=== PATIENT | male | born 1950 | race Caucasian/White ===

== ENCOUNTER 2020-09-24 22:26 | Observation (INO) | payer MEDICARE, OTHER, SELFPAY ==
[2020-09-24 22:28] VITALS: BP 181/100; PULSE 102; RESP 16; TEMP 36.6; O2SAT 97; BMI 32.0
--- NOTE | 2020-09-24 23:01 | HMH.EDGIBL ---
ED Disposition Clinical Impression: Lower gastrointestinal hemorrhage, Acute proctitis Disposition: Admitted as Observation Condition on Discharge: Good Referrals: Constantino Magallanes MD [Primary Care Provider] - - Critical Care Critical Care Time: No Attestation: On 09/24/20, the high probability of a clinically significant, sudden or life threatening deterioration of the following system(s) required my full and direct attention, intervention and personal management. The time I documented below is in addition to time spent performing reported procedures but includes the following listed in this critical care notation. Medical Decision Making - Medical Records Medical records reviewed: Yes: I reviewed the patient's medical records. - Luis Inquiry Pt receiving controlled substance: No Vital Signs: 09/24/20 22:28 09/25/20 00:03 Temperature 97.9 F Temperature Source Oral Pulse Rate 100 H Pulse Rate [Right] 102 H Respiratory Rate 16 Blood Pressure 154/92 H Blood Pressure [Right Arm] 181/100 H Blood Pressure Mean [Right Arm] 127 02 Sat by Pulse Oximetry 97 100 Oxygen Delivery Method Room Air - Lab Data Lab results reviewed: Yes: I reviewed the patient's lab results. Lab Results 09/24/20 22:45: WBC 6.8, RBC 4.11 L, Hgb 13.5 L, Hct 41.1 L, MCV 100.0 H, MCH 32.8 H, MCHC 32.8, RDW 13.0, Plt Count 275, MPV 7.6, Neut % (Auto) 55.8, Lymph % (Auto) 31.9, [place] % (Auto) 7.8, Eos % (Auto) 4.1, Baso % (Auto) 0.3, Neut # (Auto) 3.8, Lymph # (Auto) 2.2, [place] # (Auto) 0.5, Eos # (Auto) 0.3, Baso # (Auto) 0.0, ESR 15 09/24/20 22:45: Sodium 133 L, Potassium 4.1, Chloride 101, Carbon Dioxide 21 L, Anion Gap 15.1 H, BUN 12, Creatinine 0.80, Estimated Creat Clear 97, Estimated GFR 96, Est GFR ( Amer) 116, Glucose 92, Calcium 9.1, Total Bilirubin 0.4, AST 32, ALT 26, Alkaline Phosphatase 90, C-Reactive Protein 0.7, Total Protein 7.5, Albumin 4.6, Globulin 2.9, Albumin/Globulin Ratio 1.6, Amylase 68, Lipase 52, Procalcitonin 0.034 09/24/20 23:20: Urine Color Yellow, Urine Appearance Clear, Urine pH 6.0, Ur Specific [place] 1.010, Urine Protein Negative, Urine Glucose (UA) Negative, Urine Ketones Negative, Urine Blood Trace-l, Urine Nitrate Negative, Urine Bilirubin Negative, Urine Urobilinogen 0.2, Ur Leukocyte Esterase Negative, Urine WBC Occasional, Ur Squamous Epith Cells Occasional, Urine Bacteria Trace 09/24/20 23:20: Stool Occult Blood Positive A 09/24/20 23:27: PT 10.9, INR 0.92 Result diagrams: 09/24/20 22:45 09/24/20 22:45 Orders (Tests/Meds): ED MEDICATIONS Generic Name Dose Route Start Last Admin Trade Name Freq PRN Reason Stop Dose Admin Sodium Chloride 1,000 mls @ 999 mls/hr 09/24/20 23:15 09/24/20 23:32 Sod Chlor 0.9% 1000ml Bag IV 09/25/20 00:15 999 mls/hr .Q1H1M AMANDA Administration Pantoprazole Sodium 80 mg/ 100 mls @ 10 mls/hr 09/25/20 00:05 Sodium Chloride IV 09/27/20 00:04 .Q10H AMANDA Sodium Chloride 8 ml 09/24/20 23:04 Sodium Chloride 0.9% 10ml Vial IV 10/24/20 23:03 NEEDED PRN dilute pepcid Discontinued Medications Generic Name Dose Route Start Last Admin Trade Name Freq PRN Reason Stop Dose Admin Famotidine 20 mg 09/24/20 23:04 09/24/20 23:31 Famotidine 20mg/2ml Vial IV 09/24/20 23:05 20 mg ONCE ONE Administration Pantoprazole Sodium 80 mg/ 100 mls @ 100 mls/hr 09/24/20 23:04 09/24/20 23:31 Sodium Chloride IV 09/25/20 00:03 100 mls/hr ONCE ONE Administration Iopamidol 75 ml 09/24/20 23:58 09/24/20 23:58 Iopamidol-370 (76%);100ml Bottle IV 09/24/20 23:59 75 ml ONCE ONE Administration Metoclopramide HCl 10 mg 09/24/20 23:04 09/24/20 23:31 Metoclopramide Hcl 10mg/2ml Vial IVP 09/24/20 23:05 10 mg ONCE ONE Administration Ondansetron HCl 4 mg 09/24/20 23:04 09/24/20 23:31 Ondansetron 4mg/2ml Vial IV 09/24/20 23:05 4 mg ONCE ONE Administration Sodium Chloride 10 ml 09/24/20 23:
--- NOTE | 2020-09-24 23:02 | CT_ITS ---
PROCEDURE INFORMATION: Exam: CT Abdomen And Pelvis With Contrast Exam date and time: 09/24/2020 11:02 PM Age: 70 years old Clinical indication: Patient HX: Rectal bleeding gassy feeling in bad TECHNIQUE: Imaging protocol: Computed tomography of the abdomen and pelvis with contrast. Radiation optimization: All CT scans at this facility use at least one of these dose optimization techniques: automated exposure control; mA and/or kV adjustment per patient size (includes targeted exams where dose is matched to clinical indication); or iterative reconstruction. Contrast material: ISOVUE; Contrast volume: 75 ml; Contrast route: IV; COMPARISON: No relevant prior studies available. FINDINGS: Liver: There is a small irregular area of enhancement involving the left lobe of the liver measuring 1.2 cm. This could reflect hemangioma. Gallbladder and bile ducts: Normal. No calcified stones. No ductal dilation. Pancreas: Normal. No ductal dilation. Spleen: Normal. No splenomegaly. Adrenal glands: Normal. No mass. Kidneys and ureters: Normal. No hydronephrosis. Stomach and bowel: There is wall thickening involving the rectum concerning for proctitis. There is diverticulosis in the descending and rectosigmoid colons. There is no additional areas of colitis. Appendix: Appendix normal. No small bowel obstruction. Intraperitoneal space: Unremarkable. No free air. No significant fluid collection. Vasculature: Unremarkable. No abdominal aortic aneurysm. Lymph nodes: Unremarkable. No enlarged lymph nodes. Urinary bladder: Mild urinary bladder wall thickening could be due to cystitis. Reproductive: Unremarkable as visualized. Bones/joints: Unremarkable. No acute fracture. Soft tissues: Small bilateral inguinal hernias with fat. IMPRESSION: 1. Proctitis. 2. Diverticulosis without diverticulitis.
[2020-09-24 23:26] LABS: Microscopic, Urine URINE MICROSCOPIC (MICROSCOPIC)
[2020-09-24 23:27] LABS: Basophils % 0.3 % (0.1-2.0); Eosinophils # 0.3 K/mm3 (0.0-0.4); Eosinophils % 4.1 % (0.1-12.0); Hematocrit 41.1 % (42.0-52.0); Hemoglobin 13.5 g/dL (14.1-18.0); Lymphocytes # 2.2 K/mm3 (0.7-4.5); Lymphocytes % 31.9 % (10-50); Mean Corpuscular HGB Conc 32.8 g/dL (31.8-35.4); Mean Corpuscular Hemoglobin 32.8 pg (27.0-31.2); Mean Platelet Volume 7.6 fl (7.4-10.4); Monocytes # 0.5 K/mm3 (0.1-1.0); Monocytes % 7.8 % (1.7-9.3); Neutrophils # 3.8 K/mm3 (1.8-7.8); Neutrophils % 55.8 % (37.0-80.0); Platelet Count 275 K/mm3 (142-424); Red Blood Count 4.11 M/mm3 (4.60-6.20); White Blood Count 6.8 K/mm3 (4.8-10.8)
[2020-09-24 23:30] LABS: Appearance,Urine CLEAR (Clear); Bilirubin,Urine Negative (Negative); Blood, Urine TRACE-L (Negative); Color,Urine YELLOW (Yellow); Glucose,Urine (UA) Negative (Negative); Ketones,Urine Negative (Negative); Leukocyte Esterase,Urine Negative (Negative); Nitrate,Urine Negative (Negative); Protein,Urine Negative (Negative); Urobilinogen,Urine 0.2 EU/dl (0.2)
[2020-09-24 23:31] LABS: Alanine Aminotransferase 26 U/L (12-78); Albumin Level 4.6 g/dl (3.5-5.0); Albumin/Globulin Ratio 1.6 (1.1-1.8); Alkaline Phosphatase 90 U/L (38-126); Amylase 68 U/L (30-110); Anion Gap 15.1 mEq/L (5-15); Aspartate Amino Transferase 32 U/L (17-59); Bilirubin,Total 0.4 mg/dl (0.2-1.3); Blood Urea Nitrogen 12 mg/dl (9-20); Calcium 9.1 mg/dl (8.4-10.2); Carbon Dioxide 21 mmol/L (22.0-30.0); Chloride 101 mmol/L (98-107); Creatinine Clearance Estimated 97 mL/min (50-200); Estimated Glomerular Filt Rate 96 ml/min (>60); GFR (African American) 116 ML/MIN (>60); Globulin 2.9 g/dL (1.3-3.2); Glucose 92 mg/dl (74-100); Lipase 52 U/L (23-300); Potassium 4.1 mmoL/L (3.5-5.1); Sodium 133 mmol/L (136-145); Total Protein,Serum 7.5 g/dl (6.3-8.2)
[2020-09-24 23:36] LABS: C-Reactive Protein 0.7 mg/L (0-4)
[2020-09-24 23:37] LABS: Occult Blood,Stool Positive (Negative)
[2020-09-24 23:47] LABS: Bacteria,Urine Trace /lpf; Squamous Epithelial Cell,Urine Occasional #/hpf (0-5); WBC,Urine Occasional #/hpf (0-3)
[2020-09-24 23:49] LABS: Adenovirus,PCR Not Detected (NotDetected); Bordetella Pertussis Not Detected (NotDetected); Chlamydophila Pneumoniae, PCR Not Detected (NotDetected); Coronavirus 19, PCR Not Detected (NotDetected); Coronavirus 229E Not Detected (NotDetected); Coronavirus NL63 Not Detected (NotDetected); Coronavirus OC43 Not Detected (NotDetected); Coronovirus HKU1,PCR Not Detected (NotDetected); Human Metapneumovirus Not Detected (NotDetected); Influenza A, PCR Not Detected (NotDetected); Influenza AH1, 2009 Not Detected (NotDetected); Influenza AH1, PCR Not Detected (NotDetected); Influenza AH3,PCR Not Detected (NotDetected); Influenza B, PCR Not Detected (NotDetected); Mycoplasma Pneumoniae, PCR Not Detected (NotDetected); Parainfluenza 1, PCR Not Detected (NotDetected); Parainfluenza 2, PCR Not Detected (NotDetected); Parainfluenza 3, PCR Not Detected (NotDetected); Parainfluenza 4, PCR Not Detected (NotDetected); Respiratory Syncytial Virus Not Detected (NotDetected); Rhinovirus/Enterovirus Not Detected (NotDetected)
[2020-09-24 23:51] LABS: Procalcitonin 0.034 ng/mL (0.0-2.0)
[2020-09-25] VITALS (19 sets, daily range): BP systolic 111–158; BP diastolic 61–92; PULSE 72–107; RESP 16–20; TEMP 36.5–36.8; O2SAT 93–100; BMI 31.7
[2020-09-25 00:13] LABS: Erythrocyte Sedimentation Rate 15 mm/hr (0-20)
[2020-09-25 00:25] LABS: INR 0.92 (0.9-1.1); Prothrombin Time 10.9 seconds (10.1-12.5)
--- NOTE | 2020-09-25 02:03 | PC.NURSE ---
PT ARRIVED TO FLOOR VIA W/C FROM ED WITH STAFF 0204
--- NOTE | 2020-09-25 04:32 | PC.NURSE ---
Pt has not c/o any discomfort to abdomen since arrival to shift. Has ambulated to BR x1. Pt states that he had 1 bloody stool that was not seen by staff. Pt was advised to not flush toliet next time he has a stool. No other concerns. Will continue to monitor.
[2020-09-25 06:51] LABS: Chloride 100 mmol/L (98-107)
[2020-09-25 06:52] LABS: Potassium 4.8 mmoL/L (3.5-5.1); Sodium 134 mmol/L (136-145)
[2020-09-25 06:55] LABS: Anion Gap 13.8 mEq/L (5-15); Blood Urea Nitrogen 11 mg/dl (9-20); Calcium 8.9 mg/dl (8.4-10.2); Carbon Dioxide 25 mmol/L (22.0-30.0); Creatinine Clearance Estimated 96 mL/min (50-200); Estimated Glomerular Filt Rate 96 ml/min (>60); GFR (African American) 116 ML/MIN (>60); Glucose 106 mg/dl (74-100)
[2020-09-25 07:02] LABS: Basophils % 0.3 % (0.1-2.0); Eosinophils # 0.2 K/mm3 (0.0-0.4); Hematocrit 38.3 % (42.0-52.0); Hemoglobin 12.6 g/dL (14.1-18.0); Lymphocytes # 1.7 K/mm3 (0.7-4.5); Mean Corpuscular HGB Conc 32.9 g/dL (31.8-35.4); Mean Corpuscular Hemoglobin 33.1 pg (27.0-31.2); Mean Corpuscular Volume 100.4 fl (80-94); Mean Platelet Volume 7.7 fl (7.4-10.4); Monocytes # 0.5 K/mm3 (0.1-1.0); Monocytes % 6.1 % (1.7-9.3); Neutrophils # 5.7 K/mm3 (1.8-7.8); Neutrophils % 70.6 % (37.0-80.0); Platelet Count 289 K/mm3 (142-424); Red Blood Count 3.81 M/mm3 (4.60-6.20); Red Cell Distribution Width 13.1 % (11.5-17.5); White Blood Count 8.1 K/mm3 (4.8-10.8)
--- NOTE | 2020-09-25 07:07 | HMH.PHAVTE ---
[facility] Pharmacy VTE Monitoring - Patient Demographics Admission date: 09/24/20 Report Date: 09/25/20 Time: 07:08 Allergies/Adverse Reactions: Patient Allergies No Known Allergies Allergy (Unverified 04/08/17 14:44) Height: 1.75 m Weight: 97.182 kg Patient Problems: Current Active Problems Lower gastrointestinal hemorrhage (Acute) Acute proctitis (Acute) - VTE Risk Labs: VTE Related Lab Results Hgb 12.6 g/dL (14.1-18.0) L 09/25/20 05:42 Hct 38.3 % (42.0-52.0) L 09/25/20 05:42 Plt Count 289 K/mm3 (142-424) 09/25/20 05:42 PT 10.9 seconds (10.1-12.5) 09/24/20 23:27 INR 0.92 (0.9-1.1) 09/24/20 23:27 BUN 12 mg/dl (9-20) 09/24/20 22:45 Creatinine 0.80 mg/dl (0.66-1.25) 09/24/20 22:45 Estimated Creat Clear 97 mL/min (50-200) 09/24/20 22:45 VTE Score: 3 VTE Risk Level: Low Risk - Prophylaxis VTE Prophylaxis Ordered?: Yes Types of VTE Prophylaxis: TEDS Knee High Location of Applied Device: Bilateral Lower Extremeties
--- NOTE | 2020-09-25 07:35 | HMH.PHAINT ---
MEDICATION RECONCILIATION COMPLETED ON PATIENT USING EXTERNAL FILL HISTORY FROM PHARMACY. -MARGE WATTERS, MARQUEZD
--- NOTE | 2020-09-25 08:40 | HMH.ACPN2 ---
Internal Medicine - PN: Subj *Date: 09/25/20 *Time: 08:40 Interval history: Mr. Jones is a 70-year-old male with a history of hyperlipidemia, gout, hypertension, and alcohol abuse who presented to [facility] after having several bloody stools at home. He states this all started about 5:30 PM last evening with his first stool. After having 3-4 stools at home he did come to the ER for evaluation. He states he has had a total of 8 bloody stools since yesterday. He denies nausea, vomiting, and does have some mid abdominal gas pain. He also has heartburn. He states he has always had a lot of gas since about 14 years of age. He has repeatedly declined colonoscopies. He denies having hemorrhoids or previous problems. He denies dizziness and difficulty with walking. He has been voiding QS and has not noted any blood from any other source. He states he normally drinks about 8 beers a day. He also chews tobacco. This morning he states he has had several bloody stools. He denies pain. He slept a couple of hours. He is n p.o. for a GI consult. Exam Vital signs and Labs for Last 24 Hours: Temp Pulse Resp BP Pulse Ox 97.7 F 90 20 148/75 H 98 09/25/20 07:43 09/25/20 07:43 09/25/20 07:43 09/25/20 07:43 09/25/20 07:43 Laboratory Results - last 24 hr 09/24/20 22:45: WBC 6.8, RBC 4.11 L, Hgb 13.5 L, Hct 41.1 L, MCV 100.0 H, MCH 32.8 H, MCHC 32.8, RDW 13.0, Plt Count 275, MPV 7.6, Neut % (Auto) 55.8, Lymph % (Auto) 31.9, [place] % (Auto) 7.8, Eos % (Auto) 4.1, Baso % (Auto) 0.3, Neut # (Auto) 3.8, Lymph # (Auto) 2.2, [place] # (Auto) 0.5, Eos # (Auto) 0.3, Baso # (Auto) 0.0, ESR 15 09/24/20 22:45: Sodium 133 L, Potassium 4.1, Chloride 101, Carbon Dioxide 21 L, Anion Gap 15.1 H, BUN 12, Creatinine 0.80, Estimated Creat Clear 97, Estimated GFR 96, Est GFR ( Amer) 116, Glucose 92, Calcium 9.1, Total Bilirubin 0.4, AST 32, ALT 26, Alkaline Phosphatase 90, C-Reactive Protein 0.7, Total Protein 7.5, Albumin 4.6, Globulin 2.9, Albumin/Globulin Ratio 1.6, Amylase 68, Lipase 52, Procalcitonin 0.034 09/24/20 23:20: Urine Color Yellow, Urine Appearance Clear, Urine pH 6.0, Ur Specific [place] 1.010, Urine Protein Negative, Urine Glucose (UA) Negative, Urine Ketones Negative, Urine Blood Trace-l, Urine Nitrate Negative, Urine Bilirubin Negative, Urine Urobilinogen 0.2, Ur Leukocyte Esterase Negative, Urine WBC Occasional, Ur Squamous Epith Cells Occasional, Urine Bacteria Trace 09/24/20 23:20: Stool Occult Blood Positive A 09/24/20 23:27: PT 10.9, INR 0.92 09/24/20 23:30: Chlamy pneumoniae PCR Not detected, Adenovirus (PCR) Not detected, B. pertussis DNA (PCR) Not detected, Coronavirus OC43 (PCR) Not detected, Coronavirus HKU1 (PCR) Not detected, Coronavirus 229E (PCR) Not detected, SARS-CoV-2 (PCR) Not detected, Coronavirus NL63 (PCR) Not detected, Human Metapneumovir PCR Not detected, Influenza A (H1) PCR Not detected, Influ A (H1N1/09) PCR Not detected, Influenza A (H3) PCR Not detected, Influenza Type A (PCR) Not detected, Influenza Type B (PCR) Not detected, M. pneumoniae (PCR) Not detected, Parainfluenza 1 (PCR) Not detected, Parainfluenza 2 (PCR) Not detected, Parainfluenza 3 (PCR) Not detected, Parainfluenza 4 (PCR) Not detected, RSV (PCR) Not detected, Entero/Rhino (PCR) Not detected 09/25/20 05:42: WBC 8.1, RBC 3.81 L, Hgb 12.6 L, Hct 38.3 L, MCV 100.4 H, MCH 33.1 H, MCHC 32.9, RDW 13.1, Plt Count 289, MPV 7.7, Neut % (Auto) 70.6, Lymph % (Auto) 21.0, [place] % (Auto) 6.1, Eos % (Auto) 2.0, Baso % (Auto) 0.3, Neut # (Auto) 5.7, Lymph # (Auto) 1.7, [place] # (Auto) 0.5, Eos # (Auto) 0.2, Baso # (Auto) 0.0 09/25/20 05:42: Sodium 134 L, Potassium 4.8, Chloride 100, Carbon Dioxide 25, Anion Gap 13.8, BUN 11, Creatinine 0.80, Estimated Creat Clear 96, Estimated GFR 96, Est GFR ( Amer) 116, Glucose 106 H, Calcium 8.9 I & O for Last 24 hours: Intake & Output 09/22/20 09/23/20 09/24/20 09/25/20 11:59 11:59 11:59 11:59 Intake Total
--- NOTE | 2020-09-25 09:03 | HMH.HP ---
*Admission Date: 09/24/20 <ChanningBeckieRajni - 09/25/20 09:13> *Chief complaint: Rectal bleeding <Rajni Snell 09/25/20 09:13> *History of present illness: Mr. Jones is a 70-year-old male with a history of hyperlipidemia, gout, hypertension, and alcohol abuse who presented to [facility] after having several bloody stools at home. He states this all started about 5:30 PM last evening with his first stool. After having 3-4 stools at home he did come to the ER for evaluation. He states he has had a total of 8 bloody stools since yesterday. He denies nausea, vomiting, and does have some mid abdominal gas pain. He also has heartburn. He states he has always had a lot of gas since about 14 years of age. He has repeatedly declined colonoscopies. He denies having hemorrhoids or previous problems. He denies dizziness and difficulty with walking. He has been voiding QS and has not noted any blood from any other source. He states he normally drinks about 8 beers a day. He also chews tobacco. He does take a baby aspirin a day and drinks large quantities of coffee. He does not take NSAIDs. CT of the abdomen revealed a proctitis and diverticulosis without diverticulitis. Laboratory data on admission with a hemoglobin of 13.5 and hematocrit of 41.4 and this a.m. is 12.6 and 38.3. Blood chemistries show sodium of 133, potassium of 4.1; renal function is satisfactory. Stool for occult blood was positive. This morning he states he has had several bloody stools since admission. He denies pain. He slept a couple of hours. He is n p.o. for a GI consult. <Rajni Snell 09/25/20 09:13> [facility] History 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: Reports:: Gastroesophageal Reflux Disease(GERD), Hyperlipidemia, Hypertension Denies:: Cancer, Diabetes Mellitus Type 1, Diabetes Mellitus Type 2, MRSA <Rajni Snell 09/25/20 09:13> *Have you ever received a pneumonia vaccine?: Yes <Rajni Snell 09/25/20 09:13> *Have you received a flu vaccine this season?: Yes <Rajni Snell 09/25/20 09:13> Other Surgeries: Yes: No Previous Surgery <Beckie Snellhy 09/25/20 09:13> Amputation: No <ChanningRajni 09/25/20 09:13> - *Social History Smoking Status: Former smoker <ChanningRajni 09/25/20 09:13> Tobacco Type: cigarettes, smokeless tobacco <Beckie Snellhy 09/25/20 09:13> # Packs/Day (cigarettes): 2 <Beckie Snellhy 09/25/20 09:13> Alcohol Intake: current <Beckie Snellhy 09/25/20 09:13> Alcohol Intake Frequency:: 3 or more drinks per day <Beckie Snellhy 09/25/20 09:13> *Occupational Status:: retired <Beckie Snellhy 09/25/20 09:13> Housing: house <Beckie Snellhy 09/25/20 09:13> Household Members: family <Beckie Snellhy 09/25/20 09:13> *Travel in the last 8 weeks: None <ChanningRajni 09/25/20 09:13> Family Hx:: Asthma, Cancer, Hyperlipidemia, Hypertension, Alcoholism <Beckie Snellhy 09/25/20 09:13> Review of Systems - Constitutional Denies fatigue, Denies fever(s) <ChanningRajni 09/25/20 09:13> - Eyes Denies change in vision <ChanningRajni 09/25/20 09:13> - ENT Denies ear pain, Denies nasal congestion, Denies sore throat <Beckie Snellhy 09/25/20 09:13> - *Cardiovascular Denies chest pain, Denies shortness of breath <ChanningRajni 09/25/20 09:13> - *Respiratory Denies chest congestion, Denies cough, Denies shortness of breath <ChanningRajni 09/25/20 09:13> - *Gastrointestinal Reports belching, Reports change in stools, Reports cramping, Reports heartburn, Reports heartburn, Reports bright, red blood in stools, Denies abdominal pain, Denies constipation, Denies vomiting blood, Denies nausea, Denies vomiting <Beckie Snellhy 09/25/20 09:13> - *Genitourinary Denies difficulty urinating <Rajni Snell 09/25/20 09:13> - *Musculoskeletal Denies abnormal walking <Rajni Snell 09/25/20 09:13> - *Neurologic Denies abnormal walking, Denies unsteadiness, Denies dizziness, Denies localized weakness,
--- NOTE | 2020-09-25 14:15 | HMH.ANESCL ---
[facility] Anesthesia Checklist - Patient Identification Patient Identification: Arm Band - Structural Data Admitted From: Home Planned Operative Procedure/s: Colonoscopy Consent for Planned Operative Procedure(s) Verified: Yes - NPO Status Verified Time NPO: 12:00 (Prep) - Airway Assessment C-Spine Mobility Assessed: Yes TMJ Mobility Assessed: Yes Dentition: Partials - Neurological Assessment Level of Consciousness: Awake Hx Seizures: No Numbness or tingling in extremities: No - Anesthesia Plan Anesthesia Risk discussed: Yes Anesthesia Plan: Verified ASA Class: III Anesthesia Type: MAC [facility] History I have reviewed the patient's past medical history: Yes 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: Reports:: Gastroesophageal Reflux Disease(GERD), Hyperlipidemia, Hypertension Denies:: Cancer, Diabetes Mellitus Type 1, Diabetes Mellitus Type 2, MRSA *Have you ever received a pneumonia vaccine?: Yes *Have you received a flu vaccine this season?: Yes Other 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: Reports: Anemia Anesthesia experience/problems:: None Other Surgeries: Yes: No Previous Surgery Amputation: No - *Social History Smoking Status: Former smoker Tobacco Type: cigarettes, smokeless tobacco # Packs/Day (cigarettes): 2 Alcohol Intake: current Alcohol Intake Frequency:: 3 or more drinks per day Substance Use Type: denies use *Occupational Status:: retired Housing: house Household Members: family *Travel in the last 8 weeks: None Family Hx:: Asthma, Cancer, Hyperlipidemia, Hypertension, Alcoholism
--- NOTE | 2020-09-25 14:52 | P.PCN_ITS ---
[facility] Procedure Note Procedure Note:: Colonoscopy Procedure Report: Colonoscopy with snare biopsies Endoscopist: Brennan Yañez II, MD Referring physician: Pradip Magallanes MD Date of Procedure: September 25, 2020 Equipment: Olympus 190 variable stiffness pediatric colonoscope Sedation: MAC sedation Indication: Mr. Hong is a 70-year-old gentleman who presented with hematochezia/bright red rectal bleeding that occurred 8 times yesterday and 2 times again this morning. His initial hemoglobin and hematocrit were 13.5 and 41.4 respectively and these dropped down to 12.6 and 38.3 respectively this morning. The patient did have a CT scan of the abdomen and pelvis which showed wall thickening involving the rectum concerning for proctitis. There was also diverticulosis of the left colon on CAT scan but no diverticulitis. The patient did have some initial epigastric abdominal pain. He reports no change in bowel habits or weight loss. He reports no family history of colon cancer. This is his first colonoscopy. Procedure: Prior to the procedure, a history and physical exam was performed, and patient's medications and allergies were reviewed. The risks, benefits and alternatives of the sedation and procedure were discussed with the patient. All questions were answered and informed consent was obtained. The patient was brought to the procedure room. Patient identification and proposed procedure were verified by the physician and the nurse. The patient was placed in a left lateral decubitus position and the scope was passed under direct vision. Throughout the procedure, the patient's blood pressure, pulse, and oxygen saturations were monitored continuously. The colonoscopy was accomplished without difficulty. The patient tolerated the procedure well. Findings: On digital rectal examination there was normal rectal tone. There were no external hemorrhoids. There was an anterior rectal cavitary mass lesion on digital exam in the anterior rectum making prostate evaluation difficult. The colonoscope was introduced through the anal canal to the rectum and advanced to the cecum. The ileocecal valve and appendiceal orifice were identified. The scope was advanced a short distance into the ileum which appeared grossly normal. The scope was then withdrawn into the colon. There was diverticulosis identified throughout the colon but more predominantly and extensively in the descending and sigmoid colon. Within the rectum extending to 4-1/2 cm from the anal verge is an anterior cavitated and marginated rectal mass lesion that encompassed one third the circumference of the anterior rectum and extended all the way to the pectinate line. This was felt to be 3.5-4.5 cm in diameter. Multiple snare biopsies were obtained for tissue and the tissue was sent for pathology and MSI (microsatellite instability?Taylor syndrome) testing. Upon retroflexion within the rectum there were grade 1-2 internal hemorrhoids. Impression: 1. Rectal cancer (cavitary, anterior wall and extending to pectinate line/anal verge) 2. Extensive pandiverticulosis 3. Grade 1-2 internal hemorrhoids Plan: The patient will require preoperative radiation therapy followed by surgery and this is certainly below the pelvic reflection. This should go to tertiary center for preoperative oncologic evaluation and expert colorectal surgery (based upon distal location) and I will discuss with Leonard Gomez at the [facility]. I would like for the patient to take CAT scan films with him and he will likely have additional imaging for staging. I will obtain CEA level and iron studies. I will follow-up the pathology and MSI testing. I will discuss the fin
[2020-09-25 15:34] LABS: Iron 121 ug/dL (49-181)
[2020-09-25 15:44] LABS: Total Iron Binding Capacity 356 ug/dL (261-462)
[2020-09-25 16:10] LABS: Ferritin 79.3 ng/ml (17.9-464)
--- NOTE | 2020-09-25 19:35 | PC.NURSE ---
PT IS SITTING UP IN THE CHAIR WITH FAMILY AT BEDSIDE. ALERT AND ORIENTED X4. PT HAD A LOOSE BRIGHT BRIGHT RED STOOL EARLY THIS MORNING. TOLERATED BOWEL PREP WELL. SINCE PT HAS ARRIVED BACK TO THE FLOOR FROM COLONOSCOPY HE HAS TOLERATED LOW RESIDUE DIET WELL. LUNG SOUNDS CLEAR. ABDOMEN SOFT/NON TENDER WITH ACTIVE BOWEL SOUNDS. AMBULATES TO THE BATHROOM AND AROUND THE ROOM. VSS. WILL CONTINUE MONITOR.
[2020-09-26] VITALS: BP 131/80; PULSE 79; RESP 18; TEMP 36.8; O2SAT 99
--- NOTE | 2020-09-26 02:30 | PC.NURSE ---
shift summary pt is alert and oriented X4. lung are clear with sats maintained 95% or above on room air. pt has rested comfortable for most of the night with no complaints. pt is able to ambulate to restroom unassisted. spoke with pts son to update him on the plan of care for the pt. pt denies any pain, nausea, or vomiting. no acute changes, will continue to monitor.
[2020-09-26 04:00] VITALS: BP 139/85; PULSE 80; RESP 16; TEMP 36.6; O2SAT 97
[2020-09-26 05:31] VITALS: BMI 30.5
[2020-09-26 08:00] VITALS: BP 153/73; PULSE 93; RESP 18; TEMP 36.7; O2SAT 97
--- NOTE | 2020-09-26 08:34 | HMH.ACPN2 ---
<Rajni Snell - Last Filed: 09/26/20 08:34> Internal Medicine - PN: Subj *Date: 09/26/20 *Time: 08:34 Interval history: Patient had colonoscopy yesterday which indicates rectal cancer. Patient is aware of results and has discussed with Dr. Yañez and Dr. Magallanes. Plan is for him to go to for radiation and then surgery. Patient seems to be on board with this plan thus far. He states he did have a bloody stool large amount this a.m. He has been eating some but is not very hungry. He has gas pains but does not describe it as pain. He denies nausea and vomiting. He is voiding QS. He denies chest pain and shortness of breath. He ambulates without difficulty. Exam Vital signs and Labs for Last 24 Hours: Temp Pulse Resp BP Pulse Ox 97.9 F 80 16 139/85 97 09/26/20 04:00 09/26/20 04:00 09/26/20 04:00 09/26/20 04:00 09/26/20 04:00 Laboratory Results - last 24 hr 09/25/20 05:42: Iron 121, TIBC 356, Iron Saturation 33.61118, Ferritin 79.3 I & O for Last 24 hours: Intake & Output 09/23/20 09/24/20 09/25/20 09/26/20 11:59 11:59 11:59 11:59 Intake Total 1250 / 1250 400 / 400 Output Total 0 / 0 0 / 0 Balance 1250 / 1250 400 / 400 Weight 214 lb 4 oz 206 lb 4 oz - Constitutional no acute distress (Standing up in room at window) - *Routine Respiratory Exam Present: CTA bilaterally (Anteriorly and posteriorly) - *Routine Cardiovascular Exam Present: RRR - *Routine Abdominal Exam Present: soft, normoactive bowel sounds. Absent: tenderness - *Routine Extremities Exam Absent: edema, calf tenderness - *Routine Neurological Exam Present: alert, oriented X3 Assessment and Plan (1) Hypertension Status: Chronic Category: Medical Code(s): I10 - Essential (primary) hypertension (2) Hyperlipidemia Status: Chronic Category: Medical Code(s): E78.5 - Hyperlipidemia, unspecified (3) Alcohol abuse Status: Chronic Category: Social Hx Code(s): F10.10 - Alcohol abuse, uncomplicated (4) Lower gastrointestinal hemorrhage Status: Acute Category: Medical Code(s): K92.2 - Gastrointestinal hemorrhage, unspecified (5) GERD (gastroesophageal reflux disease) Status: Chronic Category: Medical Code(s): K21.9 - Gastro-esophageal reflux disease without esophagitis (6) Rectal cancer Status: Acute Category: Medical Code(s): C20 - Malignant neoplasm of rectum (7) Diverticulosis Status: Chronic Category: Medical Code(s): K57.90 - Diverticulosis of intestine, part unspecified, without perforation or abscess without bleeding (8) Hemorrhoids Status: Chronic Category: Medical Code(s): K64.9 - Unspecified hemorrhoids - Assessment and plan all Dx Assessment and Plan for all problems:: Awake specific treatment plan from Dr. Yañez. Will repeat CBC this a.m. <Constantino Magallanes - Last Filed: 09/26/20 13:44> Internal Medicine - PN: Subj *Date: 09/26/20 *Time: 13:38 Exam Vital signs and Labs for Last 24 Hours: Temp Pulse Resp BP Pulse Ox 98.5 F 85 18 148/87 H 100 09/26/20 12:19 09/26/20 12:19 09/26/20 12:19 09/26/20 12:19 09/26/20 12:19 Laboratory Results - last 24 hr 09/25/20 05:42: Iron 121, TIBC 356, Iron Saturation 33.80944, Ferritin 79.3 09/26/20 09:00: WBC 7.2, RBC 3.52 L, Hgb 11.8 L, Hct 34.0 L, MCV 96.5 H, MCH 33.3 H, MCHC 34.6, RDW 13.1, Plt Count 288, MPV 8.0, Neut % (Auto) 80.0, Lymph % (Auto) 12.4, Bay % (Auto) 6.4, Eos % (Auto) 0.9, Baso % (Auto) 0.2, Neut # (Auto) 5.8, Lymph # (Auto) 0.9, Bay # (Auto) 0.5, Eos # (Auto) 0.1, Baso # (Auto) 0.0 I & O for Last 24 hours: Intake & Output 09/24/20 09/25/20 09/26/2009/21 11:59 11:59 11:59 11:59 Intake Total 1250 / 1250 1000 / 1000 Output Total 0 / 0 500 / 500 Balance 1250 / 1250 500 / 500 Weight 214 lb 4 oz 206 lb 4 oz Assessment and Plan (1) Hypertension Status: Chronic Category: Medical Code(s): I10 - Essential (primary)
[2020-09-26 09:27] LABS: Basophils % 0.2 % (0.1-2.0); Eosinophils # 0.1 K/mm3 (0.0-0.4); Eosinophils % 0.9 % (0.1-12.0); Hemoglobin 11.8 g/dL (14.1-18.0); Lymphocytes # 0.9 K/mm3 (0.7-4.5); Lymphocytes % 12.4 % (10-50); Mean Corpuscular HGB Conc 34.6 g/dL (31.8-35.4); Mean Corpuscular Hemoglobin 33.3 pg (27.0-31.2); Mean Corpuscular Volume 96.5 fl (80-94); Monocytes # 0.5 K/mm3 (0.1-1.0); Monocytes % 6.4 % (1.7-9.3); Neutrophils # 5.8 K/mm3 (1.8-7.8); Platelet Count 288 K/mm3 (142-424); Red Blood Count 3.52 M/mm3 (4.60-6.20); Red Cell Distribution Width 13.1 % (11.5-17.5); White Blood Count 7.2 K/mm3 (4.8-10.8)
[2020-09-26 12:19] VITALS: BP 148/87; PULSE 85; RESP 18; TEMP 36.9; O2SAT 100
[2020-09-27 08:21] LABS: CEA 2.8 ng/mL (0.0-4.7)
--- NOTE | 2020-09-28 08:11 | HMH.DCSUM ---
General - General Admission date:: 09/25/20 <Constantino Magallanes - 10/07/20 14:34> 09/25/20 <Rajni Snell - 09/28/20 08:40> Discharge date: 09/26/20 <ChanningRajni - 09/28/20 08:40> HPI HPI: Mr. Jones is a 70-year-old male with a history of hyperlipidemia, gout, hypertension, and alcohol abuse who presented to [facility] ER after having several bloody stools at home. He stated this all started about 5:30 PM the previous evening with the first stool. After having 3-4 stools at home he presented to the ER for evaluation. He stated he had a total of 8 bloody stools since the previous day. He denied nausea, vomiting, and described some mid abdominal gas pain. He also had heartburn. He stated he had always experienced increased gas since about 14 years of age. He repeatedly declined colonoscopies. He denied having hemorrhoids or previous bowel problems. He denied dizziness and difficulty with walking. He was voiding QS and had not noted any blood from any other source. He stated he normally was drinking about 8 beers a day. He also noted that he chewed tobacco. He was taking a baby aspirin a day and drinking large quantities of coffee. He was not taking NSAIDs. CT of the abdomen revealed a proctitis and diverticulosis without diverticulitis. Laboratory data on admission revealed a hemoglobin of 13.5 and hematocrit of 41.4 with repeat of 12.6 and 38.3. Blood chemistries showed a sodium of 133, potassium of 4.1; renal function was satisfactory. Stool for occult blood was positive. The following morning he stated that he had had several bloody stools since admission. He denied pain. He slept a couple of hours. He was n.p.o. for a GI consult. <Rajni Snell - 09/28/20 08:40> Hospital Course Hospital Course: After admission patient had several additional bloody stools. He did experience some abdominal cramping but no pain. He ate without difficulty but had little appetite. He is voiding QS and ambulated without problems. Hemoglobin on admission was 13.5 and on 09/26/2020 was 11.8. Patient was seen by Dr. Yañez and had a colonoscopy on 09/25/2020 with the impression of rectal cancer, extensive pandiverticulosis, and grade 1-[address] Yañez felt that the patient would require preoperative radiation therapy followed by surgery. Direction was for the patient to go to a tertiary center for preoperative oncologic evaluation and expert colorectal surgery. This was discussed with the patient and with Dr. Leonard Gomez at the [facility]. Diagnosis was discussed with patient by Dr. Magallanes as well. On 09/26/2020 he was discharged home. Dr. Gomez's office was to be in touch with patient to arrange for an appointment as soon as possible. Patient was discharged home in stable condition. <Rajni Snell - 09/28/20 08:40> Objective Vital signs: Temp Pulse Resp BP Pulse Ox 98.5 F 85 18 148/87 H 100 09/26/20 12:19 09/26/20 12:19 09/26/20 12:19 09/26/20 12:19 09/26/20 12:19 <Constantino Magallanes - 10/07/20 14:34> Temp Pulse Resp BP Pulse Ox 98.5 F 85 18 148/87 H 100 09/26/20 12:19 09/26/20 12:19 09/26/20 12:19 09/26/20 12:19 09/26/20 12:19 <Rajni Snell - 09/28/20 08:40> Narrative: Exam Vital signs and Labs for Last 24 Hours: Temp Pulse Resp BP Pulse Ox 97.9 F 80 16 139/85 97 09/26/20 04:00 09/26/20 04:00 09/26/20 04:00 09/26/20 04:00 09/26/20 04:00 Laboratory Results - last 24 hr 09/25/20 05:42: Iron 121, TIBC 356, Iron Saturation 33.94853, Ferritin 79.3 I & O for Last 24 hours: Intake & Output 09/23/20 09/24/20 09/25/20 09/26/20 11:59 11:59 11:59 11:59 Intake Total 1250 / 1250 400 / 400 Output Total 0 / 0 0 / 0 Balance 1250 / 1250 400 / 400 Weight 214 lb 4 oz 206 lb 4 oz - Constitutional no acute distress (Standing up in room at window) - *Routine
== END 2020-09-26 14:40 | disposition home or self-care (01) ==
LOC: ER 09-25 00:56 → 2ND 09-25 01:41
PROVIDERS: Internal Medicine Gastroenterology; Nurse Practitioner Family; Admitting Provider Family Medicine; Emergency Provider Emergency Medicine; PCP Family Medicine; Visit Provider Family Medicine
PROC: 0DJD8ZZ Inspection of Lower Intestinal Tract, Via Natural or Artificial Opening Endoscopic (ICD-10-PCS; CPT 45378; principal; 2020-09-25 13:00)
DX: C20 Malignant neoplasm of rectum (principal); K21.9 Gastro-esophageal reflux disease without esophagitis; I10 Essential (primary) hypertension; E78.5 Hyperlipidemia, unspecified; K92.2 Gastrointestinal hemorrhage, unspecified; K64.1 Second degree hemorrhoids; K57.91 Diverticulosis of intestine, part unspecified, without perforation or abscess with bleeding
CPT/HCPCS: 45380; 36415; 74177; 80048; 80053; 81001; 82150; 82272; 82378; 82728; 83540; 83550; 83690; 84145; 85025; 85610; 85651; 86140; 87581; 87633; 87798; 88305; 88342; 96365; 96366; 96367; 96375; 99284; G0328; G0378; J1956; J2405; J2704; Q9967

== ENCOUNTER 2021-08-27 08:50 | Outpatient (CLI) | payer MEDICARE, OTHER, SELFPAY ==
[2021-08-27 09:01] VITALS: BMI 30.7
[2021-08-27 09:43] LABS: Alanine Aminotransferase 48 U/L (12-78); Albumin Level 4.3 g/dl (3.5-5.0); Albumin/Globulin Ratio 1.5 (1.1-1.8); Alkaline Phosphatase 163 U/L (38-126); Anion Gap 10.7 mEq/L (5-15); Aspartate Amino Transferase 48 U/L (17-59); Bilirubin,Total 0.8 mg/dl (0.2-1.3); Blood Urea Nitrogen 15 mg/dl (9-20); Calcium 9.2 mg/dl (8.4-10.2); Carbon Dioxide 26 mmol/L (22.0-30.0); Chloride 106 mmol/L (98-107); Chol/HDL Ratio 4.2 (1-3.5); Cholesterol 197 mg/dl (140-200); Creatinine Clearance Estimated 84 mL/min (50-200); Estimated Glomerular Filt Rate 111 ml/min (>60); GFR (African American) 135 ML/MIN (>60); Globulin 2.8 g/dL (1.3-3.2); Glucose 104 mg/dl (74-100); HDL Cholesterol 47 mg/dl (40-60); Potassium 3.7 mmoL/L (3.5-5.1); Sodium 139 mmol/L (136-145); Total Protein,Serum 7.1 g/dl (6.3-8.2); Triglycerides 69 mg/dl (30-150); Uric Acid 5.3 mg/dl (3.5-8.5); VLDL Cholesterol 14 mg/dL (0-40)
[2021-08-27 09:54] LABS: Direct LDL Cholesterol 99.37 mg/dL (100-129)
[2021-08-27 10:09] LABS: Basophils # 0.1 K/mm3 (0-0.2); Basophils % 1.4 % (0.1-2.0); Eosinophils # 0.1 K/mm3 (0.0-0.4); Eosinophils % 1.9 % (0.1-12.0); Hemoglobin 14.1 g/dL (14.1-18.0); Lymphocytes # 0.9 K/mm3 (0.7-4.5); Lymphocytes % 22.9 % (10-50); Mean Corpuscular HGB Conc 32.8 g/dL (31.8-35.4); Mean Corpuscular Hemoglobin 33.5 pg (27.0-31.2); Mean Corpuscular Volume 102.3 fl (80-94); Mean Platelet Volume 8.4 fl (7.4-10.4); Monocytes # 0.3 K/mm3 (0.1-1.0); Monocytes % 7.4 % (1.7-9.3); Neutrophils # 2.7 K/mm3 (1.8-7.8); Neutrophils % 66.5 % (37.0-80.0); Platelet Count 168 K/mm3 (142-424); Red Cell Distribution Width 13.8 % (11.5-17.5); White Blood Count 4.1 K/mm3 (4.8-10.8)
[2021-08-27 10:16] LABS: Prostate Specific Ag Screen 0.9 ng/ml (0.0-4.0)
== END 2021-08-27 09:35 | disposition home or self-care (01) ==
LOC: LAB 08:53 → INF 08:56
PROVIDERS: Visit Provider Family Medicine
DX: I10 Essential (primary) hypertension (principal); E78.2 Mixed hyperlipidemia; M10.9 Gout, unspecified; F52.21 Male erectile disorder; R79.89 Other specified abnormal findings of blood chemistry; Z12.5 Encounter for screening for malignant neoplasm of prostate
CPT/HCPCS: 36591; 80053; 80061; 84550; 85025; G0103; J1642

== ENCOUNTER 2021-11-21 11:22 | Outpatient (CLI) | payer MEDICARE, OTHER, MEDICAID, SELFPAY | END 2021-11-21 11:35 | disposition home or self-care (01) | LOC: INF 11:23 | PROVIDERS: PCP Family Medicine; Visit Provider Internal Medicine Hematology & Oncology | DX: Z45.2 Encounter for adjustment and management of vascular access device (principal) | CPT/HCPCS: 96523; J1642 ==

== ENCOUNTER 2022-01-28 10:14 | Outpatient (CLI) | payer MEDICARE, OTHER, MEDICAID, SELFPAY | END 2022-01-28 10:35 | disposition home or self-care (01) | LOC: INF 10:15 | PROVIDERS: PCP Family Medicine; Visit Provider Internal Medicine Hematology & Oncology | DX: Z45.2 Encounter for adjustment and management of vascular access device (principal) | CPT/HCPCS: 96523; J1642 ==

== ENCOUNTER 2022-03-31 13:31 | Emergency (ER) | payer MEDICARE, OTHER, SELFPAY ==
[2022-03-31 14:45] VITALS: BP 133/62; PULSE 93; RESP 20; TEMP 36.7; O2SAT 98; BMI 28.3
[2022-03-31 15:08] LABS: Influenza A, PCR Not Detected (NotDetected); Influenza B, PCR Not Detected (NotDetected)
[2022-03-31 15:14] VITALS: BP 133/62; PULSE 93; RESP 20; TEMP 36.7; O2SAT 98
--- NOTE | 2022-03-31 15:16 | EXP.UTC ---
Discharge Plan Disposition Patient Disposition: Home, Self-Care Condition: Good Prescriptions Prescriptions: No Action pravastatin 40 MG tablet 40 mg PO HS allopurinol 100 MG tablet 100 mg PO BID lisinopril 10 MG tablet 10 mg PO DAILY Referrals Follow up/Referrals: Constantino Magallanes MD [Primary Care Provider] - See instructions Activity Restrictions/Add. Instructions Additional Instructions/Restrictions: covid/flu swab was sent to lab, call tomorrow for results. self isolate until test results are known to be negative No sign of a bacterial infection. Likely viral. Viruses can take 7-14 days to run their course. Nasal saline and bulb syringe or nose Dayami to remove nasal drainage to help with nasal congestion. Hard to eat, drink, sleep with nasal congestion so important to keep this cleaned out. Monitor temp. Tylenol or Motrin as needed for pain or fever Encourage fluids, water, Gatorade, Powerade, Pedialyte if /toddler/child Warm salt water gargles Warm fluids Sore throat lozenges Sleep elevated Humidifier/vaporizer Follow-up immediately for new or worsening symptoms or no noticeable improvement over the next 48-72 hours. Clinical Impressions Clinical Impression: Upper respiratory infection, viral, Close exposure to COVID-19 virus Instructions Patient Instructions: DI for Viral Upper Respiratory Infection -- Adult, How to Care for Someone with COVID-19 Discharge ED Provider: Ramiro ([facility])S[facility] HPI General Stated complaint: congestion, cough Mode of Arrival: Ambulatory Source of Information: Patient Limitations: No Limitations Time Seen by Provider: 03/31/22 15:16 HEENT Symptoms (Recalled from RN notes): No Resp Symptoms (Recalled from RN notes): Yes Skin Symptoms (Recalled from RN notes): No MS Symptoms (Recalled from RN notes): No Functional Status (Recalled from RN notes): WNL History of Present Illness Provider Complaint: 71 YR OLD MALE PRESENTS FOR C/O BODY ACHES, AND DRY COUGH. BROTHER HAS COVID AND HE HELPED HIM PUT HIS CLOTHES ON Related Data Home Medications Medication Instructions Recorded Confirmed allopurinol 100 mg tablet 100 mg PO BID gout 09/24/20 03/31/22 lisinopril 10 mg tablet 10 mg PO DAILY Hypertension 09/24/20 03/31/22 pravastatin 40 mg tablet 40 mg PO HS Cholesterol 09/24/20 03/31/22 Allergies Allergy/AdvReac Type Severity Reaction Status Date / Time No Known Allergies Allergy Unverified 04/08/17 14:44 Worker's Comp Is this a Worker's Comp case?: No [facility] Disclaimer: The information contained in this section may have been updated after the patient was seen, as this information can be updated by other users. 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) Smoking Status: Former smoker alcohol intake: current substance use type: denies use current occupational status: retired Travel in the last 8 weeks: None household members: family housing: house caffeine: Yes ROS Obtained: Yes All systems reviewed & no additional complaints except as documented Constitutional Constitutional: Reports system reviewed and no additional complaints, except as documented, Reports as per HPI and Reports body ache Eyes Eyes: Reports system reviewed and no additional complaints, except as documented ENT Ears, Nose, Mouth, and Throat: Reports system reviewed and no additional complaints, except as documented, Reports as per HPI and Reports nasal congestion Cardiovascular Cardiovascular: Reports system reviewed and no additional complaints, except as documented Respiratory Respiratory: Reports system reviewed and no additional complaints, except as documented, Reports cough and Reports non-productive cough Genitourinary Male Genitourinary: Reports system reviewed and no additional complaints, except as d
[2022-03-31 17:37] LABS: Coronavirus 19, PCR Detected (NotDetected)
== END 2022-03-31 15:30 | disposition home or self-care (01) ==
PROVIDERS: Emergency Provider Nurse Practitioner Family; PCP Family Medicine
DX: U07.1 COVID-19 (principal)
CPT/HCPCS: 99212; C9803; G0463; U0003; U0005

== ENCOUNTER 2022-07-24 13:45 | Outpatient (CLI) | payer MEDICARE, OTHER, MEDICAID, SELFPAY | END 2022-07-24 14:10 | disposition home or self-care (01) | LOC: INF 13:46 | PROVIDERS: PCP Family Medicine; Visit Provider Internal Medicine Hematology & Oncology | DX: Z45.2 Encounter for adjustment and management of vascular access device (principal) | CPT/HCPCS: 96523; J1642 ==

== ENCOUNTER 2022-10-09 08:23 | Outpatient (CLI) | payer MEDICARE, OTHER, MEDICAID, SELFPAY ==
[2022-10-09 08:37] VITALS: BMI 28.7
[2022-10-09 09:11] LABS: Basophils % 0.5 % (0.1-2.0); Eosinophils # 0.2 K/mm3 (0.0-0.4); Eosinophils % 4.5 % (0.1-12.0); Hematocrit 39.4 % (42.0-52.0); Hemoglobin 13.1 g/dL (14.1-18.0); Lymphocytes # 1.1 K/mm3 (0.7-4.5); Lymphocytes % 23.5 % (10-50); Mean Corpuscular HGB Conc 33.2 g/dL (31.8-35.4); Mean Corpuscular Hemoglobin 32.6 pg (27.0-31.2); Mean Corpuscular Volume 98.3 fl (80-94); Mean Platelet Volume 8.3 fl (7.4-10.4); Monocytes # 0.4 K/mm3 (0.1-1.0); Monocytes % 7.5 % (1.7-9.3); Platelet Count 180 K/mm3 (142-424); Red Blood Count 4.01 M/mm3 (4.60-6.20); Red Cell Distribution Width 13.9 % (11.5-17.5); White Blood Count 4.7 K/mm3 (4.8-10.8)
[2022-10-09 09:17] LABS: Alanine Aminotransferase 32 U/L (12-78); Albumin Level 4.1 g/dl (3.5-5.0); Albumin/Globulin Ratio 1.6 (1.1-1.8); Alkaline Phosphatase 129 U/L (38-126); Anion Gap 14.1 mEq/L (5-15); Aspartate Amino Transferase 43 U/L (17-59); Bilirubin,Total 0.5 mg/dl (0.2-1.3); Blood Urea Nitrogen 14 mg/dl (9-20); Calcium 8.7 mg/dl (8.4-10.2); Carbon Dioxide 27 mmol/L (22.0-30.0); Chloride 105 mmol/L (98-107); Chol/HDL Ratio 3.9 (1-3.5); Cholesterol 177 mg/dl (140-200); Creatinine Clearance Estimated 82 mL/min (50-200); Estimated Glomerular Filt Rate 111 ml/min (>60); GFR (African American) 135 ML/MIN (>60); Globulin 2.6 g/dL (1.3-3.2); Glucose 94 mg/dl (74-100); HDL Cholesterol 45 mg/dl (40-60); Potassium 4.1 mmoL/L (3.5-5.1); Sodium 142 mmol/L (136-145); Total Protein,Serum 6.7 g/dl (6.3-8.2); Triglycerides 63 mg/dl (30-150); VLDL Cholesterol 13 mg/dL (0-40)
[2022-10-09 09:18] LABS: Uric Acid 5.2 mg/dl (3.5-8.5)
[2022-10-09 09:27] LABS: Direct LDL Cholesterol 99.15 mg/dL (100-129)
[2022-10-09 09:47] LABS: Prostate Specific Ag Screen 0.8 ng/ml (0.0-4.0)
== END 2022-10-09 08:55 | disposition home or self-care (01) ==
LOC: INF 08:23
PROVIDERS: Physician Assistant; PCP Family Medicine; Visit Provider Internal Medicine Hematology & Oncology
DX: Z45.2 Encounter for adjustment and management of vascular access device (principal); E79.0 Hyperuricemia without signs of inflammatory arthritis and tophaceous disease; E78.2 Mixed hyperlipidemia; Z12.5 Encounter for screening for malignant neoplasm of prostate
CPT/HCPCS: 36591; 80053; 80061; 84550; 85025; G0103; J1642

== ENCOUNTER 2023-01-17 12:52 | Outpatient (CLI) | payer MEDICARE, OTHER, MEDICAID, SELFPAY | END 2023-01-17 13:00 | disposition home or self-care (01) | LOC: INF 12:53 | PROVIDERS: PCP Family Medicine; Visit Provider Internal Medicine Hematology & Oncology | DX: Z45.2 Encounter for adjustment and management of vascular access device (principal) | CPT/HCPCS: 96523; J1642 ==

== ENCOUNTER 2023-04-18 08:11 | Outpatient (CLI) | payer MEDICARE, OTHER, MEDICAID, SELFPAY ==
[2023-04-18 08:28] VITALS: BMI 29.0
[2023-04-18] MEDS: SODIUM CHLORIDE 0.9% 10ML FLUSH SYRINGE 10 ML IV (08:30)
[2023-04-18 08:49] LABS: Chloride 106 mmol/L (98-107); Potassium 3.8 mmoL/L (3.5-5.1); Sodium 141 mmol/L (136-145)
[2023-04-18 08:52] LABS: Alanine Aminotransferase 35 U/L (12-78); Albumin Level 4.1 g/dl (3.5-5.0); Albumin/Globulin Ratio 1.6 (1.1-1.8); Alkaline Phosphatase 116 U/L (38-126); Anion Gap 12.8 mEq/L (5-15); Aspartate Amino Transferase 35 U/L (17-59); Bilirubin,Total 0.6 mg/dl (0.2-1.3); Blood Urea Nitrogen 16 mg/dl (9-20); Calcium 8.6 mg/dl (8.4-10.2); Carbon Dioxide 26 mmol/L (22.0-30.0); Cholesterol 186 mg/dl (140-200); Creatinine Clearance Estimated 82 mL/min (50-200); Estimated Glomerular Filt Rate 95 ml/min (>60); GFR (African American) 115 ML/MIN (>60); Globulin 2.6 g/dL (1.3-3.2); Glucose 103 mg/dl (74-100); Total Protein,Serum 6.7 g/dl (6.3-8.2); Triglycerides 53 mg/dl (30-150); VLDL Cholesterol 11 mg/dL (0-40)
[2023-04-18 09:03] LABS: Direct LDL Cholesterol 116.95 mg/dL (100-129)
[2023-04-18 09:59] LABS: Uric Acid 5.8 mg/dl (3.5-8.5)
[2023-04-18 12:18] LABS: Chol/HDL Ratio 4.5 (1-3.5); HDL Cholesterol 41 mg/dl (40-60)
== END 2023-04-18 08:30 | disposition home or self-care (01) ==
LOC: INF 08:13
PROVIDERS: PCP Family Medicine; Visit Provider Internal Medicine Hematology & Oncology
DX: E78.2 Mixed hyperlipidemia (principal); I10 Essential (primary) hypertension; E79.0 Hyperuricemia without signs of inflammatory arthritis and tophaceous disease
CPT/HCPCS: 36591; 80053; 80061; 84550; J1642

== ENCOUNTER 2023-08-13 10:16 | Outpatient (CLI) | payer MEDICARE, OTHER, MEDICAID, SELFPAY ==
[2023-08-13] MEDS: SODIUM CHLORIDE 0.9% 10ML FLUSH SYRINGE 10 ML IV (10:20)
== END 2023-08-13 10:25 | disposition home or self-care (01) ==
LOC: INF 10:17
PROVIDERS: PCP Family Medicine; Visit Provider Internal Medicine Hematology & Oncology
DX: C20 Malignant neoplasm of rectum (principal); Z45.2 Encounter for adjustment and management of vascular access device
CPT/HCPCS: 96523; J1642

== ENCOUNTER 2023-09-26 08:24 | Outpatient (CLI) | payer MEDICARE, OTHER, MEDICAID, SELFPAY ==
[2023-09-26 08:25] VITALS: BMI 29.2
[2023-09-26] MEDS: SODIUM CHLORIDE 0.9% 10ML FLUSH SYRINGE 10 ML IV (08:35)
[2023-09-26 09:21] LABS: Chloride 107 mmol/L (98-107)
[2023-09-26 09:22] LABS: Potassium 3.9 mmoL/L (3.5-5.1); Sodium 139 mmol/L (136-145)
[2023-09-26 09:24] LABS: Alanine Aminotransferase 35 U/L (12-78); Alkaline Phosphatase 107 U/L (38-126); Aspartate Amino Transferase 35 U/L (17-59); Bilirubin,Total 0.5 mg/dl (0.2-1.3); Blood Urea Nitrogen 16 mg/dl (9-20); Creatinine Clearance Estimated 82 mL/min (50-200); Estimated Glomerular Filt Rate 95 ml/min (>60); GFR (African American) 115 ML/MIN (>60)
[2023-09-26 09:25] LABS: Albumin Level 4.1 g/dl (3.5-5.0); Albumin/Globulin Ratio 1.5 (1.1-1.8); Anion Gap 10.9 mEq/L (5-15); Carbon Dioxide 25 mmol/L (22.0-30.0); Chol/HDL Ratio 4.7 (1-3.5); Cholesterol 187 mg/dl (140-200); Globulin 2.8 g/dL (1.3-3.2); Glucose 100 mg/dl (74-100); HDL Cholesterol 40 mg/dl (40-60); Total Protein,Serum 6.9 g/dl (6.3-8.2); Triglycerides 69 mg/dl (30-150); VLDL Cholesterol 14 mg/dL (0-40)
[2023-09-26 09:36] LABS: Direct LDL Cholesterol 114.61 mg/dL (100-129)
[2023-09-26 09:39] LABS: Uric Acid 5.3 mg/dl (3.5-8.5)
== END 2023-09-26 08:45 | disposition home or self-care (01) ==
LOC: INF 08:25
PROVIDERS: PCP Family Medicine; Visit Provider Family Medicine
DX: E78.2 Mixed hyperlipidemia (principal); E79.0 Hyperuricemia without signs of inflammatory arthritis and tophaceous disease; I10 Essential (primary) hypertension
CPT/HCPCS: 36591; 80053; 80061; 84550; J1642

== ENCOUNTER 2023-10-31 13:49 | Outpatient (CLI) | payer MEDICARE, OTHER, MEDICAID, SELFPAY ==
[2023-10-31] MEDS: SODIUM CHLORIDE 0.9% 10ML FLUSH SYRINGE 10 ML IV (14:50)
== END 2023-10-31 14:15 | disposition home or self-care (01) ==
LOC: INF 13:50
PROVIDERS: PCP Family Medicine; Visit Provider Internal Medicine Hematology & Oncology
DX: C20 Malignant neoplasm of rectum (principal)
CPT/HCPCS: 96523; J1642

== ENCOUNTER 2024-01-15 15:41 | Outpatient (CLI) | payer MEDICARE, OTHER, MEDICAID, SELFPAY ==
[2024-01-15] MEDS: SODIUM CHLORIDE 0.9% 10ML FLUSH SYRINGE 10 ML IV (16:00)
== END 2024-01-15 16:00 | disposition home or self-care (01) ==
LOC: INF 15:44
PROVIDERS: PCP Family Medicine; Visit Provider Internal Medicine Hematology & Oncology
DX: Z45.2 Encounter for adjustment and management of vascular access device (principal)
CPT/HCPCS: 96523; J1642

== ENCOUNTER 2024-03-05 10:19 | Outpatient (CLI) | payer MEDICARE, OTHER, MEDICAID, SELFPAY ==
[2024-03-05] MEDS: SODIUM CHLORIDE 0.9% 10ML FLUSH SYRINGE 10 ML IV (10:32)
== END 2024-03-05 10:35 | disposition home or self-care (01) ==
LOC: INF 10:20
PROVIDERS: PCP Family Medicine; Visit Provider Internal Medicine Hematology & Oncology
DX: Z45.2 Encounter for adjustment and management of vascular access device (principal)
CPT/HCPCS: 96523; J1642

== ENCOUNTER 2024-04-22 13:40 | Outpatient (CLI) | payer MEDICARE, OTHER, MEDICAID, SELFPAY ==
[2024-04-22] MEDS: SODIUM CHLORIDE 0.9% 10ML FLUSH SYRINGE 10 ML IV (13:50)
== END 2024-04-22 13:50 | disposition home or self-care (01) ==
LOC: INF 13:42
PROVIDERS: PCP Family Medicine; Visit Provider Internal Medicine Hematology & Oncology
DX: Z45.2 Encounter for adjustment and management of vascular access device (principal)
CPT/HCPCS: 96523; J1642

== ENCOUNTER 2024-06-08 13:02 | Outpatient (CLI) | payer MEDICARE, OTHER, MEDICAID, SELFPAY ==
[2024-06-08] MEDS: SODIUM CHLORIDE 0.9% 10ML FLUSH SYRINGE 10 ML IV (13:33)
== END 2024-06-08 13:15 | disposition home or self-care (01) ==
LOC: INF 13:04
PROVIDERS: PCP Family Medicine; Visit Provider Internal Medicine Hematology & Oncology
DX: Z45.2 Encounter for adjustment and management of vascular access device (principal)
CPT/HCPCS: 96523; J1642

== ENCOUNTER 2024-08-06 08:28 | Outpatient (CLI) | payer MEDICARE, OTHER, MEDICAID, SELFPAY ==
[2024-08-06 08:41] VITALS: BMI 29.2
[2024-08-06] MEDS: SODIUM CHLORIDE 0.9% 10ML FLUSH SYRINGE 10 ML IV (08:50)
[2024-08-06 08:55] VITALS: BP 135/76; PULSE 80; RESP 18; TEMP 36.7; O2SAT 100
[2024-08-06 09:01] LABS: Albumin Level 4.2 g/dl (3.5-5.0); Chloride 107 mmol/L (98-107)
[2024-08-06 09:02] LABS: Potassium 4.1 mmoL/L (3.5-5.1); Sodium 140 mmol/L (136-145)
[2024-08-06 09:04] LABS: Alanine Aminotransferase 30 U/L (12-78); Anion Gap 10.1 mEq/L (5-15); Aspartate Amino Transferase 37 U/L (17-59); Blood Urea Nitrogen 14 mg/dl (9-20); Carbon Dioxide 27 mmol/L (22.0-30.0); Creatinine Clearance Estimated 81 mL/min (50-200); Estimated Glomerular Filt Rate 111 ml/min (>60); GFR (African American) 134 ML/MIN (>60)
[2024-08-06 09:05] LABS: Albumin/Globulin Ratio 1.5 (1.1-1.8); Alkaline Phosphatase 87 U/L (38-126); Bilirubin,Total 0.9 mg/dl (0.2-1.3); Calcium 8.7 mg/dl (8.4-10.2); Chol/HDL Ratio 3.6 (1-3.5); Cholesterol 174 mg/dl (140-200); Globulin 2.8 g/dL (1.3-3.2); Glucose 100 mg/dl (74-100); HDL Cholesterol 49 mg/dl (40-60); Triglycerides 45 mg/dl (30-150); VLDL Cholesterol 9 mg/dL (0-40)
[2024-08-06 09:16] LABS: Direct LDL Cholesterol 99.31 mg/dL (100-129)
[2024-08-06 09:33] LABS: Uric Acid 6.2 mg/dl (3.5-8.5)
[2024-08-06 10:04] LABS: Prostate Specific Ag Screen 0.7 ng/ml (0.0-4.0)
== END 2024-08-06 08:55 | disposition home or self-care (01) ==
LOC: INF 08:31
PROVIDERS: PCP Family Medicine; Visit Provider Family Medicine
DX: E78.2 Mixed hyperlipidemia (principal); Z12.5 Encounter for screening for malignant neoplasm of prostate
CPT/HCPCS: 36591; 80053; 80061; 84550; G0103; J1642

== ENCOUNTER 2024-10-13 08:50 | Outpatient (CLI) | payer MEDICARE, OTHER, MEDICAID, SELFPAY ==
--- OUTSIDE RECORDS SUMMARY | 2024-08-30 06:46 | XMS_ITS | Encounter Summary ---
Author Organization [facility] Address [address] [place] [address] Care Team Providers Care Chief Recordist Name Role Phone Constantino Barnes Primary Care Provider Padmini Nava MD Unavailable [phone] Vinny Sargent MD Unavailable [phone] Mirlande Dean APRN Unavailable [phone] Reason for Referral * Imaging (Routine) - Closed Specialty Diagnoses / Procedures Referred By Contac t Referred To Contact Gastroenterology Diagnoses Rectal cancer (CMS/HCC) Procedures Colonoscopy Shamar Gomez MD [address] [address] Phone: tel: fax: Referral ID Status Reason Start Date Expiration Date V isits Requested Visits Authorized [id number] Closed Specialty Services Required 06/29/2024 12/29/2025 1 1 Reason for Visit * Imaging (Routine) - Closed Specialty Diagnoses / Procedures Referred By Contac t Referred To Contact Gastroenterology Diagnoses Rectal cancer ([facility]/HCC) Procedures Colonoscopy Shamar Gomez MD [address] [address] Phone: tel: fax: Referral ID Status Reason Start Date Expiration Date V isits Requested Visits Authorized [id number] Closed Specialty Services Required 06/29/2024 12/29/2025 1 1 Encounter Details Date Type Department Care Team (Latest Contact Info) Description 08/30/2024 6:46 AM EDT - 08/30/2024 11:59 PM EDT Hospital Encounter [facility] [address] [place] [address] Shamar Gomez MD [address] [place] [address] Laurel Santo RN Rectal cancer ([facility]) Discharge Disposition: Home or Self Care Social History Tobacco Use Types Packs/Day Years Used Date Smoking Tobacco: Former Cigarettes 2 20 1 967 - 1986 Passive Smoke Exposure: Past Smokeless Tobacco: Current Chew Alcohol Use Standard Drinks/Week Comments Not Currently 0 (1 standard drink = 0.6 oz pur e alcohol) quit 09/2020 PHQ-2 Answer Date Recorded Patient Health Questionnaire-2 Score 0 12/02/2023 PHQ-2A Answer Date Recorded Depression Risk 0 12/03/2022 Sex and Gender Information Value Date Recorded Sex Assigned at Male 10/11/2020 1:12 PM EDT Legal Sex Male 10:05 AM EDT Gender Identity Male 10/11/2020 1:12 PM EDT Sexual Orientation Straight 10/11/2020 1: 14 PM EDT documented as of this encounter Last Filed Vital Signs Vital Sign Reading Time Taken Comments Blood Pressure 113/85 08/30/2024 8:45 AM EDT Pulse 74 08/30/2024 8:45 AM EDT Temperature 36.3 C (97.4 F) 08/30/2024 8:27 AM EDT Respiratory Rate 16 08/30/2024 8:45 AM EDT Oxygen Saturation 96% 08/30/2024 8:45 AM EDT Inhaled Oxygen Concentration - - Weight 91.9 kg (202 lb 9.6 oz) 08/30/2024 7:17 A M EDT Height 167.6 cm (5' 6 ) 08/30/2024 7:16 AM EDT Body Mass Index 32.7 08/30/2024 7:16 AM EDT documented in this encounter Medications at Time of Discharge allopurinol (Zyloprim) 100 MG tablet Take 1 tablet by mouth 2 times a day. lisinopril 10 MG tablet Take 1 tablet by mouth once daily 90 tablet 3 01/28/2022 documented as of this encounter Miscellaneous Notes * Suman De Leon - Ning-Emili Ashley - 08/30/2024 7:46 AM EDT Images from the original note were not included. [id number] Anesthesia: General Anesthesia You?re due to have surgery. During surgery, you?ll be given medicine called anesthesia or anesthetic. This will keep you comfortable and pain-free. Your anesthesia provider will use general anesthesia . You are watched continuously during your procedure by your anesthesia provider. What is general anesthesia? General anesthesia puts you into a state like deep sleep. It goes into the bloodstream (IV anesthetics), into the lungs (gas anesthetics),or both. You feel nothing during the procedure. You won't remember it either. During the procedure, the anesthesia provider monitors you continuously. They trackyour heart rate and rhythm, blood pressure, breathing, and blood oxygen. ?? IV anesthetics. IV anesthetics are given through an IV (intravenous) line in your arm. They?re often given first. This is so you're asleep before a gas anesthetic is started. Some kinds of IV anesthetics ease pain. Others relax you. Your healthcare provider will decide which kind is best in yourcase. ?? Gas anesthetics. Gas anesthetics are breathed into the lungs. They're often used to keep you asleep. They can be given through a face mask. Or they can be given through a tube placed in your voicebox (larynx) or breathing tube (trachea). o Face mask. Your anesthesia provider will most likely place the face mask over your nose and mouthwhile you?re still awake. You?ll breathe oxygen through the mask as your IV anesthetic is started. Gas anesthetic may be added through the mask. o Tube in the larynx or trachea. The tube will be inserted into your throat after you?re asleep. Anesthesia tools and medicines You will likely have: ?? IV anesthetics. These are put into an IV line into your bloodstream. ?? Gas anesthetics. You breathe these anesthetics into your lungs. Then they pass into your bloodstream. ?? Pulse oximeter. This is a small clip that's attached to the end of your finger. It measures yourblood oxygen level. ?? Electrocardiography leads (electrodes). These are small sticky pads that are placed on your chest. They record your heart rate and rhythm. ?? Blood pressure cuff. This reads your blood pressure. Risks and possible complications General anesthesia has some risks. These include: ?? Breathing problems ?? Upset stomach (nausea) and vomiting ?? Sore throat or hoarseness (usually temporary) ?? Allergic reaction to the anesthetic ?? Irregular heartbeat (rare) ?? Cardiac arrest (rare) Anesthesia safety ?? Follow any directions you're given for not eating or drinking before your procedure. ?? Tell your healthcare provider what medicines you take. This includes prescription and bgwj-btr-ttdftwk medicines. It also includes vitamins, herbs, and other supplements. You'll be asked when those were last taken. ?? Have a trusted adult drive you home after the procedure. ?? For the first 24 hours after your surgery: o Don't drive or use heavy equipment. o Don't make important decisions or sign legal documents. If important decisions or signing legal documents is necessary during the first 24 hours after surgery, have a trusted family member or spouse act on your behalf. o Don't drink alcohol. o Have a responsible adult stay with you. They can watch for problems and help keep you safe. Last Reviewed Date: 2023 00:00:00 ?? [id number] [employer]. All rights reserved. This information is not intended as a substitute for professional medical care. Always follow your healthcare professional's instructions. * Suman De Leon - Emili Breaux - 08/30/2024 7:46 AM EDT Images from the original note were not included. [id number] Endoscopy Unit: Caring for Yourself after a Colonoscopy What precautions do I need to take after my procedure? You will get a medicine that makes you sleep during treatment. It may affect you for the next 24 hours. ?? Do not drive or go home alone. Someone must be with you until you get home. ?? For 24 hours, do not make legal decisions, drive, or use dangerous equipment. ?? You may continue taking your home medicines, unless your doctor tells you otherwise. When can I eat or drink? You may eat as you normally would. Start with a small amount of bland foods. Add other foods as tolerated. Spicy or greasy foods may cause nausea. How active can I be? You should move around as you are able. Do your normal activities if you feel you can. Sexual activity is fine, unless your doctor tells you otherwise. How do I find out my biopsy results? If you had a biopsy, it may take 7-10 days for results. These results will be available in the patient portal, [facility]. Or you can call the doctor who ordered your procedure. What should I watch out for? ?? Gas: You may get air in your belly during treatment. This could cause gas or a feeling of fullness. This is normal. If you have hemorrhoids, you may have some rectal discomfort. ?? Blood: Please call if you have a polyp removed during your procedure and see 1 tablespoon or more of blood on your stool. Keep checking this for 1 month after your procedure. When should I call the doctor? Call 911 right away or go to the nearest emergency department if you have any of these: ?? Difficulty breathing ?? Severe pain in the throat ?? Severe pain in the chest or belly ?? Vomiting that does not go away ?? Fever of 101??F or higher ?? More than 1 tablespoon of rectal bleeding ?? Redness or tenderness of the IV site that lasts longer than 48 hours ?? Any other symptoms that concern you These may be related to a complication and need medical attention. If you do not tell your doctor, the problem may get worse. Our contact information: For the Endoscopy Provider, call and ask for the Endoscopy Fellow on-call. * H&P - Shamar Gomez MD - 08/30/2024 7:30 AM EDT [facility] Colon and Rectal Surgery Endoscopy H&P Mr. Willam Hong is a 74 y.o. male that presents to [facility] for endoscopic evaluation. Past medical history and past surgical history are pertinent for the followin. Rectal cancer (CMS/HCC) Chest: CTAB. CV: RRR. Current plan: Colonoscopy. See above H&P. All risks, benefits, goals, and alternatives have been discussed with the patient. All questions have been answered. We have agreed to proceed with plan as above. * Kaelyn Craven RN - 08/30/2024 7:01 AM EDT Images from the original note were not included. [id number] Anesthesia: General Anesthesia You?re due to have surgery. During surgery, you?ll be given medicine called anesthesia or anesthetic. This will keep you comfortable and pain-free. Your anesthesia provider will use general anesthesia . You are watched continuously during your procedure by your anesthesia provider. What is general anesthesia? General anesthesia puts you into a state like deep sleep. It goes into the bloodstream (IV anesthetics), into the lungs (gas anesthetics),or both. You feel nothing during the procedure. You won't remember it either. During the procedure, the anesthesia provider monitors you continuously. They trackyour heart rate and rhythm, blood pressure, breathing, and blood oxygen. ?? IV anesthetics. IV anesthetics are given through an IV (intravenous) line in your arm. They?re often given first. This is so you're asleep before a gas anesthetic is started. Some kinds of IV anesthetics ease pain. Others relax you. Your healthcare provider will decide which kind is best in yourcase. ?? Gas anesthetics. Gas anesthetics are breathed into the lungs. They're often used to keep you asleep. They can be given through a face mask. Or they can be given through a tube placed in your voicebox (larynx) or breathing tube (trachea). o Face mask. Your anesthesia provider will most likely place the face mask over your nose and mouthwhile you?re still awake. You?ll breathe oxygen through the mask as your IV anesthetic is started. Gas anesthetic may be added through the mask. o Tube in the larynx or trachea. The tube will be inserted into your throat after you?re asleep. Anesthesia tools and medicines You will likely have: ?? IV anesthetics. These are put into an IV line into your bloodstream. ?? Gas anesthetics. You breathe these anesthetics into your lungs. Then they pass into your bloodstream. ?? Pulse oximeter. This is a small clip that's attached to the end of your finger. It measures yourblood oxygen level. ?? Electrocardiography leads (electrodes). These are small sticky pads that are placed on your chest. They record your heart rate and rhythm. ?? Blood pressure cuff. This reads your blood pressure. Risks and possible complications General anesthesia has some risks. These include: ?? Breathing problems ?? Upset stomach (nausea) and vomiting ?? Sore throat or hoarseness (usually temporary) ?? Allergic reaction to the anesthetic ?? Irregular heartbeat (rare) ?? Cardiac arrest (rare) Anesthesia safety ?? Follow any directions you're given for not eating or drinking before your procedure. ?? Tell your healthcare provider what medicines you take. This includes prescription and gcle-hsi-rjnkbog medicines. It also includes vitamins, herbs, and other supplements. You'll be asked when those were last taken. ?? Have a trusted adult drive you home after the procedure. ?? For the first 24 hours after your surgery: o Don't drive or use heavy equipment. o Don't make important decisions or sign legal documents. If important decisions or signing legal documents is necessary during the first 24 hours after surgery, have a trusted family member or spouse act on your behalf. o Don't drink alcohol. o Have a responsible adult stay with you. They can watch for problems and help keep you safe. Last Reviewed Date: 2023 00:00:00 ?? [id number] [employer]. All rights reserved. This information is not intended as a substitute for professional medical care. Always follow your healthcare professional's instructions. * Suman MaddoxKATRINA - Kaelyn Dolan RN - 08/30/2024 7:01 AM EDT Images from the original note were not included. [id number] Endoscopy Unit: Caring for Yourself after a Colonoscopy What precautions do I need to take after my procedure? You will get a medicine that makes you sleep during treatment. It may affect you for the next 24 hours. ?? Do not drive or go home alone. Someone must be with you until you get home. ?? For 24 hours, do not make legal decisions, drive, or use dangerous equipment. ?? You may continue taking your home medicines, unless your doctor tells you otherwise. When can I eat or drink? You may eat as you normally would. Start with a small amount of bland foods. Add other foods as tolerated. Spicy or greasy foods may cause nausea. How active can I be? You should move around as you are able. Do your normal activities if you feel you can. Sexual activity is fine, unless your doctor tells you otherwise. How do I find out my biopsy results? If you had a biopsy, it may take 7-10 days for results. These results will be available in the patient portal, [facility]. Or you can call the doctor who ordered your procedure. What should I watch out for? ?? Gas: You may get air in your belly during treatment. This could cause gas or a feeling of fullness. This is normal. If you have hemorrhoids, you may have some rectal discomfort. ?? Blood: Please call if you have a polyp removed during your procedure and see 1 tablespoon or more of blood on your stool. Keep checking this for 1 month after your procedure. When should I call the doctor? Call 911 right away or go to the nearest emergency department if you have any of these: ?? Difficulty breathing ?? Severe pain in the throat ?? Severe pain in the chest or belly ?? Vomiting that does not go away ?? Fever of 101??F or higher ?? More than 1 tablespoon of rectal bleeding ?? Redness or tenderness of the IV site that lasts longer than 48 hours ?? Any other symptoms that concern you These may be related to a complication and need medical attention. If you do not tell your doctor, the problem may get worse. Our contact information: For the Endoscopy Provider, call and ask for the Endoscopy Fellow on-call. documented in this encounter Plan of Treatment Upcoming Encounters Date Type Department Care Team (Late st Contact Info) Description 01/04/2025 7:00 AM EDT Appointment [facility] [address] [place] [phone] 01/04/2025 9:20 AM EDT Clinical Support [facility] [address] [place] [address] 01/04/2025 9:30 AM EDT Office Visit [facility] [address] [place] [phone] Mirlande Dean, ADVANCED DEVELOPER [address] [facility] [address] [facility] [address] [place] [phone] 01/04/2025 10:30 AM EDT Office Visit [facility] Multidisciplinary Oncology Clinic [address] [place] [phone] Shamar Gomez MD [address] [facility] [address] [place] [phone] documented as of this encounter Goals Goal Patient Goal Type Associated Problems Recent Progress Patient-Stated? Author Autogenerat ed Goal Care Plan Autogenerated Problem Floridalma [place] documented as of this encounter Procedures Procedure Name Priority Date/Time Associated Diagnosis Comments COLONOSCOPY Routine 08/30/2024 8:25 AM EDT Rectal cancer ([facility]) documented in this encounter Results * Colonoscopy (08/30/2024 8:25 AM EDT) Anatomical Region Laterality Modality Endoscopy Narrative 08/30/2024 8:24 AM EDT Table formatting from the original result was not included. Impression: Normal. Mild scarred mucosa in the rectum Surveillance colonoscopy completed in the setting of rectal cancer with complete response after total neoadjuvant therapy. Scattered diverticulosis was noted throughout the colon although mild in appearance. The colon was normal. No polyps, masses, or lesions. One area of the sigmoid colon had a relatively large amount of semi solid stool yet this could be evacuated and no large polyps or masses were identified. Previous rectal cancer site was noted as a scar in the rectum. Healthy-appearing. No evidence of intraluminal recurrence. Recommend repeat colonoscopy in 3 years. Continue occasional flexible sigmoidoscopy. Post Procedure Diagnosis None Recommendations Repeat colonoscopy in 3 years, due: 08/30/2027 Indication Order Indication: Rectal cancer (CMS/HCC) Medications See anesthesia record for anesthesia administered medications. Staff Staff Role Laurel Santo RN Endo Nurse Shamar Gomez MD Proceduralist Ariadne Marley Endo Bottom Cementer Pepe William MD Anesthesiologist Mayra Garcias CRNA, MICHAEL SANCHEZ Preprocedure A history and physical has been performed, and patient medication allergies have been reviewed. The patient's tolerance of previous anesthesia has been reviewed. The risks and benefits of the procedure and the sedation options and risks were discussed with the patient. All questions were answered and informed consent obtained. Details of the Procedure The patient underwent monitored anesthesia care, which was administered by an anesthesia professional. The patient's blood pressure, heart rate, level of consciousness, respirations and oxygen were monitored throughout the procedure. A digital rectal exam was performed. A perianal exam was performed. The scope was introduced through the anus and advanced to the cecum. Retroflexion was performed in the rectum. The quality of bowel preparation was evaluated using the [place] Bowel Preparation Scale with scores of: right colon = 2, transverse colon = 2, left colon = 2. The total BBPS score was 6. Bowel prep was adequate. The patient experienced no blood loss. The procedure was not difficult. The patient tolerated the procedure well. There were no apparent adverse events. Attestation I personally performed the entire procedure Events Procedure Events Event Event Time ENDO SCOPE IN TIME 08/30/2024 8:13 AM ENDO CECUM REACHED 08/30/2024 8:15 AM ENDO SCOPE OUT TIME 08/30/2024 8:22 AM Specimens No specimens were documented in this log. Findings All observed locations appeared normal. Mild, localized scarred mucosa in the rectum us Shamar Gomez MD GI PROCEDURE ORDERABLES Final Result documented in this encounter Visit Diagnoses Diagnosis Rectal cancer (CMS/HCC) Malignant neoplasm of rectum documented in this encounter Administered Medications Inactive Administered Medications - up to 3 most recent administrations Medication Order MAR Action Action Date Dose Rate Site heparin flush (porcine) 100 UNIT/ML injection 500 Units 500 Units, Intracatheter, As needed, Starting on 08/30/24 at 0848, Until Fri08/31/24 at 0248, Routine, Recovery(Phase II-Outpatient)/On Unit(Inpatient), line care Given 08/30/2024 8:53 AM EDT 500 Units documented in this encounter Additional Health Concerns Active Problems Noted Date Diagnosed Date Autogenerated Problem 06/29/2024 Assessment Noted Time A fall risk assessment has been complete d for the patient 06/29/2024 9:54 AM EDT A Body Mass Index follow-up plan has been documented for the patient 06/29/2024 12:51 PM EDT documented as of this encounter Care Teams Chief Recordist Relationship Specialty Start Date End Date Constantino Barnes PCP - General 10/03/20 Padmini Ramirez MD [address] [facility] [address] [place] [phone] Consulting Physician Medical Oncology 02/06/21 Vinny Sargent MD [address] [place] [phone] Radiation Oncologist Radiation Oncology 02/19/21 Mirlande Dean APRN [address] [place] [address] Nurse Practitioner Internal Medicine 04/10/21 documented as of this encounter
--- OUTSIDE RECORDS SUMMARY | 2024-08-30 08:05 | XMS_ITS | Encounter Summary ---
Author Organization [facility] Address [address] [place] [address] Care Team Providers Care Geophysicist Name Role Phone Constantino Barnes Primary Care Provider Padmini Nava MD Unavailable [phone] Vinny Sargent MD Unavailable Mirlande Dean APRN Unavailable Encounter Details Date Type Department Care Team (Late st Contact Info) Description 08/30/2024 8:05 AM EDT Anesthesia Event [facility] [address] [place] [address] Pepe William MD [address] [place] [address] Angelique Mcarthur MD [address] [place], [place] [phone] Anesthesia Record Procedure Summary Procedure Name Responsible Anesthesiologist Anesthesia Start Time Anesthesia Stop Time COLONOSCOPY Pepe William MD 08/30/24 0805 08/30/24 082 8 Events Date Time Event Comment 08/30/2024 0712 0805 An Start The patient was reevaluated immediately before sedation and remains eligible for anesthesia plan. 0806 In Room 0806 An Start Data 0811 Anesthesia Ready 0812 Proc Start 0823 Proc Fin 0825 an stop data 0825 Out of Room 0827 Handoff to Receiving I compl eted my handoff to the receiving clinician during which we: 1. Identified the patient 2. Identified the responsible provider 3. Reviewed the pertinent medical history 4. Discussed the surgical course 5. Reviewed intra-op anesthesia management and issues during anesthesia 6. Set expectations for post-procedure period 7. Allowed opportunity for questions and acknowledgement of understanding. 0828 An Stop Meds Name Total propofol (Diprivan) injection 10 mg/mL 2 00 mg lactated Ringer's infusion 100 mL * Agents No agents on file. * Blood No blood administrations on file. Lines, Drains, and Airways Type Details Placement Removal Single Lumen Implantable Port Yes; Yes; Left; Chest; 08/30/24; 0853 06/11/22 0908 by 08/30/24 0853 by Salina Jaime RN documented in this encounter Social History Tobacco Use Types Packs/Day Years Used Date Smoking Tobacco: Former Cigarettes 2 20 1 7 - 1986 Passive Smoke Exposure: Past Smokeless [...] PM EDT documented as of this encounter Miscellaneous Notes * Anesthesia Postprocedure Evaluation - Mayra Garcias CRNA, DNP - 08/30/2024 8:34 AM EDT Patient: Willam Hong Anesthesia Type: MAC Vitals Value Taken Time BP 101/60 08/30/24 08:34 Temp 36.3 ??C (97.4 ??F) 08/30/24 08:27 Pulse 69 08/30/24 08:29 Resp 16 08/30/24 08:29 SpO2 97 % 08/30/24 08:29 Vitals shown include unfiled device data. Anesthesia Post Evaluation Patient location during evaluation: PACU Patient participation: complete - patient participated Level of consciousness: awake Pain management: adequate (pain score 0-3) Airway patency: natural airway Cardiovascular status: acceptable and hemodynamically stable Respiratory status: acceptable and blow-by oxygen Hydration status: acceptable Nausea/Vomiting: No No notable events documented. * Anesthesia Preprocedure Evaluation - Angelique Mcarthur MD - 08/30/2024 6:47 AM EDT Images from the original note were not included. Patient: Willam Hong Procedure Information Date/Time: 08/30/24729 Scheduled providers: Shamar Gomez MD Procedure: COLONOSCOPY Location: [facility] Endoscopy Willam Hong is a 74-year-old male with a PMHx of HTN, HLD, Former smoker ( 40 pack years) and Rectal cancer s/p total neoadjuvant therapy followed by complete response. Patient here today for surveillance colonoscopy. Patient able to perform >4 METs. Appropriately NPO. Last Flexsig 11/2023 without issues with MAC. GA in past without issues. Relevant Problems Cardio (+) HTN (hypertension) (+) High cholesterol GI (+) Rectal cancer (CMS/HCC) ROS Anesthesia: Date of last anesthetic: Last 11/2023 history of previous anesthesia and history of anesthetic complications. Cardiovascular: hypertension: is well controlled. Exercise tolerance is 2 flights of stairs. Respiratory: no asthma: no COPD: Has not had COVID in the last 30 days. HEENT: missing teeth. Neurological: no seizures: Did not have a cerebrovascular accident. Hematological/Lymphatic: history of chemotherapy without cardiopulmonary complications. history of radiation without cardiopulmonary complications. Endocrine/Metabolic: Does not have thyroid disorder. Clinical information reviewed: NPO Status Physical Exam Airway Mallampati: II Mouth opening: normal TM distance: >3 FB Neck ROM: full Cardiovascular Rhythm: regular Rate: normal Dental Pulmonary Breath sounds clear to auscultation Neurological Skin - normal exam Musculoskeletal - normal exam Extremities Other findings: Top partials Anesthesia Plan ASA 3 Plan was reviewed with: attending Anesthesia technique(s) discussed with the patient/family: MAC and general Anesthesia plan agreed upon was: MAC Anesthetic plan and risks discussed with patient. Use of blood products discussed with patient who consented to blood products. Additional Equipment Requests Cosigned by Pepe William MD at 08/30/2024 7:17 AM EDT Associated attestation - Pepe William MD - 08/30/2024 7:17 AM EDT I agree with the findings and care plan documented in the preprocedure evaluation note. documented in this encounter Plan of Treatment Upcoming Encounters Date Type Department Care Team (Late st Contact Info) Description 01/04/2025 7:00 AM EDT Appointment [facility] [address] [place] [address] 01/04/2025 9:20 AM EDT Clinical Support [facility] Multidisciplinary Oncology Clinic [address] [place] [address] 01/04/2025 9:30 AM EDT Office Visit [facility] Multidisciplinary Oncology Clinic [address] [place] [address] Mirlande Dean, COMMUNICATIONS PROFESSIONAL 800 [facility] Delores Andrews [facility] [address] [place] [address] 01/04/2025 10:30 AM EDT Office Visit [facility] Multidisciplinary Oncology Clinic [address] [place] [address] Shamar Gomez MD [address] [facility] [address] [place] [address] documented as of this encounter Goals Goal Patient Goal Type Associated Problems Recent Progress Patient-Stated? Author Autogenerat ed Goal Care Plan Autogenerated Problem Marguerite Mcghee Floridalma Kat documented as of this encounter Visit Diagnoses Not on filedocumented in this encounter Administered Medications Inactive Administered Medications - up to 3 most recent administrations Medication Order MAR Action Action Date Dose Rate Site lactated Ringer's infusion Intravenous, Continuous PRN, Starting on Fri08/30/24 at 0805, Until Fri08/30/24 at 0828, Routine New Bag 08/30/2024 8:05 AM EDT propofol (Diprivan) injection Intravenous, As needed, Starting on Fri08/30/24 at 0809, Until Fri08/30/24 at 0828, Routine, Anesthesia Intraprocedure Given 08/30/2024 8:18 AM EDT 50 mg Given 08/30/2024 8:13 AM EDT 50 mg Given 08/30/2024 8:11 AM EDT 50 mg documented in this encounter Additional Health Concerns Active Problems Noted Date Diagnosed Date Autogenerated Problem 06/29/2024 Assessment Noted Time A fall risk assessment has been complete d for the patient 06/29/2024 9:54 AM EDT A Body Mass Index follow-up plan has been documented for the patient 06/29/2024 12:51 PM EDT documented as of this encounter Care Teams Geophysicist Relationship Specialty Start Date End Date Constantino Barnes PCP - General 10/03/20 Padmini Ramirez MD [address] [facility] [address] [place] [address] Consulting Physician Medical Oncology 02/06/21 Vinny Sargent MD [address] [facility] [address] [place] [address] Radiation Oncologist Radiation Oncology 02/19/21 Mirlande Dean APRN [address] [facility] [address] [place] [address] Nurse Practitioner Internal Medicine 04/10/21 documented as of this encounter
--- OUTSIDE RECORDS SUMMARY | 2024-10-13 08:54 | XMS_ITS ---
Author Organization Unknown TREATMENT PLAN Planned Care Start Date Provider Encounter for Check-up [id number] [facility]
--- OUTSIDE RECORDS SUMMARY | 2024-10-13 08:54 | XMS_ITS | Encounter Summary ---
Author Organization [facility] Address [address] [place] [address] Care Team Providers Care Patient Day Coordinator Name Role Phone Constantino Barnes Primary Care Provider Padmini Nava MD Unavailable [phone] Vinny Sargent MD Unavailable [phone] Mirlande Dean APRN Unavailable [phone] Encounter Details Date Type Department Care Team (Latest Contact Info) Description 08/30/2024 Travel Social History Tobacco Use Types Packs/Day Years Used Date Smoking Tobacco: Former Cigarettes 2 20 1 967 - 1987 Passive Smoke Exposure: Past Smokeless Tobacco: Current [...] PM EDT documented as of this encounter Plan of Treatment Upcoming Encounters Date Type Department Care Team (Late st Contact Info) Description 01/04/2025 7:00 AM EDT Appointment [facility]iology [address] [place] [address] 01/04/2025 9:20 AM EDT Clinical Support [facility] Multidisciplinary Oncology Clinic [address] [place] [address] 01/04/2025 9:30 AM EDT Office Visit [facility] Multidisciplinary Oncology Clinic [address] [place] [address] Mirlande Dean, TECHNICAL DESIGNER 800 [facility] [address] [facility] [address] [place] [address] 01/04/2025 10:30 AM EDT Office Visit [facility] Multidisciplinary Oncology Clinic [address] [place] [address] Shamar Gomez MD [address] [facility] [address] [place] [address] documented as of this encounter Goals Goal Patient Goal Type Associated Problems Recent Progress Patient-Stated? Author Autogenerat ed Goal Care Plan Autogenerated Problem Floridalma [place] documented as of this encounter Visit Diagnoses Not on filedocumented in this encounter Additional Health Concerns Active Problems Noted Date Diagnosed Date Autogenerated Problem 06/29/2024 Assessment Noted Time A fall risk assessment has been complete d for the patient 06/29/2024 9:54 AM EDT A Body Mass Index follow-up plan has been documented for the patient 06/29/2024 12:51 PM EDT documented as of this encounter Care Teams Patient Day Coordinator Relationship Specialty Start Date End Date Constantino Barnes PCP - General 10/03/20 Padmini Ramirez MD 800 [facility] Delores Andrews [facility] [address] [place] [address] Consulting Physician Medical Oncology 02/06/21 Vinny Sargent MD 800 [facility] [address] [place] [address] Radiation Oncologist Radiation Oncology 02/19/21 Mirlande Dean APRN 800 [facility] Delores Andrews [address] [phone] Nurse Practitioner Internal Medicine 04/10/21 documented as of this encounter
--- OUTSIDE RECORDS SUMMARY | 2024-10-13 08:54 | XMS_ITS ---
Author Organization [facility] Address [address] [place] [address] Care Team Providers Care Cloth Dyeing Range Tender Name Role Phone Constantino Barnes Primary Care Provider Padmini Nava MD Unavailable [phone] Vinny Sragent MD Unavailable Mirlande Dean APRN Unavailable Active Problems Problem Noted Date Diagnosed Date Tobacco use disorder 06/12/2021 HTN (hypertension) 11/10/2020 High cholesterol 11/10/2020 Alcohol consumption of more than four drinks per day 10/30/2020 Rectal cancer 10/03/2020 Cancer Staging:Clinical stage from 09/25/2020:Stage IIIA(cT2, cN1b, cM0) - Signed by Padmini Ramirez MD on 10/30/2020 Pathologic stage from 05/22/2022: rpT2, rcN0, rcM0 - Signed by Padmini Ramirez MD on 06/19/2022 Hematochezia 10/03/2020 Current Treatment and Therapy Plans (ONC) MED ONC OUTPATIENT ELECTROLYTE REPLACEMENT PROTOCOL* Plan Start Date: 01/23/2021 Plan Provider:Padmini Ramirez MD Linked Problems Rectal cancer (CMS/HCC) Treatment Medications No medications scheduled. Past Treatment and Therapy Plans Oncology Treatment Plan Name Start Date Discontinue Date Treatment Medications Discontinue Reason Plan Provider Cycles [id number]: Leucovorin + Fluorouracil + OXALIplatin Every 14 Days x 2 Every 28 Days 03/20/2021 5-FU (Adrucil)5-FU (Adrucil) infusion - for home use (VENDOR supplied)fluor ouracil (Adrucil)Oxali platin (Eloxatin)OXAL Iplatin (Eloxatin) IVPB Therapy Complete Padmini Ramirez MD 4 of 6 cycles started Past Radiation Episodes * IMRT: Midline RectumOverview* First Treatment Date Last Treatment Date Treatment Site Technique Goal Episode Provider 03/20/2021 04/25/2021 Midline Rectum IMRT Curative * Linked Problems Rectal cancer Treatment Courses* Course C1 03/20/2021 - 04/25/2021 Treatment Period Fraction Dose Fractions Total Dose Plans Planned A1A4 pelvis 03/20/2021 - 04/25/2021 200 cGy 25 / 25 5,000 cGy Reference Points Delivered pelvis 03/20/2021 - 04/25/2021 5,000 cGy Lifetime Dose Tracking * Chemical Lifetime Dose Automatic Entry Manual Entr y Fluoro Time 1.008 minutes 1.008 minutes 0 minutes Air Kerma 15.9 mGy 15.9 mGy 0 mGy
--- OUTSIDE RECORDS SUMMARY | 2024-10-13 08:54 | XMS_ITS | Encounter Summary ---
Author Organization [facility] Address [address] [place] [place] [address] Care Team Providers Care Track Liner Operator Name Role Phone Constantino Barnes Primary Care Provider Padmini Nava MD Unavailable [phone] Vinny Sargent MD Unavailable [phone] Mirlande Dean APRN Unavailable Reason for Visit * Reason Comments Med Refill Encounter Details Date Type Department Care Team ([facility] st Contact Info) Description 01/28/2022 Refill [facility] Multidisciplinary Oncology Clinic [address] [place] [address] Padmini Ramirez MD 800 [facility] [address] [place] [address] Social History Tobacco Use Types Packs/Day Years Used Date Smoking Tobacco: Former Cigarettes 2 20 1 967 - 1987 Smokeless Tobacco: Current Chew Alcohol Use Standard Drinks/Week Comments Not Currently 42 (1 standard drink = 0.6 oz pure alcohol) Patient states has not drank in last two months as of 11/02/20 PHQ-2 Answer Date Recorded Patient Health Questionnaire-2 Score 0 12/25/2021 Sex and Gender Information Value Date Recorded [...] EDT Appointment [facility] [address] [place] [phone] 01/04/2025 9:20 AM EDT Clinical Support [facility] [address] [place] [address] 01/04/2025 9:30 AM EDT Office Visit [facility] [address] [place] [address] Mirlande Dean, SUSAN 800 [facility] Delores Andrews [facility] [address] [place] [address] 01/04/2025 10:30 AM EDT Office Visit [facility] [address] [place] [address] Shamar Gomez MD [address] [facility] [address] [place] [address] documented as of this encounter Visit Diagnoses Not on filedocumented in this encounter Additional Health Concerns Assessment Noted Time A fall risk assessment has been complete d for the patient 12/25/2021 9:48 AM EDT documented as of this encounter Care Teams Track Liner Operator Relationship Specialty Start Date End Date Constantino Barnes PCP - General 10/03/20 Padmini Ramirez MD 800 [facility] Del[address] Andrews [facility] [address] [place] [phone] Consulting Physician Medical Oncology 02/06/21 Vinny Sargent MD 800 [facility] [address] [place] [address] Radiation Oncologist Radiation Oncology 02/19/21 Mirlande Dean APRN 800 [facility] [address] [address] Nurse Practitioner Internal Medicine 04/10/21 documented as of this encounter
--- OUTSIDE RECORDS SUMMARY | 2024-10-13 08:54 | XMS_ITS | Clinical Summary ---
Author Organization [facility] Address [address] [place] [address] Care Team Providers Care Conveyor Belt Repairer Name Role Phone Constantino Barnes Primary Care Provider Padmini Nava MD Unavailable [phone] Vinny Sargent MD Unavailable [phone] Mirlande Dean APRN Unavailable Allergies No known active allergies Medications allopurinol (Zyloprim) 100 MG tablet Take 1 tablet by mouth 2 times a day. Active lisinopril 10 MG tablet Take 1 tablet by mouth once daily 90 tablet 3 01/28/2022 Active Active Problems Problem Noted Date Diagnosed Date Tobacco use disorder 06/12/2021 HTN (hypertension) 11/10/2020 High cholesterol 11/10/2020 Alcohol consumption of more than four drinks per day 10/30/2020 Rectal cancer 10/03/2020 Cancer Staging:Clinical stage from 09/25/2020:Stage IIIA(cT2, cN1b, cM0) - Signed by Padmini Ramirez MD on 10/30/2020 Pathologic stage from 05/22/2022: rpT2, rcN0, rcM0 - Signed by Padmini Ramirez MD on 06/19/2022 Hematochezia 10/03/2020 Encounters Date Type Department Care Team Description 08/30/2024 8:05 AM EDT Anesthesia Event [facility] [address] [place] [address] Pepe William MD Freese, Brooke N, MD 08/30/2024 6:46 AM EDT - 08/30/2024 11:59 PM EDT Hospital Encounter [facility] [address] [place] [address] Shamar Gomez MD Adams, Glenda A, RN Rectal cancer ([facility]) Discharge Disposition: Home or Self Care 08/30/2024 Travel 08/02/2024 Orders Only [facility] [address] [place] [phone] Padmini Ramirez MD from Last 3 Months Family History 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 Relation Name Comments Cervical cancer Mother Anesthesia problems Neg Hx Malig Hyperthermia Neg Hx Relation Name Status Comments Mother Social History Tobacco Use Types Packs/Day Years Used Date Smoking Tobacco: Former Cigarettes 2 7 1986 Passive Smoke Exposure: Past Smokeless Tobacco: Current Chew Tobacco Cessation:Ready to Q uit: Not Asked; Counseling Given: Not Answered Alcohol Use Standard Drinks/Week Comments Not Currently [...] Orientation Straight 10/11/2020 1: 14 PM EDT Last Filed Vital Signs Vital Sign Reading [...] Mass Index 32.7 08/30/2024 7:16 AM EDT Plan of Treatment Upcoming Encounters Date Type Department Care Team (Late st Contact Info) Description 01/04/2025 7:00 AM EDT Appointment [facility]iology [address] [place] [address] 01/04/2025 9:20 AM EDT Clinical Support [facility] [address] [place] [address] 01/04/2025 9:30 AM EDT Office Visit [facility] [address] [place] [address] Mirlande Dean, MATERIAL ANALYST [address] [facility] [address] [place] [address] 01/04/2025 10:30 AM EDT Office Visit [facility] [address] [place] [address] Shamar Gomez MD [address] [facility] [address] [place] [address] Health Maintenance Due Date Last Done Comments [facility]-Hepatitis C Screening 1950 [facility]-Medicare Annual Wellness (AWV) 1950 [facility]-Infant/Child/Adol SDOH Screenings 1950 [facility]- SDOH Screenings 1969 [facility]-Adult SDOH Screenings 1969 [facility]-Zoster Vaccines (1 of 2) 1970 CT Colonography 1996 FIT-DNA 1996 FIT 1996 FOBT 1996 [facility]-Abdominal Aortic Aneurysm (AAA) Screening 2016 [facility]-FOPFQ-60 Vaccine ( season) 2023 04/24/2023, 03/12/2022, 09/27/2021, Additional history exists [facility]-Depression Screening 12/01/2024 12/02/2023, 11/19 Colonoscopy 08/30/2027 08/30/2024, 08/26/2022 [facility]-Colorectal Cancer Screening 08/30/2027 Sigmoidoscopy 11/30/2028 12/01/2023, 0208/2023, 12/02/2022, Additional history exists [facility]-DTaP,Tdap,and Td Vaccines (2 - Td or Tdap) 10/13/2031 10/12/2021 [facility]-RSV Vaccine: 60+ Years or Completed 03/20/2023 [facility]-Pneumococcal Vaccine: 50+ Years Completed 09/24/2023, 02/09/2019, 02/21/2017 [facility]-Influenza Vaccine Completed 03/09/2024 , 03/11/2023, 01/31/2022, Additional history exists [facility]-Obesity Intervention Completed 025, 12/02/2023, 06/03/2023, Additional history exists HPV Vaccines Aged Out No longer eligi ble based on patient's age to complete this topic [facility]-HIB Vaccines Aged Out No longer e ligible based on patient's age to complete this topic [facility]-Hepatitis A Vaccines Aged Out No longer eligible based on patient's age to complete this topic [facility]-IPV Vaccines Aged Out No longer e ligible based on patient's age to complete this topic [facility]-Rotavirus Vaccines Aged Out No lo nger eligible based on patient's age to complete this topic Goals Goal Patient Goal Type Associated Problems Recent Progress Patient-Stated? Author Autogenerat ed Goal Care Plan Autogenerated Problem [employer] Implanted Type Area Training Representative Device Identifier Shelf Expiration Date Model / Serial / Lot Port Clearvue Power 8fr - [id number] - [id number] Implanted:Qty : 1 on 11/10/2020 by Renetta Florence MD at [facility] Implant N/A: Chest [id number] 02/18/2022 [id number] / [id number] / Procedures Procedure Name Priority Date/Time Associated Diagnosis Comments COLONOSCOPY Routine 08/30/2024 8:25 AM EDT Rectal cancer (CMS/HCC) FLEXIBLE SIGMOIDOSCOPY Routine 4 9:42 AM EDT Rectal cancer (CMS/HCC) from Last 3 Months or Most Recently Relevant to Health Maintenance Results * Colonoscopy (08/30/2024 8:25 AM EDT) [...] Shamar Gomez MD Proceduralist Ariadne Marley Endo Front Desk Assistant Pepe William MD Anesthesiologist Mayra Garcias CRNA, MICHAEL CHEESE FACTORY WORKER Preprocedure A history and physical has been [...] of bowel preparation was evaluated using the Spencer Bowel Preparation Scale with scores of: right [...] Gomez MD GI PROCEDURE ORDERABLES Final Result * Flexible Sigmoidoscopy (12/01/2023 9:42 AM EDT) Anatomical Region Laterality Modality Endoscopy Narrative 12/01/2023 10:26 AM EDT Table formatting from the original result was not included. Impression: Mild scarred mucosa in the rectum Flexible sigmoidoscopy performed in the setting of rectal cancer. Complete response after total neoadjuvant therapy. Surveillance sigmoidoscopy once again demonstrates healthy-appearing scar in the anterior midline position. No mucosal abnormality to suggest intraluminal recurrence. Scar is located below the level of the 1st rectal valve. No change. Recommend full colonoscopy in 1 year. Recommendations Other Indication Rectal cancer ([facility]) Medications See anesthesia record for anesthesia administered medications. Staff Staff Role Armando Sepulveda MD Anesthesiologist Abeba Magana RN Endo Nurse Namita Paz CRNA CRNA Hourigan, Jon S, MD Proceduralist Veda Wells Endo Nurse Preprocedure A history and physical has been [...] blood pressure, heart rate, level of consciousness, oxygen and respirations were monitored throughout the procedure. A digital rectal exam was performed. A perianal exam was performed. The scope was introduced through the anus and advanced to the sigmoid colon. Retroflexion was performed in the rectum. The quality of bowel preparation was evaluated using the Spencer Bowel Preparation Scale with scores of: left colon = 2. Bowel prep was adequate. The patient experienced no blood loss. The procedure was not difficult. The patient tolerated the procedure well. Attestation I personally performed the entire procedure Specimens No specimens were documented in this log. Findings Mild, localized scarred mucosa in the rectum; no bleeding was identified Shamar Gomez MD GI PROCEDURE ORDERABLES Final Result from Last 3 Months or Most Recently Relevant to Health Maintenance Additional Health Concerns Active Problems Noted Date Diagnosed Date Autogenerated Problem 06/29/2024 Insurance MEDICARE [facility] Care Teams Conveyor Belt Repairer Relationship Specialty Start Date End Date Constantino Barnes PCP - General 10/03/20 Padmini Ramirez MD [address] [place] [phone] Consulting Physician Medical Oncology 02/06/21 Vinny Sargent MD [address] [facility] [address] [place] [address] Radiation Oncologist Radiation Oncology 02/19/21 Mirlande Dean APRN [address] [facility] [address] [place] [address] Nurse Practitioner Internal Medicine 04/10/21
--- OUTSIDE RECORDS SUMMARY | 2024-10-13 08:54 | XMS_ITS | Encounter Summary ---
Author Organization [facility] Address [address] [place] [address] Care Team Providers Care Senior Qa Tester Name Role Phone Constantino Barnes Primary Care Provider Padmini Nava MD Unavailable [phone] Vinny Sargent MD Unavailable [phone] Mirlande Dean CLIENT FINANCE ANALYST Unavailable [phone] Encounter Details Date Type Department Care Team (Late st Contact Info) Description 06/18/2021 Lab Requisition [facility] [address] [place] [address] Padmini Ramirez MD 800 [facility] [address] [place] [phone] Malignant neoplasm of rectum (CMS/HCC) Social History Tobacco Use Types Packs/Day Years Used Date Smoking Tobacco: Former Cigarettes 2 20 1 967 - 1987 Smokeless Tobacco: Current Chew Alcohol Use Standard Drinks/Week Comments Not Currently 42 (1 standard drink = 0.6 oz pure alcohol) Patient states has not drank in last two months as of 11/02/20 PHQ-2 Answer Date Recorded Patient Health Questionnaire-2 Score 0 11/06/2020 Sex and Gender Information Value Date Recorded Sex Assigned at Male 10/11/2020 1:12 PM EDT Legal Sex Male 10:05 AM EDT Gender Identity Male 10/11/2020 1:12 PM EDT Sexual Orientation Straight 10/11/2020 1: 14 PM EDT COVID-19 Exposure Response Date Recorded In the last month, have you been in contact with someone who was confirmed or suspected to have Coronavirus / COVID-19? No / Unsure 06/11/2021 9:23 AM EST documented as of this encounter Plan of Treatment Upcoming Encounters Date Type Department Care Team (Late st Contact Info) Description 01/04/2025 7:00 AM EDT Appointment [facility] Radiology [address] [place] [address] 01/04/2025 9:20 AM EDT Clinical Support [facility] [address] [place] [address] 01/04/2025 9:30 AM EDT Office Visit [facility] [address] [place] [address] Mirlande Dean, CLIENT FINANCE ANALYST 800 [facility] [address] [place] [address] 01/04/2025 10:30 AM EDT Office Visit [facility] [address] [place] [address] Shamar Gomez MD [address] [facility] [address] [place] [address] documented as of this encounter Procedures Procedure Name Priority Date/Time Associated Diagnosis Comments AP MISCELLANEOUS LAB TEST (SO) Routine 06/18/2021 12:00 AM EST Malignant neoplasm of rectum (CMS/HCC) documented in this encounter Results * - Miscellaneous Test (06/18/2021 12:00 AM EST) Test name Altera-Aleisha era 08/02/2021 8:49 AM EDT [facility] Comment:[id number](consult)/[id number] Test Result see scan 08/02/2021 8:[address] [facility] See Scanned Result 08/02/2021 8:[address] [facility] Tissue 06/18/2021 06/18/2021 3:0 0 PM EST us Padmini Ramirez MD LAB REF LAB BLOOD AND FLUID OR D Final Result [facility] documented in this encounter Visit Diagnoses Diagnosis Malignant neoplasm of rectum (CMS/HCC) Malignant neoplasm of rectum documented in this encounter Additional Health Concerns Assessment Noted Time A fall risk assessment has been complete d for the patient 06/12/2021 11:05 AM EST documented as of this encounter Care Teams Senior Qa Tester Relationship Specialty Start Date End Date Constantino Barnes PCP - General 10/03/20 Padmini Ramirez MD [address] [place] [address] Consulting Physician Medical Oncology 02/06/21 Vinny Sargent MD [address] [place] [address] Radiation Oncologist Radiation Oncology 02/19/21 Mirlande Dean APRN [address] [place] [address] Nurse Practitioner Internal Medicine 04/10/21 documented as of this encounter
--- OUTSIDE RECORDS SUMMARY | 2024-10-13 08:54 | XMS_ITS | Encounter Summary ---
Author Organization [facility] Address [address] [place] [address] Care Team Providers Care Pipefitter Name Role Phone Constantino Barnes Primary Care Provider Padmini Nava MD Unavailable [phone] Vinny Sargent MD Unavailable [phone] Mirlande Dean APRN Unavailable [phone] Encounter Details Date Type Department Care Team (Late st Contact Info) Description 10/03/2020 Lab Requisition [facility] [address] [place] [address] Shamar Gomez MD [address] [facility] [address] [place] [address] Other specified diseases of anus and rectum Social History Tobacco Use Types Packs/Day Years Used Date Smoking Tobacco: Former Cigarettes 2 20 Smokeless Tobacco: Current Chew Alcohol Use Standard Drinks/Week Comments Yes 42 (1 standard drink = 0.6 oz pu re alcohol) 6 drinks daily PHQ-2 Answer Date Recorded Patient Health Questionnaire-2 Score 0 10/03/2020 Sex and Gender Information Value Date Recorded [...] have Coronavirus / COVID-19? No / Unsure 10/03/2020 8:27 AM EDT documented as of this encounter Functional Status * Over the past 2 weeks, how often have you been bothered by any of the following problems? Question Answer Date of Assessment Author Little interest or pleasure in doing things Not at all 10/03/2020 8:00 AM EDT Pam Vogel Feeling down, depressed, or hopeless Not at all 10/03/2020 8:00 AM EDT Pam Vogel Patient Health Questionnaire -2 Score 0 10/03/2020 8:00 AM EDT Pam Vogel documented as of this encounter Plan of Treatment Upcoming Encounters Date Type Department Care Team (Late st Contact Info) Description 01/04/2025 7:00 AM EDT Appointment [facility] Radiology [address] [place] [address] 01/04/2025 9:20 AM EDT Clinical Support [facility] Multidisciplinary Oncology Clinic [address] [place] [address] 01/04/2025 9:30 AM EDT Office Visit [facility] Mult[facility] Oncology Clinic [address] [place] [address] Mirlande Dean, DAG COATER 800 [facility] [address] [place] [address] 01/04/2025 10:30 AM EDT Office Visit [facility] Multidisciplinary Oncology Clinic [address] [place] [address] Shamar Gomez MD [address] [facility] [address] [place] [address] documented as of this encounter Procedures Procedure Name Priority Date/Time Associated Diagnosis Comments SURGICAL PATHOLOGY CONSULT Routine 10/03/2020 1:58 PM EDT Other specified diseases of anus and rectum documented in this encounter Results * Surgical Pathology Consult (10/03/2020 1:58 PM EDT) Case Report Sugical Pathology Consult Case: [id number] Authorizing Provider: Shaamr Gomez MD Collected: 10/03/2020 1358 Ordering Location: [facility] Lab Received: 10/03/2020 1358 Pathologist: Jef Gloria MD Specimen: Rectal, [id number] 12:53 PM EDT [facility] Addendum This addendum is to document the provided clinical information: Rectal bleeding 12:53 PM EDT [facility] Addendum electronically signed by Jef Gloria MD on 10/12/2020 at 1253 EDT Comment:These results have b een appended to a previously final verified report. Final Diagnosis RECTAL MASS, BIOPSIES (OUTSIDE SLIDES COLLECTED 09/25/20): - INVASIVE MODERATELY DIFFERENTIATED ADENOCARCINOMA. - PER REPORT, TUMOR SHOWS INTACT STAINING FOR MSI IMMUNOHISTOCHEMISTRY (LOW PROBABILITY MSI-H RELATED TUMOR). 12:53 PM EDT [facility] at 1358 EDT Microscopic Description Tumor invades into submucosa of biopsied tissue. 12:53 PM EDT [facility] Tissue Specimen from rectum / Unknown 10/03/2020 1:58 PM EDT 10/03/2020 1:58 PM EDT us Shamar Gomez MD LAB PATHOLOGY ORDERABLES Edite d Result - Final [facility] [address] [place] [address] documented in this encounter Visit Diagnoses Diagnosis Other specified diseases of anus and rectum documented in this encounter Additional Health Concerns Assessment Noted Time A fall risk assessment has been complete d for the patient 10/03/2020 8:40 AM EDT documented as of this encounter Care Teams Pipefitter Relationship Specialty Start Date End Date Constantino Barnes PCP - General 10/03/20 Padmini Ramirez MD [address] [facility] [address] [facility] [address] [place] [address] [place] [address] Consulting Physician Medical Oncology 02/06/21 Vinny Sargent MD [address] [place] [address] Radiation Oncologist Radiation Oncology 02/19/21 Mirlande Dean, DAG COATER [address] [facility] [address] [place] [address] Nurse Practitioner Internal Medicine 04/10/21 documented as of this encounter
[2024-10-13] MEDS: SODIUM CHLORIDE 0.9% 10ML FLUSH SYRINGE 10 ML IV (08:55)
== END 2024-10-13 09:00 | disposition home or self-care (01) ==
LOC: INF 08:52
PROVIDERS: PCP Family Medicine; Visit Provider Internal Medicine Hematology & Oncology
DX: Z45.2 Encounter for adjustment and management of vascular access device (principal)
CPT/HCPCS: 96523; J1642

== ENCOUNTER 2024-10-23 04:21 | Emergency (ER) | payer MEDICARE, OTHER, MEDICAID, SELFPAY ==
--- OUTSIDE RECORDS SUMMARY | 2024-08-30 06:46 | XMS_ITS | Encounter Summary ---
Author Organization [facility] Address [address] [place] [address] Care Team Providers Care Professional Fighter Name Role Phone Constantino Barnes Primary Care Provider Padmini Nava MD Unavailable [phone] Vinny Sargent MD Unavailable [phone] Mirlande Dean APRN Unavailable [phone] Reason for Referral * Imaging (Routine) - Closed Specialty Diagnoses / Procedures Referred By Contac t Referred To Contact Gastroenterology Diagnoses Rectal cancer (CMS/HCC) Procedures Colonoscopy Shamar Gomez MD [address] [address] Phone: tel: fax: Referral ID Status Reason Start Date Expiration Date V isits Requested Visits Authorized [id number] Closed Specialty Services Required 06/29/2024 12/29/2025 1 1 Reason for Visit * Imaging (Routine) - Closed Specialty Diagnoses / Procedures Referred By Contac t Referred To Contact Gastroenterology Diagnoses Rectal cancer ([facility]/HCC) Procedures Colonoscopy Shamar Gomez MD [address] [address] Phone: tel: fax: Referral ID Status Reason Start Date Expiration Date V isits Requested Visits Authorized [id number] Closed Specialty Services Required 06/29/2024 12/29/2025 1 1 Encounter Details Date Type Department Care Team (Latest Contact Info) Description 08/30/2024 6:46 AM EDT - 08/30/2024 11:59 PM EDT Hospital Encounter [facility] [address] [place] [address] Shamar Gomez MD [address] [place] [address] Laurel Santo RN Rectal cancer ([facility]) Discharge Disposition: Home or Self Care [...] from the original note were not included. [id number] Anesthesia: General Anesthesia You?re due to have [...] medicines you take. This includes prescription and yyws-vtt-jykkuul medicines. It also includes vitamins, herbs, and [...] safe. Last Reviewed Date: 2023 00:00:00 ?? [id number] [employer]. All rights reserved. This information is not intended as a substitute for professional medical care. Always follow your healthcare professional's instructions. * Suman De Leon - Emili Breaux - 08/30/2024 7:46 AM EDT Images from the original note were not included. [id number] Endoscopy Unit: Caring for Yourself after a [...] will be available in the patient portal, [facility]. Or you can call the doctor who [...] Gomez MD - 08/30/2024 7:30 AM EDT [facility] Endoscopy H&P Mr. Willam Hong is a 74 y.o. male that presents to [facility] for endoscopic evaluation. Past medical history and [...] from the original note were not included. [id number] Anesthesia: General Anesthesia You?re due to have [...] medicines you take. This includes prescription and njmc-gbs-qejoyah medicines. It also includes vitamins, herbs, and [...] safe. Last Reviewed Date: 2023 00:00:00 ?? [id number] [employer]. All rights reserved. This information is not intended as a substitute for professional medical care. Always follow your healthcare professional's instructions. * Suman MaddoxKATRINA - Kaelyn Dolan RN - 08/30/2024 7:01 AM EDT Images from the original note were not included. [id number] Endoscopy Unit: Caring for Yourself after a [...] will be available in the patient portal, [facility]. Or you can call the doctor who [...] EDT Appointment [facility] [address] [place] [phone] 01/04/2025 9:20 AM EDT Clinical Support [facility] [address] [place] [address] 01/04/2025 9:30 AM EDT Office Visit [facility] [address] [place] [phone] Mirlande Dean, CAREERS COUNSELLOR 800 [facility] Delores Andrews [facility] [address] [place] [address] 01/04/2025 10:30 AM EDT Office Visit [facility] Multidisciplinary Oncology Clinic [address] [place] [address] Shamar Gomez MD [address] [facility] [address] [place] [phone] documented as of this encounter Goals Goal Patient Goal Type Associated Problems Recent Progress Patient-Stated? Author Autogenerat ed Goal Care Plan Autogenerated Problem Floridalma Spain documented as of this encounter Procedures Procedure Name Priority Date/Time Associated Diagnosis Comments COLONOSCOPY Routine 08/30/2024 8:25 AM EDT Rectal cancer ([facility]) documented in this encounter Results * [...] Shamar Gomez MD Proceduralist Ariadne Marley Endo Surg Physician Asst Pepe William MD Anesthesiologist Mayra Garcias CRNA, [...] of bowel preparation was evaluated using the [place] Bowel Preparation Scale with scores of: right [...] documented as of this encounter Care Teams Professional Fighter Relationship Specialty Start Date End Date Constantino Barnes PCP - General 10/03/20 Padmini Ramirez MD [address] Andrews [facility] [address] [place] [address] Consulting Physician Medical Oncology 02/06/21 Vinny Sargent MD [address] [place] [phone] Radiation Oncologist Radiation Oncology 02/19/21 Mirlande Dean APRN [address] Andrews [address] [place] [address] Nurse Practitioner Internal Medicine 04/10/21 documented as of this encounter
--- OUTSIDE RECORDS SUMMARY | 2024-08-30 08:05 | XMS_ITS | Encounter Summary ---
Author Organization [facility] Address [address] [place] [address] Care Team Providers Care Fitting Room Attendant Name Role Phone Constantino Barnes Primary Care Provider Padmini Nava MD Unavailable [phone] Vinny Sargent MD Unavailable [phone] Mirlande Dean APRN Unavailable Encounter Details Date Type Department Care Team (Late st Contact Info) Description 08/30/2024 8:05 AM EDT Anesthesia Event [facility] [address] [place] [address] Pepe William MD [address] [place] [address] Angelique Mcarthur MD [address] [place], [place] [phone] Anesthesia Record Procedure Summary Procedure Name Responsible [...] providers: Shamar Gomez MD Procedure: COLONOSCOPY Location: [facility] Endoscopy Willam Hong is a 74-year-old [...] EDT Appointment [facility] [address] [place] [address] 01/04/2025 9:20 AM EDT Clinical Support [facility] Multidisciplinary Oncology Clinic [address] [place] [address] 01/04/2025 9:30 AM EDT Office Visit [facility] Multidisciplinary Oncology Clinic [address] [place] [address] Mirlande Dean, COUNTY MANAGER 800 [facility] eDlores Andrews [facility] [address] [place] [address] 01/04/2025 10:30 AM EDT Office Visit [facility] Multidisciplinary Oncology Clinic [address] [place] [address] Shamar Gomez MD [address] [facility] [address] [place] [address] documented as of this encounter Goals Goal [...] documented as of this encounter Care Teams Fitting Room Attendant Relationship Specialty Start Date End Date Constantino Barnes PCP - General 10/03/20 Padmini Ramirez MD [address] [facility] [address] [place] [address] Consulting Physician Medical Oncology 02/06/21 Vinny Sargent MD [address] [facility] [address] [place] [address] Radiation Oncologist Radiation Oncology 02/19/21 Mirlande Dean APRN [address] [facility] [address] [place] [address] Nurse Practitioner Internal Medicine 04/10/21 documented as of this encounter
[2024-10-23 04:31] VITALS: BP 157/85; PULSE 63; RESP 16; TEMP 36.6; O2SAT 98; BMI 25.8
--- NOTE | 2024-10-23 04:32 | HMH.EDGENADL ---
Discharge Plan Disposition Patient Disposition: Home, Self-Care Prescriptions Prescriptions: No Action pravastatin 40 MG tablet 40 mg PO HS allopurinol 100 MG tablet 100 mg PO BID lisinopril 10 MG tablet 10 mg PO DAILY Referrals Follow up/Referrals: Constantino Magallanes MD [Primary Care Provider, Medical] - See instructions Activity Restrictions/Add. Instructions Additional Instructions/Restrictions: Recommend taking urqz-voc-gurfbgb antihistamine such as loratadine daily in addition to as needed Benadryl. Recommend using bqro-mqr-spdnikj steroid cream. Follow-up with PCP if symptoms persist or worsen. Clinical Impressions Clinical Impression: Contact dermatitis Print Language Print Language: Uzbek Discharge ED Provider: Ricardo Mattson General Adult HPI General Chief complaint: Allergic Reaction Stated complaint: hives legs, arms Time Seen by Provider: 10/23/24 04:24 History of Present Illness HPI narrative: 74-year-old male with history of gout, hypertension, hyperlipidemia presents for hives. He reports that he was sitting out in the grass earlier today watching fireworks. Over the last couple of hours he has had worsening hives and itchiness in the back of his legs and on his forearms. He denies any shortness of breath, tongue swelling lip swelling wheezing or any other respiratory symptoms. Denies any nausea vomiting or diarrhea. He has not taken anything prior to arrival. Denies any significant allergies. Related Data Home Medications ?Medication ?Instructions ?Recorded ?Confirmed allopurinol 100 mg tablet 100 mg PO BID gout 09/24/20 10/09/22 lisinopril 10 mg tablet 10 mg PO DAILY Hypertension 09/24/20 10/09/22 pravastatin 40 mg tablet 40 mg PO HS Cholesterol 09/24/20 10/09/22 Allergies Allergy/AdvReac Type Severity Reaction Status Date / Time No Known Allergies Allergy Unverified 04/08/17 14:44 [facility] Disclaimer: The information contained in this section may have been updated after the patient was seen, as this information can be updated by other users. 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 Social History Smoking Status: Never smoker alcohol intake: current alcohol intake frequency: 3 or more drinks per day substance use type: denies use current occupational status: retired Travel in the last 8 weeks?: None household members: family housing: house caffeine: Yes Have you lived/traveled outside US in past 30 days?: No Contact w/someone who lives/traveled outside US past 30 days?: No Exposure to someone with infectious disease in past 14 days?: No Do you have a fever (greater than 100.4 F or 38 C)?: No Have you tested positive for COVID-19?: No Exposed to someone with COVID-19 in past 14 days?: No Do you have a sore throat?: No Do you have a cough?: No Do you have any weakness?: No Do you have any diarrhea?: No Are you experiencing any unusual bleeding?: No Do you have any muscle aches/pain?: No Do you have any abdominal pain?: No Are you experiencing loss of taste or smell?: No Other 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 Have you received the Flu Vaccine for this season: No Have you received the Pneumonia Vaccine: No ROS Obtained: Yes All systems reviewed & no additional complaints except as documented Physical Exam General General appearance: alert and in no apparent distress Head Head exam: atraumatic and normocephalic Eye Eye exam: Present normal appearance, PERRL and EOMI ENT ENT exam: Present normal oropharynx and normal external ear exam Neck Neck exam: Present normal inspection and full ROM Chest Chest inspection: Present normal inspection and symmetric chest wall rise; Absent tenderness Respiratory Respiratory exam: Present normal lung sounds bilaterally; Absent respiratory distress Cardiovascular Cardiovascular exam: Present regular rate and normal rhythm Abdominal Exam Abdominal exam: Present soft; Absent distention, tenderness or guarding Extremities Exam Extremities exam: Present normal inspection; Absent edema or joint swelling Back Exam Back exam: Present normal inspection; Absent tenderness Neurological Exam Neurological exam: Present alert and oriented X3; Absent motor sensory deficit Psychiatric Psychiatric exam: Present normal affect and normal mood Skin Skin exam: Present warm, dry, normal color and rash (Hives in the posterior thighs and the forearms) Lymphatic Lymphatic Findings: no adenopathy Medical Decision Making Medical Records Medical records reviewed: Yes I reviewed the patient's medical records. Screening: Per USPSTF and CDC recommendations, given the prevalence of disease in our region, it is our hospital?s policy to screen for HIV and viral Hepatitis for all patients aged 18 and over and those with ongoing risk factors. Luis Inquiry Pt receiving controlled substance: No Luis was queried for this patient: No Vital Signs: 10/23/24 04:31 Temperature 97.8 F Temperature Source Oral Pulse Rate [Right Radial] 63 Respiratory Rate 16 Blood Pressure [Right Arm] 157/85 H Blood Pressure Mean [Right Arm] 109 Blood Pressure Position [Right Arm] Supine 02 Sat by Pulse Oximetry 98 Oxygen Delivery Method Room Air Lab Data Lab results reviewed: Yes I reviewed the patient's lab results. Orders (Tests/Meds): ED MEDICATIONS Discontinued Medications Generic Name Dose Route Start Last Admin Trade Name Kasey PRN Reason Stop Dose Admin Diphenhydramine HCl 50 mg 10/23/24 04:36 10/23/24 04:39 Diphenhydramine 25mg Capsule PO 10/23/24 04:37 50 mg ONCE ONE Administration Loratadine 10 mg 10/23/24 04:46 Loratadine 10mg Tablet PO 10/23/24 04:47 ONCE ONE Medical Decision Narrative: 74-year-old male with history of hypertension, rectal cancer, gout presents for hives after sitting in a lawn chair in the [employer] this evening. History was obtained via interactive discussion with patient, family, chart review. On arrival, patient is [afebrile, hemodynamically stable, satting appropriately, alert, oriented x4, GCS 15], moving all extremities spontaneously. Full physical exam performed and significant for urticaria on the posterior thighs and forearms Differential includes but is not limited to idiopathic urticaria, contact dermatitis, allergic reaction, anaphylaxis. No evidence of emergent or anaphylactic reaction at this time, does not require epi. Patient was given Benadryl. Recommend patient use ajqp-iut-skqeldj antihistamines and topical steroid cream as needed. Return precautions were given for signs or symptoms of anaphylaxis or more serious reaction. Patient was instructed follow-up PCP if symptoms continue. Procedures Risk/Benefits of Procedure(s) Were Explained: Yes Critical Care Critical Care Time Critical Care Time: No
--- OUTSIDE RECORDS SUMMARY | 2024-10-23 04:34 | XMS_ITS | Encounter Summary ---
Author Organization [facility] Address [address] [place] [address] Care Team Providers Care Snaker Driving Horses Name Role Phone Constantino Barnes Primary Care Provider Padmini Nava MD Unavailable [phone] Vinny Sargent MD Unavailable [phone] Mirlande Dean APRN Unavailable Reason for Visit * Reason Comments Med Refill Encounter Details Date Type Department Care Team ([facility] st Contact Info) Description 01/28/2022 Refill [facility] [address] [place] [address] Padmini Ramirez MD 800 [facility] [address] [place] [address] Social History Tobacco Use Types [...] EDT Appointment [facility] Radiology [address] [place] [address] 01/04/2025 9:20 AM EDT Clinical Support [facility] [address] [place] [address] 01/04/2025 9:30 AM EDT Office Visit [facility] [address] [place] [address] Mirlande Dean, SUSAN 800 [facility] Delores Andrews [facility] [address] [place] [address] 01/04/2025 10:30 AM EDT Office Visit [facility] [address] [place] [address] Shamar Gomez MD [address] [facility] [address] [place] [address] documented as of this encounter Visit Diagnoses Not on filedocumented in this encounter Additional Health Concerns Assessment Noted Time A fall risk assessment has been complete d for the patient 12/25/2021 9:48 AM EDT documented as of this encounter Care Teams Snaker Driving Horses Relationship Specialty Start Date End Date Constantino Barnes PCP - General 10/03/20 Padmini Ramirez MD 800 [facility] Delores Andrews [facility] [address] [place] [address] Consulting Physician Medical Oncology 02/06/21 Vinny Sargent MD 800 [facility] [address] [place] [address] Radiation Oncologist Radiation Oncology 02/19/21 Mirlande Dean APRN 800 [facility] [address] [address] Nurse Practitioner Internal Medicine 04/10/21 documented as of this encounter
--- OUTSIDE RECORDS SUMMARY | 2024-10-23 04:34 | XMS_ITS | Encounter Summary ---
Author Organization [facility] Address [address] [place] [address] Care Team Providers Care Atomic Fuel Assembler Name Role Phone Constantino Barnes Primary Care Provider Padmini Nava MD Unavailable [phone] Vinny Sargent MD Unavailable [phone] Mirlande Dean APRN Unavailable [phone] Encounter Details Date Type Department Care [...] EDT Appointment [facility] Radiology [address] [place] [address] 01/04/2025 9:20 AM EDT Clinical Support [facility] [address] [place] [address] 01/04/2025 9:30 AM EDT Office Visit [facility] [address] [place] [address] Mirlande Dean, INJECTION MOLDING TECHNICIAN 800 [facility] Darryl [facility] [address] [place] [address] 01/04/2025 10:30 AM EDT Office Visit [facility] [address] [place] [address] Shamar Gomez MD [address] [facility] [address] [place] [address] documented as of this encounter [...] documented as of this encounter Care Teams Atomic Fuel Assembler Relationship Specialty Start Date End Date Constantino Barnes PCP - General 10/03/20 Padmini Ramirez MD 800 [facility] Delores Andrews [facility] [address] [place] [address] Consulting Physician Medical Oncology 02/06/21 Vinny Sargent MD 800 [facility] [address] [place] [address] Radiation Oncologist Radiation Oncology 02/19/21 Mirlande Dean APRN 800 [facility] Delores Andrews [address] [address] Nurse Practitioner Internal Medicine 04/10/21 documented as of this encounter
--- OUTSIDE RECORDS SUMMARY | 2024-10-23 04:34 | XMS_ITS | Clinical Summary ---
Author Organization [facility] Address [address] [place] [address] Care Team Providers Care Planer Setter Name Role Phone Constantino Barnes Primary Care Provider Padmini Nava MD Unavailable [phone] Vinny Sargent MD Unavailable [phone] Mirlande Dean APRN Unavailable Allergies No [...] EDT Anesthesia Event [facility] Endoscopy 800 [place] [address] Pepe William MD [place], Brooke N, MD 08/30/2024 6:46 AM EDT - 08/30/2024 11:59 PM EDT Hospital Encounter [facility] Endoscopy [address] [place] [address] Shamar Gomez MD Adams, Glenda A, RN Rectal cancer ([facility]) Discharge Disposition: Home or Self Care 08/30/2024 Travel 08/02/2024 Orders Only [facility] [address] [place] [address] Padmini Ramirez MD from Last 3 Months [...] EDT Appointment [facility] Radiology [address] [place] [address] 01/04/2025 9:20 AM EDT Clinical Support [facility] [address] [place] [address] 01/04/2025 9:30 AM EDT Office Visit [facility] [address] [place] [address] Mirlande Dean, ACCELERATOR TECHNICIAN 800 [facility] Delores Andrews dg [address] [place] [address] 01/04/2025 10:30 AM EDT Office Visit [facility] [address] [place] [address] Shamar Gomez MD [address] [facility] [address] [place] [address] Health Maintenance Due Date Last Done Comments [facility]-Hepatitis C Screening 1950 [facility]Medicare Annual Wellness (AWV) 1950 [facility]-/Child/Adol SDOH Screenings 1950 [facility]- SDOH Screenings 1969 [facility]-Adult SDOH Screenings 1969 [facility]-Zoster Vaccines (1 of 2) 1970 CT Colonography 1996 FIT-DNA 1996 FIT 1996 FOBT 1996 [facility]-Abdominal Aortic Aneurysm (AAA) Screening 2016 XTP-[id number]-80 Vaccine ( season) 2023 04/24/2023, 03/12/2022, 09/27/2021, Additional history exists [facility]-Depression Screening 12/01/2024 12/02/2023, 11/19 [facility]-Influenza Vaccine (#1) 12/20/202403/09, 03/11/2023, 01/31/2022, Additional history exists Colonoscopy 08/30/2027 08/30/2024, 08/26/2022 [facility]-Colorectal Cancer Screening 08/30/2027 Sigmoidoscopy 11/30/2028 12/01/2023, 08/2023, 12/02/2022, Additional history exists [facility]-DTaP,Tdap,and Td Vaccines (2 - Td or Tdap) 10/13/2031 10/12/2021 [facility]-RSV Vaccine: 60+ Years or Completed 03/20/2023 [facility]-Pneumococcal Vaccine: 50+ Years Completed 09/24/2023, 02/09/2019, 02/21/2017 [facility]-Obesity Intervention Completed 025, 12/02/2023, 06/03/2023, Additional [...] Floridalma [place] Medical Devices Implanted Type Area Banbury Operator Device Identifier Shelf Expiration Date Model / Serial / Lot Port Clearvue Power 8fr - [id number] - [id number] Implanted:Qty : 1 on 11/10/2020 by Renetta Florence MD at [facility] Implant N/A: Chest Bard Periphe[employer] [id number] 02/18/2022 [id number] / [id number] / Procedures Procedure Name Priority Date/Time Associated [...] Shamar Gomez MD Proceduralist Ariadne Marley Endo Contact Lens Blocker Pepe William MD Anesthesiologist Mayra Garcias CRNA, MICHAEL NANNY/HOUSEHOLD MANAGER Preprocedure A history and physical has been [...] of bowel preparation was evaluated using the [place] Bowel Preparation Scale with scores of: right [...] 1 year. Recommendations Other Indication Rectal cancer ([facility]) Medications See anesthesia record for anesthesia administered medications. Staff Staff Role Armando Sepulveda MD Anesthesiologist Abeba Magana RN Endo Nurse Namita Paz, Shamar Barraza CRNA, MD Proceduralist Veda Wells Endo Nurse Preprocedure [...] of bowel preparation was evaluated using the [place] Bowel Preparation Scale with scores of: left [...] Diagnosed Date Autogenerated Problem 06/29/2024 Insurance MEDICARE [facility] Care Teams Planer Setter Relationship Specialty Start Date End Date Constantino Barnes PCP - General 10/03/20 Padmini Ramirez MD 800 [address] [facility] [address] [place] [address] Consulting Physician Medical Oncology 02/06/21 Vinny Sargent MD [address] [place] [address] Radiation Oncologist Radiation Oncology 02/19/21 Mirlande Dean APRN 800 [facility] Dar[address] [place] [address] Nurse Practitioner Internal Medicine 04/10/21
--- OUTSIDE RECORDS SUMMARY | 2024-10-23 04:34 | XMS_ITS ---
Author Organization [facility] Address [address] [place] [address] Care Team Providers Care Server Engineer Name Role Phone Constantino Barnes Primary Care Provider Padmini Nava MD Unavailable [phone] Vinny Sargent MD Unavailable [phone] Mirlande Dean APRN Unavailable [phone] Active Problems Problem Noted Date Diagnosed Date [...]
--- OUTSIDE RECORDS SUMMARY | 2024-10-23 04:34 | XMS_ITS | Encounter Summary ---
Author Organization [facility] Address [address] [place] [address] Care Team Providers Care Supervisor Personnel Clerks Name Role Phone Constantino Barnes Primary Care Provider Padmini Nava MD Unavailable [phone] Vinny Sargent MD Unavailable [phone] Mirlande Dean FIRER BOILER Unavailable Encounter Details Date Type Department Care Team (Late st Contact Info) Description 06/18/2021 Lab Requisition [facility] Lab [address] [place] [address] Padmini Ramirez MD 800 [facility] [address] [place] [address] Malignant neoplasm of rectum (CMS/HCC) Social History [...] EDT Appointment [facility] Radiology [address] [place] [address] 01/04/2025 9:20 AM EDT Clinical Support [facility] [address] [place] [address] 01/04/2025 9:30 AM EDT Office Visit [facility] [address] [place] [address] Mirlande Dean, FIRER BOILER 800 [facility] [address] [place] [address] 01/04/2025 10:30 AM EDT Office Visit [facility] [address] [place] [address] Shamar Gomez MD [address] [facility] [address] [place] [address] documented as of this encounter Procedures Procedure Name Priority Date/Time Associated Diagnosis Comments AP MISCELLANEOUS LAB TEST (SO) Routine 06/18/2021 12:00 AM EST Malignant neoplasm of rectum (CMS/HCC) documented in this encounter Results * - Miscellaneous Test (06/18/2021 12:00 AM EST) Test name Altera-Aleisha era 08/02/2021 8:49 AM EDT [facility] Comment:[id number](consult)/[id number] Test Result see scan 08/02/2021 8:49 AM [facility] See Scanned Result 08/02/2021 8:49 AM [facility] Tissue 06/18/2021 06/18/2021 3:0 0 PM EST us Padmini Ramirez MD LAB REF LAB BLOOD AND FLUID OR D Final Result [facility] documented in this encounter Visit Diagnoses Diagnosis Malignant neoplasm of rectum (CMS/HCC) Malignant neoplasm of rectum documented in this encounter Additional Health Concerns Assessment Noted Time A fall risk assessment has been complete d for the patient 06/12/2021 11:05 AM EST documented as of this encounter Care Teams Supervisor Personnel Clerks Relationship Specialty Start Date End Date Constantino Barnes PCP - General 10/03/20 Padmini Ramirez MD [address] Delores Andrews d[address] [place] [address] Consulting Physician Medical Oncology 02/06/21 Vinny Sargent MD [address] [place] [address] Radiation Oncologist Radiation Oncology 02/19/21 Mirlande Dean APRN [address] Delores Andrews [address] [place] [address] Nurse Practitioner Internal Medicine 04/10/21 documented as of this encounter
--- OUTSIDE RECORDS SUMMARY | 2024-10-23 04:34 | XMS_ITS | Encounter Summary ---
Author Organization [facility] Address [address] [place] [address] Care Team Providers Care Licensed Journeyman Electrician Name Role Phone Constantino Barnes Primary Care Provider Padmini Nava MD Unavailable [phone] Vinny Sargent MD Unavailable [phone] Mirlande Dean APRN Unavailable Encounter Details Date Type Department Care Team (Late st Contact Info) Description 10/03/2020 Lab Requisition [facility] [address] [place] [address] Shamar Gomez MD [address] [facility] [address] [place] [address] Other specified diseases of anus [...] EDT Appointment [facility] Radiology [address] [place] [address] 01/04/2025 9:20 AM EDT Clinical Support [facility] Multidisciplinary Oncology Clinic [address] [place] [address] 01/04/2025 9:30 AM EDT Office Visit [facility] Multidisciplinary Oncology Clinic [address] [place] [address] Mirlande Dean, BEEF SKINNER 800 [facility] Delores Andrews [address] [place] [address] 01/04/2025 10:30 AM EDT Office Visit [facility] Multidisciplinary Oncology Clinic [address] [place] [address] Shamar Gomez MD [address] [facility] [address] [place] [address] documented as of this encounter Procedures Procedure Name Priority Date/Time Associated Diagnosis Comments SURGICAL PATHOLOGY CONSULT Routine 10/03/2020 1:58 PM EDT Other specified diseases of anus and rectum documented in this encounter Results * Surgical Pathology Consult (10/03/2020 1:58 PM EDT) Case Report Sugical Pathology Consult Case: [id number] Authorizing Provider: Shamar Gomez MD Collected: 10/03/2020 1358 Ordering Location: [facility] Lab Received: 10/03/2020 1358 Pathologist: Jef Gloria MD Specimen: Rectal, [id number] 12:53 PM EDT [facility] Addendum This addendum is to document the provided clinical information: Rectal bleeding 12:53 PM EDT [facility] Addendum electronically signed by Jef Gloria MD on 10/12/2020 at 1253 EDT Comment:These results have b een appended to a previously final verified report. Final Diagnosis RECTAL MASS, BIOPSIES (OUTSIDE SLIDES COLLECTED 09/25/20): - INVASIVE MODERATELY DIFFERENTIATED ADENOCARCINOMA. - PER REPORT, TUMOR SHOWS INTACT STAINING FOR MSI IMMUNOHISTOCHEMISTRY (LOW PROBABILITY MSI-H RELATED TUMOR). 12:53 PM EDT [facility] at 1358 EDT Microscopic Description Tumor invades into submucosa of biopsied tissue. 12:53 PM EDT [facility] Tissue Specimen from rectum / Unknown 10/03/2020 1:58 PM EDT 10/03/2020 1:58 PM EDT us Shamar Gomez MD LAB PATHOLOGY ORDERABLES Edite d Result - Final [facility] [address] [place] [address] documented in this encounter Visit Diagnoses Diagnosis Other specified diseases of anus and rectum documented in this encounter Additional Health Concerns Assessment Noted Time A fall risk assessment has been complete d for the patient 10/03/2020 8:40 AM EDT documented as of this encounter Care Teams Licensed Journeyman Electrician Relationship Specialty Start Date End Date Constantino Barnes PCP - General 10/03/20 Padmini Ramirez MD 800 [facility] Darryl [facility] [address] [place] [address] [place] [address] Consulting Physician Medical Oncology 02/06/21 Vinny Sargent MD [address] [place] [address] Radiation Oncologist Radiation Oncology 02/19/21 Mirlande Dean, BEEF SKINNER [address] [facility] [address] [place] [address] Nurse Practitioner Internal Medicine 04/10/21 documented as of this encounter
[2024-10-23] MEDS: LORATADINE 10MG TABLET 10 MG PO (04:54)
[2024-10-23 04:55] VITALS: BP 142/82; PULSE 78; RESP 16; TEMP 36.6; O2SAT 99
== END 2024-10-23 05:00 | disposition home or self-care (01) ==
PROVIDERS: Emergency Provider Emergency Medicine; PCP Family Medicine
DX: L25.9 Unspecified contact dermatitis, unspecified cause (principal)
CPT/HCPCS: 99283

== ENCOUNTER 2024-11-24 08:59 | Outpatient (CLI) | payer MEDICARE, OTHER, MEDICAID, SELFPAY ==
--- OUTSIDE RECORDS SUMMARY | 2024-11-24 09:04 | XMS_ITS | Encounter Summary ---
Author Organization [facility] Address [address] [place] [address] Care Team Providers Care Manager Shell Name Role Phone Constantino Barnes Primary Care Provider Padmini Nava MD Unavailable [phone] Vinny Sargent MD Unavailable [phone] Mirlande Dean AMBULETTE DRIVER Unavailable [phone] Encounter Details Date Type Department Care Team (Late st Contact Info) Description 06/18/2021 Lab Requisition [facility] H Lab [address] [place] [address] Padmini Ramirez MD 800 [facility] [address] [place] [address] Malignant neoplasm of rectum (CMS/HCC) Social History [...] EDT Appointment [facility] A Radiology [address] [place] [address] 01/04/2025 9:20 AM EDT Clinical Support [facility] [address] [place] [address] 01/04/2025 9:30 AM EDT Office Visit [facility] [address] [place] [address] Mirlande Dean, AMBULETTE DRIVER 800 [facility] [address] [place] [address] 01/04/2025 10:30 AM EDT Office Visit [facility] [address] [place] [address] Shamar Gomez MD [address] [facility] [address] [place] [address] documented as of this encounter Procedures Procedure Name Priority Date/Time Associated Diagnosis Comments AP MISCELLANEOUS LAB TEST (SO) Routine 06/18/2021 12:00 AM EST Malignant neoplasm of rectum (CMS/HCC) documented in this encounter Results * - Miscellaneous Test (06/18/2021 12:00 AM EST) Test name Altera-Aleisha era 08/02/2021 8:49 AM EDT [facility] Comment:[id number](consult)/[id number] Test Result see scan 08/02/2021 8:49 AM [facility] See Scanned Result 08/02/2021 8:49 AM [facility] Tissue 06/18/2021 06/18/2021 3:0 0 PM EST us Padmini Ramirez MD LAB REF LAB BLOOD AND FLUID OR D Final Result [facility] documented in this encounter Visit Diagnoses Diagnosis Malignant neoplasm of rectum (CMS/HCC) Malignant neoplasm of rectum documented in this encounter Additional Health Concerns Assessment Noted Time A fall risk assessment has been complete d for the patient 06/12/2021 11:05 AM EST documented as of this encounter Care Teams Manager Shell Relationship Specialty Start Date End Date Constantino Barnes PCP - General 10/03/20 Padmini Ramirez MD [address]ores Andrews [address] [place] [address] Consulting Physician Medical Oncology 02/06/21 Vinny Sargent MD [address] [place] [address] Radiation Oncologist Radiation Oncology 02/19/21 Mirlande Dean APRN [address] Andrews [address] [place] [address] Nurse Practitioner Internal Medicine 04/10/21 documented as of this encounter
--- OUTSIDE RECORDS SUMMARY | 2024-11-24 09:04 | XMS_ITS ---
Author Organization [facility] Address [address] [place] [address] Care Team Providers Care A/C Tech Name Role Phone Constantino Barnes Primary Care Provider Padmini Nava MD Unavailable [phone] Vinny Sargent MD Unavailable [phone] Mirlande Dean APRN Unavailable Active Problems Problem [...]
--- OUTSIDE RECORDS SUMMARY | 2024-11-24 09:04 | XMS_ITS | Encounter Summary ---
Author Organization [facility] Address [address] [place] [address] Care Team Providers Care Dye Jig Operator Name Role Phone Constantino Barnes Primary Care Provider Padmini Nava MD Unavailable [phone] Vinny Sargent MD Unavailable [phone] Mirlande Dean APRN Unavailable [phone] Encounter Details Date Type Department Care Team (Late st Contact Info) Description 10/03/2020 Lab Requisition [facility] Lab [address] [place] [address] Shamar Gomez MD [address] [facility] [address] [place] [address] Other specified diseases of anus [...] EDT Appointment [facility] Radiology [address] [place] [address] 01/04/2025 9:20 AM EDT Clinical Support [facility] Multidisciplinary Oncology Clinic [address] [place] [address] 01/04/2025 9:30 AM EDT Office Visit [facility] Multidisciplinary Oncology Clinic [address] [place] [address] Mirlande Dena, VETERINARY MICROBIOLOGIST 800 [facility] Delores Andrews [address] [place] [address] 01/04/2025 10:30 AM EDT Office Visit [facility] Multidisciplinary Oncology Clinic [address] [place] [address] Shamar Gomez MD [address] [facility] [address] [place] [address] documented as of this encounter Procedures Procedure Name Priority Date/Time Associated Diagnosis Comments SURGICAL PATHOLOGY CONSULT Routine 10/03/2020 1:58 PM EDT Other specified diseases of anus and rectum documented in this encounter Results * Surgical Pathology Consult (10/03/2020 1:58 PM EDT) Case Report Sugical Pathology Consult Case: [id number] Authorizing Provider: Shamar Gomez MD Collected: 10/03/2020 1358 Ordering Location: [facility] Lab Received: 10/03/2020 1358 Pathologist: Jef Gloria MD Specimen: Rectal, [id number] 12:53 PM EDT [facility] Addendum This addendum is to document the provided clinical information: Rectal bleeding 12:53 PM EDT [facility] Addendum electronically signed by Jef Gloria MD on 10/12/2020 at 1253 EDT Comment:These results have b een appended to a previously final verified report. Final Diagnosis RECTAL MASS, BIOPSIES (OUTSIDE SLIDES COLLECTED 09/25/20): - INVASIVE MODERATELY DIFFERENTIATED ADENOCARCINOMA. - PER REPORT, TUMOR SHOWS INTACT STAINING FOR MSI IMMUNOHISTOCHEMISTRY (LOW PROBABILITY MSI-H RELATED TUMOR). 12:53 PM EDT [facility] at 1358 EDT Microscopic Description Tumor invades into submucosa of biopsied tissue. 12:53 PM EDT [facility] Tissue Specimen from rectum / Unknown 10/03/2020 1:58 PM EDT 10/03/2020 1:58 PM EDT us Shamar Gomez MD LAB PATHOLOGY ORDERABLES Edite d Result - Final [facility] [address] [place] [address] documented in this encounter Visit Diagnoses Diagnosis Other specified diseases of anus and rectum documented in this encounter Additional Health Concerns Assessment Noted Time A fall risk assessment has been complete d for the patient 10/03/2020 8:40 AM EDT documented as of this encounter Care Teams Dye Jig Operator Relationship Specialty Start Date End Date Constantino Barnes PCP - General 10/03/20 Padmini Ramirez MD 800 [facility] Darryl [facility] [address] [place] [address] [place] [address] Consulting Physician Medical Oncology 02/06/21 Vinny Sargent MD [address] [place] [address] Radiation Oncologist Radiation Oncology 02/19/21 Mirlande Dean, VETERINARY MICROBIOLOGIST [address] [facility] [address] [place] [address] Nurse Practitioner Internal Medicine 04/10/21 documented as of this encounter
--- OUTSIDE RECORDS SUMMARY | 2024-11-24 09:04 | XMS_ITS | Clinical Summary ---
Author Organization [facility] Address [address] [place] [address] Care Team Providers Care Pigeon Fancier Name Role Phone Constantino Barnes Primary Care Provider Padmini Nava MD Unavailable [phone] Vinny Sargent MD Unavailable [phone] Mirlande Dean APRN Unavailable Allergies No [...] EDT Anesthesia Event [facility] [address] [place] [address] Pepe William MD Freese, Brooke N, MD 08/30/2024 6:46 AM EDT - 08/30/2024 11:59 PM EDT Hospital Encounter [facility] [address] [place] [address] Shamar Gomez MD Adams, Glenda A, RN Rectal cancer ([facility]) Discharge Disposition: Home or Self Care 08/30/2024 Travel from Last 3 Months Family History 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 Relation Name Comments Cervical cancer Mother Anesthesia problems Neg Hx Malig Hyperthermia Neg Hx Relation Name Status Comments Mother Social History Tobacco Use Types Packs/Day Years Used Date Smoking Tobacco: Former Cigarettes 2 1986 Passive Smoke Exposure: Past Smokeless Tobacco: [...] EDT Appointment [facility] [address] [place] [address] 01/04/2025 9:20 AM EDT Clinical Support [facility] [address] [place] [address] 01/04/2025 9:30 AM EDT Office Visit [facility] [address] [place] [address] Mirlande Dean, STAINLESS STEEL FINISHER [address] [facility] [address] Andrews [facility] [address] [place] [address] 01/04/2025 10:30 AM EDT Office Visit [facility] [address] [place] [address] Shamar Gomez MD [address] [place] [phone] Health Maintenance Due Date Last Done Comments [facility]-Hepatitis C Screening 1950 [facility]-Medicare Annual Wellness (AWV) 1950 [facility]-Infant/Child/Adol SDOH Screenings 1950 [facility]- SDOH Screenings 1969 [facility]-Adult SDOH Screenings 1969 [facility]-Zoster Vaccines (1 of 2) 1970 CT Colonography 1996 FIT-DNA 1996 FIT 1996 FOBT 1996 [facility]-Abdominal Aortic Aneurysm (AAA) Screening 2016 [id number] Vaccine ( season) 2023 04/24/2023, 03/12/2022, 09/27/2021, Additional history exists [facility]-Depression Screening 12/01/2024 12/02/2023, 11/19 [facility]-Influenza Vaccine (#1) 12/20/202403/09, 03/11/2023, 01/31/2022, Additional history exists Colonoscopy 08/30/2027 08/30/2024, 08/26/2022 [facility]-Colorectal Cancer Screening 08/30/2027 Sigmoidoscopy 11/30/2028 12/01/2023, 02/08/2023, 12/02/2022, Additional history exists [facility]-DTaP,Tdap,and Td Vaccines [...] [employer] Implanted Type Area Bending Frame Operator Device Identifier Shelf Expiration Date Model / Serial / Lot Port Clearvue Power 8fr - [id number] - [id number] Implanted:Qty : 1 on 11/10/2020 by Renetta Florence MD at [facility] Implant N/A: Chest [id number] 02/18/2022 [id number] / [id number] / Procedures Procedure Name Priority Date/Time Associated Diagnosis Comments COLONOSCOPY Routine 08/30/2024 8:25 AM EDT Rectal cancer (CMS/HCC) FLEXIBLE SIGMOIDOSCOPY Routine 9:42 AM EDT Rectal cancer (CMS/HCC) from [...] Shamar Gomez MD Proceduralist Ariadne Marley Endo Denture Model Maker Pepe William MD Anesthesiologist Mayra Garcias, DANIEL, MICHAEL LYE BATH OPERATOR Preprocedure A history and physical has been [...] of bowel preparation was evaluated using the Peck Bowel Preparation Scale with scores of: right [...] 1 year. Recommendations Other Indication Rectal cancer (CMS/HCC) Medications See anesthesia record [...] of bowel preparation was evaluated using the Peck Bowel Preparation Scale with scores of: left colon = 2. Bowel prep was adequate. The patient experienced no blood loss. The procedure was not difficult. The patient tolerated the procedure well. Attestation I personally performed the entire procedure Specimens No specimens were documented in this log. Findings Mild, localized scarred mucosa in the rectum; no bleeding was identified us Shamar Gomez MD GI PROCEDURE ORDERABLES Final Result from Last 3 Months or Most Recently Relevant to Health Maintenance Additional Health Concerns Active Problems Noted Date Diagnosed Date Autogenerated Problem 06/29/2024 Insurance MEDICARE [facility] Care Teams Pigeon Fancier Relationship Specialty Start Date End Date Constantino Barnes PCP - General 10/03/20 Padmini Ramirez MD [address] [place] [address] Consulting Physician Medical Oncology 02/06/21 Vinny Sargent MD [address] [place] [address] Radiation Oncologist Radiation Oncology 02/19/21 Mirlande Dean APRN 800 [facility] [address] [address] Nurse Practitioner Internal Medicine 04/10/21
--- OUTSIDE RECORDS SUMMARY | 2024-11-24 09:04 | XMS_ITS | Encounter Summary ---
Author Organization [facility] Address [address] [place] [address] Care Team Providers Care Goods Layer Name Role Phone Constantino Barnes Primary Care Provider Padmini Nava MD Unavailable [phone] Vinny Sargent MD Unavailable [phone] Mirlande Dean APRN Unavailable Reason for Visit * Reason Comments Med Refill Encounter Details Date Type Department Care Team ([facility] st Contact Info) Description 01/28/2022 Refill [facility] [address] [place] [address] Padmini Ramirez MD 800 [facility] [address] [place] [address] Social History Tobacco Use Types [...] EDT Appointment [facility] [address] [place] [phone] 01/04/2025 9:20 AM EDT Clinical Support [facility] [address] [place] [address] 01/04/2025 9:30 AM EDT Office Visit [facility] [address] [place] [phone] Mirlande Dean, SUSAN 800 [facility] [address] [facility] [address] [place] [address] 01/04/2025 10:30 AM EDT Office Visit [facility] [address] [place] [phone] Shamar Gomez MD [address] [facility] [address] [place] [phone] documented as of this encounter Visit Diagnoses Not on filedocumented in this encounter Additional Health Concerns Assessment Noted Time A fall risk assessment has been complete d for the patient 12/25/2021 9:48 AM EDT documented as of this encounter Care Teams Goods Layer Relationship Specialty Start Date End Date Constantino Barnes PCP - General 10/03/20 Padmini Ramirez MD 800 [facility] [address] [facility] [address] [place] [phone] Consulting Physician Medical Oncology 02/06/21 Vinny Sargent MD 800 [facility] [address] [place] [phone] Radiation Oncologist Radiation Oncology 02/19/21 Mirlande Dean APRN 800 [facility] [address] [address] Nurse Practitioner Internal Medicine 04/10/21 documented as of this encounter
[2024-11-24] MEDS: SODIUM CHLORIDE 0.9% 10ML FLUSH SYRINGE 10 ML IV (09:15)
== END 2024-11-24 09:20 | disposition home or self-care (01) ==
LOC: INF 09:02
PROVIDERS: PCP Family Medicine; Visit Provider Internal Medicine Hematology & Oncology
DX: C20 Malignant neoplasm of rectum (principal)
CPT/HCPCS: 96523; J1642

== ENCOUNTER 2025-03-14 12:44 | Outpatient (CLI) | payer MEDICARE, OTHER, MEDICAID, SELFPAY ==
--- OUTSIDE RECORDS SUMMARY | 2025-01-18 06:17 | XMS_ITS | Encounter Summary ---
Author Organization [facility] Address [address] [place] [address] Care Team Providers Care Security Systems Manager Name Role Phone Constantino Barnes Primary Care Provider Padmini Nava MD Unavailable [phone] Vinny Sargent MD Unavailable [phone] Mirlande Dean APRN Unavailable [phone] Reason for Referral * Imaging (Routine) - Closed Specialty Diagnoses / Procedures Referred By Contac t Referred To Contact Radiology Diagnoses Rectal cancer (CMS/HCC) Procedures CT Abdomen Pelvis w IV Contrast Shamar Gomez MD [address] [address] Phone: tel: fax: Referral ID Status Reason Start Date Expiration Date Visits Re quested Visits Authorized [id number] Closed 06/29/2024 12/29/2025 1 1 * Imaging (Routine) - Closed Specialty Diagnoses / Procedures Referred By Contac t Referred To Contact Radiology Diagnoses Rectal cancer (CMS/HCC) Procedures CT Chest w IV Contrast Shamar Gomez MD [address] [facility] [address] [place] [address] Phone: tel: fax: Referral ID Status Reason Start Date Expiration Date Visits Re quested Visits Authorized [id number] Closed 06/29/2024 12/29/2025 1 1 Reason for Visit * Imaging (Routine) - Closed Specialty Diagnoses / Procedures Referred By Contac t Referred To Contact Radiology Diagnoses Rectal cancer (CMS/HCC) Procedures CT Abdomen Pelvis w IV Contrast Shamar Gomez MD [address] [facility] [address] [place] [address] Phone: tel: fax: Referral ID Status Reason Start Date Expiration Date Visits Re quested Visits Authorized [id number] Closed 06/29/2024 12/29/2025 1 1 Encounter Details Date Type Department Care Team (Latest Contact Info) Description 01/18/2025 7:17 AM EDT - 01/18/2025 11:59 PM EDT Hospital Encounter [facility] [address] [place] [address] Rectal cancer (CMS/HCC) Discharge Disposition: Home or Self Care Social History Tobacco Use Types Packs/Day Years Used Date Smoking Tobacco: Former Cigarettes 2 10 05 967 - 1986 Passive Smoke Exposure: Past Smokeless Tobacco: Current Chew Alcohol Use Standard Drinks/Week Comments Not Currently 0 (1 standard drink = 0.6 oz pur e alcohol) quit 09/2020 PHQ-2 Answer Date Recorded Patient Health Questionnaire-2 Score 0 01/18/2025 PHQ-2A Answer Date Recorded Depression Risk 0 12/03/2022 Sex and Gender Information Value Date Recorded Sex Assigned at Male 10/11/2020 1:12 PM EDT Legal Sex Male 10:05 AM EDT Gender Identity Male 10/11/2020 1:12 PM EDT Sexual Orientation Straight 10/11/2020 1: 14 PM EDT documented as of this encounter Functional Status * Over the past 2 weeks, how often have you been bothered by any of the following problems? Question Answer Date of Assessment Author Little interest or pleasure in doing things Not at all 01/18/2025 10:46 AM EDHeena Johnson Feeling down, depressed, or hopeless Not at all 01/18/2025 10:46 AM EDT Heena Sheehan Patient Health Questionnaire -2 Score 0 01/18/2025 10:46 AM EDT Heena Sheehan * Question Answer Date of Assessment Author Feeling bad about yourself - or that you are a failure or have let yourself or your family down Not at all 01/18/2025 10:46 AM EDT Heena Regalado Thoughts that you would be better off or hurting yourself in some way Not at all 01/18/2025 10:46 AM EDT Heena Sheehan * How difficult have these problems made it for you to do your work, take care of things at home, or get along with other people? Answer Date of Assessment Author Not difficult at all 01/18/2025 10:46 AM EDT Heena Regalado documented as of this encounter Medications at Time of Discharge allopurinol (Zyloprim) 100 MG tablet Take 1 tablet by mouth 2 times a day. lidocaine-priloca ine (Emla) 2.5-2.5 % cream APPLY TO PORT A CATH 30 MINUTES PRIOR TO PORT ACCESS 30 g 11/24/2024 lisinopril 10 MG tablet Take 1 tablet by mouth once daily 90 tablet 3 01/28/2022 meloxicam (Mobic) 15 MG tablet Take 1 tablet by mouth daily. 10/15/2024 documented as of this encounter Miscellaneous Notes * Aurelia Washington - 01/18/2025 7:24 AM EDT Images from the original note were not included. 1639 Caring for Yourself after Contrast Imaging If you had ORAL contrast: ? You can go back to your normal diet and activities as tolerated. ? Drink plenty of fluids, unless told otherwise. If you had IV contrast: ? You can go back to your normal diet and activities as tolerated. ? Drink plenty of fluids, unless told otherwise. ? Leave a bandage on the site for 30 minutes (where the IV was inserted or blood was drawn). If you had Intravesical (bladder) contrast: ? Return to normal diet and activity. What you need to know about delayed reaction to IV contrast What is IV Contrast? ? Contrast is a dye that is put into your body through an IV. ? It is used for imaging scans such as CT scans and MRIs. ? The contrast makes blood vessels, organs and other parts of your body show up better on the scan. What do I need to do after IV contrast? ? Drink lots of fluids. This will help flush the contrast out of your system. ? Drink 2-3 extra glasses or bottles of water within 4 hours of your scan. What is a contrast reaction? ? A contrast reaction is a bad side effect from the contrast dye. ? It is rare but it does happen. ? They can be mild - such as sneezing, itching, or hives. ? They can be severe - such as trouble breathing, throat swelling, and irregular heart beat. When do these reactions happen? ? They often happen right after the contrast is injected. ? Some happen hours after going home. Go to the nearest Emergency Department right away if you have any of these symptoms after you leavethe clinic or hospital. ? Sneezing ? Itching in your mouth, throat, eyes, ears, or skin ? Rash or hives ? Throwing up or stomach sickness ? High heart rate or ?racing? of your heart ? Feeling dizzy or woozy ? Feeling short of breath or like you can?t take a deep breath ? Feeling very anxious for no other reason It is very important that these reactions be treated. Tell the doctor or nurse that you are having a reaction to IV contrast dye. Do not ignore any sign of a reaction! All reactions must be assessed by a doctor. Call 911 if you are alone and your reaction is more than mild sneezing or itching. If you have a mild reaction, call to speak with a Radiologist, explain that you havehad a contrast reaction, as this needs to be added to your medical record. documented in this encounter Plan of Treatment Upcoming Encounters Date Type Department Care Team (Late st Contact Info) Description 07/21/2025 11:00 AM EDT Clinical Support [facility] Multidisciplinary Oncology Clinic [address] [place] [phone] 07/21/2025 11:30 AM EDT Office Visit [facility] [address] [place] [address] Mirlande Dean, BUG TRIMMER [address] [facility] Delores Andrews [facility] [address] [place] [address] 12/27/2025 7:20 AM EDT Appointment [facility] [address] [place] [address] 12/27/2025 9:30 AM EDT Office Visit [facility] [address] [place] [address] Mirlande Dean, BUG TRIMMER [address] [facility] Darryl [facility] [address] [place] [address] 12/27/2025 9:45 AM EDT Office Visit [facility] [address] [place] [address] Shamar Gomez MD [address] [facility] [address] [place] [address] documented as of this encounter Goals Goal Patient Goal Type Associated Problems Recent Progress Patient-Stated? Author Autogenerat ed Goal Care Plan Autogenerated Problem Marguerite Floridalma Mcghee documented as of this encounter Procedures Procedure Name Priority Date/Time Associated Diagnosis Comments CT ABDOMEN PELVIS W IV CONTRAST Routine 01/18/2025 8:31 AM EDT Rectal cancer (CMS/HCC) CT CHEST W IV CONTRAST Routine 01/18/2025 8:31 AM EDT Rectal cancer (CMS/HCC) documented in this encounter Results * CT Abdomen Pelvis w IV Contrast (01/18/2025 8:31 AM EDT) Anatomical Region Laterality Modality Abdomen, Pelvis Computed Tomogra phy Impressions 01/18/2025 11:03 AM EDT Chest: No evidence of disease progression. Abdomen/Pelvis: No evidence of disease progression. CRITICAL RESULT: No. COMMUNICATION: Per this written report. Drafted by Pacheco Singletary MD on 01/18/2025 8:55 AM Final report signed by Pacheco Singletary MD on 01/18/2025 11:03 AM Narrative 01/18/2025 11:03 AM EDT CLINICAL INDICATION: Rectal cancer, staging TECHNIQUE: Multiple axial CT images were obtained from thoracic inlet through pubic symphysis following administration of IV contrast, Omnipaque 300, 100 mL. Reformatted images in the coronal and sagittal planes were generated from the axial data set to facilitate diagnostic accuracy. Total DLP (Dose-Length Product): 1458.72 mGy.cm (accession [id number]), 1458.72 mGy.cm (accession [id number]) Please note: The reported value represents the total of one or more individual components during the CT acquisition on this date and at this time, and as such, the same value may appear in more than one CT report depending on the interpreting/reporting physicians. COMPARISON: 06/25/2024 CT chest abdomen pelvis FINDINGS: Chest: Lymph Nodes and Mediastinum: No suspicious thyroid nodule. No enlarged axillary or supraclavicular lymph nodes. No suspicious intrathoracic lymph nodes or mediastinal mass. Cardiovascular: No pericardial effusion. Right chest wall central venous catheter tip at the superior cavoatrial junction/superior right atrium. Coronary artery calcifications. Atherosclerotic thoracic aorta without aneurysm. Lungs and Pleura: The central airways are patent. No overtly suspicious pulmonary nodule. There are a few tiny calcified and noncalcified pulmonary nodules which are unchanged. For example, a 4 mm left upper lobe noncalcified pulmonary nodule is unchanged in size (image 137, series 4). No pleural effusions or suspicious thickening. Musculoskeletal and Body Wall: No aggressive osseous findings. Severe glenohumeral degenerative changes. Thoracic vertebral body hemangiomas. The vertebral body heights are maintained. No overtly aggressive osseous or body wall findings. Abdomen/Pelvis: Solid Abdominal Organs: Unchanged hepatic morphology with volume redistribution and visual widening. No suspicious hepatic mass. No gallbladder wall thickening. No bile or pancreatic duct dilatation. No suspicious pancreatic findings. Normal size spleen. No suspicious pancreatic mass. No adrenal nodule. Symmetric renal enhancement without suspicious mass or intracranial collecting system dilatation. Borderline caliber left ureter the level of the ureterovesical junction. GI Tract/Mesentery/Peritoneum: Similar appearance of the rectum with presumed posttreatment sequelae in the distal rectum and presacral fat. No suspicious findings in the mesorectum. Second duodenal segment diverticulum without associated inflammation. No bowel dilatation or transition point to suggest high-grade bowel obstruction. Colonic diverticulosis, most marked in the sigmoid colon, without acute diverticulitis. No suspicious mesenteric or omental findings. Normal appendix. Pelvic Viscera: Mild nonspecific circumferential bladder wall thickening, similar to prior examination. No suspicious pelvic mass. Lymph Nodes/Vasculature: Atherosclerotic abdominal aorta without aneurysm. Patent portal and hepatic veins. The splenic vein is patent. There are no enlarged lymph nodes. Free Fluid: None. Musculoskeletal and Body Wall: Vertebral body hemangiomas. Multilevel degenerative changes in the imaged spine. Bilateral L5 pars defects with grade 2 anterolisthesis of L5 on the sacrum. Degenerative changes in both hips. Procedure Note Pacheco Singletary MD - 01/18/2025 CLINICAL INDICATION: Rectal cancer, staging TECHNIQUE: Multiple axial CT images were obtained from thoracic inlet through pubicsymphysis following administration of IV contrast, Omnipaque 300, 100 mL.Reformatted images in the coronal and sagittal planes were generated fromthe axial data set to facilitate diagnostic accuracy. Total DLP (Dose-Length Product): 1458.72 mGy.cm (accession [id number]),1458.72 mGy.cm (accession [id number]) Please note: The reported valuerepresents the total of one or more individual components during the CTacquisition on this date and at this time, and as such, the same value mayappear in more than one CT report depending on the interpreting/reportingphysicians. COMPARISON: 06/25/2024 CT chest abdomen pelvis FINDINGS: Chest: Lymph Nodes and Mediastinum: No suspicious thyroid nodule. No enlargedaxillary or supraclavicular lymph nodes. No suspicious intrathoracic lymphnodes or mediastinal mass. Cardiovascular: No pericardial effusion. Right chest wall central venouscatheter tip at the superior cavoatrial junction/superior right atrium.Coronary artery calcifications. Atherosclerotic thoracic aorta withoutaneurysm. Lungs and Pleura: The central airways are patent. No overtly suspiciouspulmonary nodule. There are a few tiny calcified and noncalcifiedpulmonary nodules which are unchanged. For example, a 4 mm left upper lobenoncalcified pulmonary nodule is unchanged in size (image 137, series 4).No pleural effusions or suspicious thickening. Musculoskeletal and Body Wall: No aggressive osseous findings. Severeglenohumeral degenerative changes. Thoracic vertebral body hemangiomas.The vertebral body heights are maintained. No overtly aggressive osseousor body wall findings. Abdomen/Pelvis: Solid Abdominal Organs: Unchanged hepatic morphology with volumeredistribution and visual widening. No suspicious hepatic mass. Nogallbladder wall thickening. No bile or pancreatic duct dilatation. Nosuspicious pancreatic findings. Normal size spleen. No suspiciouspancreatic mass. No adrenal nodule. Symmetric renal enhancement withoutsuspicious mass or intracranial collecting system dilatation. Borderlinecaliber left ureter the level of the ureterovesical junction. GI Tract/Mesentery/Peritoneum: Similar appearance of the rectum withpresumed posttreatment sequelae in the distal rectum and presacral fat. Nosuspicious findings in the mesorectum. Second duodenal segmentdiverticulum without associated inflammation. No bowel dilatation ortransition point to suggest high-grade bowel obstruction. Colonicdiverticulosis, most marked in the sigmoid colon, without acutediverticulitis. No suspicious mesenteric or omental findings. Normalappendix. Pelvic Viscera: Mild nonspecific circumferential bladder wall thickening,similar to prior examination. No suspicious pelvic mass. Lymph Nodes/Vasculature: Atherosclerotic abdominal aorta without aneurysm.Patent portal and hepatic veins. The splenic vein is patent. There are noenlarged lymph nodes. Free Fluid: None. Musculoskeletal and Body Wall: Vertebral body hemangiomas. Multileveldegenerative changes in the imaged spine. Bilateral L5 pars defects withgrade 2 anterolisthesis of L5 on the sacrum. Degenerative changes in bothhips. IMPRESSION: Chest: No evidence of disease progression. Abdomen/Pelvis: No evidence of disease progression. CRITICAL RESULT: No. COMMUNICATION: Per this written report. Drafted by Pacheco Singletary MD on 01/18/2025 8:55 AM Final report signed by Pacheco Singletary MD on 01/18/2025 11:03 AM us Shamar Gomez MD IMG CT PROCEDURES Final Result * CT Chest w IV Contrast (01/18/2025 8:31 AM EDT) Anatomical Region Laterality Modality Chest Computed Tomogra phy Impressions 01/18/2025 11:03 AM EDT Chest: No evidence of disease progression. Abdomen/Pelvis: No evidence of disease progression. CRITICAL RESULT: No. COMMUNICATION: Per this written report. Drafted by Pacheco Singletary MD on 01/18/2025 8:55 AM Final report signed by Pacheco Singletary MD on 01/18/2025 11:03 AM Narrative 01/18/2025 11:03 AM EDT CLINICAL INDICATION: Rectal cancer, staging TECHNIQUE: Multiple axial CT images were obtained from thoracic inlet through pubic symphysis following administration of IV contrast, Omnipaque 300, 100 mL. Reformatted images in the coronal and sagittal planes were generated from the axial data set to facilitate diagnostic accuracy. Total DLP (Dose-Length Product): 1458.72 mGy.cm (accession [id number]), 1458.72 mGy.cm (accession [id number]) Please note: The reported value represents the total of one or more individual components during the CT acquisition on this date and at this time, and as such, the same value may appear in more than one CT report depending on the interpreting/reporting physicians. COMPARISON: 06/25/2024 CT chest abdomen pelvis FINDINGS: Chest: Lymph Nodes and Mediastinum: No suspicious thyroid nodule. No enlarged axillary or supraclavicular lymph nodes. No suspicious intrathoracic lymph nodes or mediastinal mass. Cardiovascular: No pericardial effusion. Right chest wall central venous catheter tip at the superior cavoatrial junction/superior right atrium. Coronary artery calcifications. Atherosclerotic thoracic aorta without aneurysm. Lungs and Pleura: The central airways are patent. No overtly suspicious pulmonary nodule. There are a few tiny calcified and noncalcified pulmonary nodules which are unchanged. For example, a 4 mm left upper lobe noncalcified pulmonary nodule is unchanged in size (image 137, series 4). No pleural effusions or suspicious thickening. Musculoskeletal and Body Wall: No aggressive osseous findings. Severe glenohumeral degenerative changes. Thoracic vertebral body hemangiomas. The vertebral body heights are maintained. No overtly aggressive osseous or body wall findings. Abdomen/Pelvis: Solid Abdominal Organs: Unchanged hepatic morphology with volume redistribution and visual widening. No suspicious hepatic mass. No gallbladder wall thickening. No bile or pancreatic duct dilatation. No suspicious pancreatic findings. Normal size spleen. No suspicious pancreatic mass. No adrenal nodule. Symmetric renal enhancement without suspicious mass or intracranial collecting system dilatation. Borderline caliber left ureter the level of the ureterovesical junction. GI Tract/Mesentery/Peritoneum: Similar appearance of the rectum with presumed posttreatment sequelae in the distal rectum and presacral fat. No suspicious findings in the mesorectum. Second duodenal segment diverticulum without associated inflammation. No bowel dilatation or transition point to suggest high-grade bowel obstruction. Colonic diverticulosis, most marked in the sigmoid colon, without acute diverticulitis. No suspicious mesenteric or omental findings. Normal appendix. Pelvic Viscera: Mild nonspecific circumferential bladder wall thickening, similar to prior examination. No suspicious pelvic mass. Lymph Nodes/Vasculature: Atherosclerotic abdominal aorta without aneurysm. Patent portal and hepatic veins. The splenic vein is patent. There are no enlarged lymph nodes. Free Fluid: None. Musculoskeletal and Body Wall: Vertebral body hemangiomas. Multilevel degenerative changes in the imaged spine. Bilateral L5 pars defects with grade 2 anterolisthesis of L5 on the sacrum. Degenerative changes in both hips. Procedure Note Pacheco Singletary MD - 01/18/2025 CLINICAL INDICATION: Rectal cancer, staging TECHNIQUE: Multiple axial CT images were obtained from thoracic inlet through pubicsymphysis following administration of IV contrast, Omnipaque 300, 100 mL.Reformatted images in the coronal and sagittal planes were generated fromthe axial data set to facilitate diagnostic accuracy. Total DLP (Dose-Length Product): 1458.72 mGy.cm (accession [id number]),1458.72 mGy.cm (accession [id number]) Please note: The reported valuerepresents the total of one or more individual components during the CTacquisition on this date and at this time, and as such, the same value mayappear in more than one CT report depending on the interpreting/reportingphysicians. COMPARISON: 06/25/2024 CT chest abdomen pelvis FINDINGS: Chest: Lymph Nodes and Mediastinum: No suspicious thyroid nodule. No enlargedaxillary or supraclavicular lymph nodes. No suspicious intrathoracic lymphnodes or mediastinal mass. Cardiovascular: No pericardial effusion. Right chest wall central venouscatheter tip at the superior cavoatrial junction/superior right atrium.Coronary artery calcifications. Atherosclerotic thoracic aorta withoutaneurysm. Lungs and Pleura: The central airways are patent. No overtly suspiciouspulmonary nodule. There are a few tiny calcified and noncalcifiedpulmonary nodules which are unchanged. For example, a 4 mm left upper lobenoncalcified pulmonary nodule is unchanged in size (image 137, series 4).No pleural effusions or suspicious thickening. Musculoskeletal and Body Wall: No aggressive osseous findings. Severeglenohumeral degenerative changes. Thoracic vertebral body hemangiomas.The vertebral body heights are maintained. No overtly aggressive osseousor body wall findings. Abdomen/Pelvis: Solid Abdominal Organs: Unchanged hepatic morphology with volumeredistribution and visual widening. No suspicious hepatic mass. Nogallbladder wall thickening. No bile or pancreatic duct dilatation. Nosuspicious pancreatic findings. Normal size spleen. No suspiciouspancreatic mass. No adrenal nodule. Symmetric renal enhancement withoutsuspicious mass or intracranial collecting system dilatation. Borderlinecaliber left ureter the level of the ureterovesical junction. GI Tract/Mesentery/Peritoneum: Similar appearance of the rectum withpresumed posttreatment sequelae in the distal rectum and presacral fat. Nosuspicious findings in the mesorectum. Second duodenal segmentdiverticulum without associated inflammation. No bowel dilatation ortransition point to suggest high-grade bowel obstruction. Colonicdiverticulosis, most marked in the sigmoid colon, without acutediverticulitis. No suspicious mesenteric or omental findings. Normalappendix. Pelvic Viscera: Mild nonspecific circumferential bladder wall thickening,similar to prior examination. No suspicious pelvic mass. Lymph Nodes/Vasculature: Atherosclerotic abdominal aorta without aneurysm.Patent portal and hepatic veins. The splenic vein is patent. There are noenlarged lymph nodes. Free Fluid: None. Musculoskeletal and Body Wall: Vertebral body hemangiomas. Multileveldegenerative changes in the imaged spine. Bilateral L5 pars defects withgrade 2 anterolisthesis of L5 on the sacrum. Degenerative changes in bothhips. IMPRESSION: Chest: No evidence of disease progression. Abdomen/Pelvis: No evidence of disease progression. CRITICAL RESULT: No. COMMUNICATION: Per this written report. Drafted by Pacheco Singletary MD on 01/18/2025 8:55 AM Final report signed by Pacheco Singletary MD on 01/18/2025 11:03 AM Shamar Gomez MD IMG CT PROCEDURES Final Result documented in this encounter Visit Diagnoses Diagnosis Rectal cancer (CMS/HCC) Malignant neoplasm of rectum documented in this encounter Administered Medications Inactive Administered Medications - up to 3 most recent administrations Medication Order MAR Action Action Date Dose Rate Site iohexol (OMNIPaque) 300 MG/ML injection 100 mL 100 mL, Intravenous, Once in imaging, 1 dose, Starting on 01/18/25 at 0724, Until 01/18/25 at 0825, Routine, Imaging Protocol Orders Given 01/18/2025 8:25 AM EDT 100 mL iohexol (OMNIPaque) 9 MG/ML oral contrast 500 mL 500 mL, Oral, Once in imaging, 1 dose, Starting on 01/18/25 at 0724, Until 01/18/25 at 0803, Routine, Imaging Protocol Orders Given 01/18/2025 8:03 AM EDT 500 mL documented in this encounter Additional Health Concerns Active Problems Noted Date Diagnosed Date Autogenerated Problem 06/29/2024 Assessment Noted Time A fall risk assessment has been complete d for the patient 01/18/2025 10:45 AM EDT A Body Mass Index follow-up plan has been documented for the patient 01/18/2025 1:18 PM EDT documented as of this encounter Care Teams Security Systems Manager Relationship Specialty Start Date End Date Constantino Barnes PCP - General 10/03/20 Padmini Ramirez MD [address] [place] [address] Consulting Physician Medical Oncology 02/06/21 Vinny Sargent MD [address] [place] [address] Radiation Oncologist Radiation Oncology 02/19/21 Mirlande Dean APRN [address] [place] [address] Nurse Practitioner Internal Medicine 04/10/21 documented as of this encounter
--- OUTSIDE RECORDS SUMMARY | 2025-01-18 09:30 | XMS_ITS | Encounter Summary ---
Author Organization [facility] Address [address] [place] [address] Care Team Providers Care Turkey Roll Maker Name Role Phone Constantino Barnes Primary Care Provider Padmini Nava MD Unavailable [phone] Vinny Sargent MD Unavailable [phone] Mirlande Dean APRN Unavailable [phone] Reason for Referral * Imaging (Routine) - Pending Review Specialty Diagnoses / Procedures Referred By Contac t Referred To Contact Radiology Diagnoses Rectal cancer (CMS/HCC) Procedures CT Abdomen Pelvis w IV Contrast Shamar Gomez MD [address] [address] Phone: tel: fax: Referral ID Status Reason Start Date Expiration Date V isits Requested Visits Authorized [id number] Pending Review 01/18/2025 07/20/2026 1 1 * Imaging (Routine) - Pending Review Specialty Diagnoses / Procedures Referred By Contac t Referred To Contact Radiology Diagnoses Rectal cancer (CMS/HCC) Procedures CT Chest w IV Contrast Shamar Gomez MD [address] [address] Phone: tel: fax: Referral ID Status Reason Start Date Expiration Date V isits Requested Visits Authorized [id number] Pending Review 01/18/2025 07/20/2026 1 1 Reason for Visit * Reason Comments Follow-up Rectal cancer Encounter Details Date Type Department Care Team (Latest Contact Info) Description 01/18/2025 10:30 AM EDT Office Visit [facility] Multidisciplinary Oncology Clinic [address] [place] [address] Shamar Gomez MD [address] [place] [address] Rectal cancer (CMS/HCC) (Primary Dx) Social History Tobacco Use Types Packs/Day Years [...] Sign Reading Time Taken Comments Blood Pressure 133/86 01/18/2025 10:41 AM EDT Pulse 70 01/18/2025 10:41 AM EDT Temperature 36.4 C (97.6 F) 01/18/2025 10:41 AM EDT Respiratory Rate 16 01/18/2025 10:4 1 AM EDT Oxygen Saturation 99% 01/18/2025 10: 41 AM EDT Inhaled Oxygen Concentration - - Weight 90.7 kg (199 lb 15.3 oz) 025 10:41 AM EDT Height 167.6 cm (5' 5.98 ) 01/18/2025 1 0:41 AM EDT Body Mass Index 32.29 01/18/2025 10:41 AM EDT documented in this encounter Functional Status * Over the past 2 weeks, how often have you been bothered by any of the following problems? Question Answer Date of Assessment Author Little interest or pleasure in doing things Not at all 01/18/2025 10:46 AM ANNAT Heena Sheehan Feeling down, depressed, or hopeless Not at [...] Heena Regalado documented as of this encounter Miscellaneous Notes * Progress Notes - Israel Prince - 01/18/2025 10:30 AM EDT [facility] Colon & Rectal Surgery 01/18/2025 Chief Complaint: No primary diagnosis found. HPI: Willam Hong is a 74 y.o. male who presents to the clinic with his Elena for a 6m f/u with CT CAP. He feels well overall and has good appetite, he has no concerns or complaints. Denies changes in bowel habits, diarrhea, constipation, bloody stools or urine, and abdominal pain. Also denies SOB and chest pain. ROS: A complete 14 point review of systems was done with the patient. These are all negative with the exception of what is noted in the HPI. Past 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: has a past medical history of Arthritis, COVID-19 (2022), Dental disease, Exercise tolerance finding (05/07/2022), Gout, Hematochezia (10/03/20), History of chemotherapy (02/2021), History of radiation therapy (02/2021), HLD (hyperlipidemia), HTN (hypertension), Motion sickness, and Rectal adenocarcinoma (CMS/HCC) (2020). Past Surgical History: has a past surgical history that includes Colonoscopy and Other surgical history. Family History: family history includes Cervical cancer in his mother. No history of colorectal neoplasms. No history of IBD. History on file reviewed and it is otherwise noncontributory. Social History: Social History[1] Physical Exam: Vitals: 01/18/25 1041 BP: 133/86 Pulse: 70 Resp: 16 Temp: 36.4 ??C (97.6 ??F) SpO2: 99% Body mass index is 32.29 kg/m??. GEN: NAD HEENT: NCAT, EOMI RESP: Equal bilateral chest rise, normal work of breathing CV: RRR, appears well perfused ABD: Soft, nontender, nondistended EXT: No gross deformities MSK: Full ROM in BL UE NEURO: No focal deficits, AOx3 PSYCH: Normal mood and affect PERIANAL/PERINEUM: n/a GAGANDEEP: n/a LABORATORIES AND IMAGING STUDIES: I personally reviewed all the laboratory examinations and imagingstudies below: Lab Results Component Value Date WBC 4.65 06/29/2024 RBC 3.91 (L) 06/29/2024 HGB 12.8 (L) 06/29/2024 HCT 38.7 (L) 06/29/2024 MCV 99 (H) 06/29/2024 MCHC 33.1 06/29/2024 RDW 13.8 06/29/2024 PLT 209 06/29/2024 MPV 11.3 06/29/2024 Lab Results Component Value Date BUN 19 06/29/2024 CL 108 (H) 06/29/2024 NA 142 06/29/2024 K 4.2 06/29/2024 TP 6.7 06/29/2024 AST 23 06/29/2024 ALT 27 06/29/2024 Lab Results Component Value Date CEA 3.2 06/29/2024 CEA 2.6 12/02/2023 CEA 2.3 06/03/2023 CEA 3.4 03/04/2023 CEA 2.5 12/03/2022 I visualized the recent imaging and discussed the current radiology findings with the patient in detail and answered all questions. === 06/25/24 === CT ABDOMEN PELVIS W IV CONTRAST - Narrative - CLINICAL INDICATION: Rectal cancer, staging TECHNIQUE: Multiple axial CT images were obtained from thoracic inlet through pubic symphysis following administration of IV contrast, Omnipaque 300, 100 mL. Reformatted images in the coronal and sagittal planes were generated from the axial data set to facilitate diagnostic accuracy. Total DLP (Dose-Length Product): 970.02 mGy.cm (accession [id number]), 970.02 mGy.cm (accession [id number]). Please note: The reported value represents the total of one or more individual components during the CT acquisition on this date and at this time, and as such, the same value may appear in more than one CT report depending on the interpreting/reporting physicians. COMPARISON: CT dated 12/02/2023. FINDINGS: Chest: Lymph Nodes and Mediastinum: No lymphadenopathy by CT size criteria. No mediastinal mass lesions. No suspicious thyroid findings. Cardiovascular: Mild cardiomegaly. No pericardial effusion. Thoracic great vessels are patent. Leftport catheter with the tip terminating at the right atrium. Lungs and Pleura: The central airways are patent. No suspicious or sizable lung nodules to suggest metastatic disease. Similar subpleural opacities in the bilateral lower lobes likely represent atelectatic changes. No pleural effusions or suspicious thickening. Musculoskeletal and Body Wall: No clearly aggressive bone lesions. T9 vertebral body hemangioma. Mild degenerative changes. Abdomen/Pelvis: Liver, Gallbladder, Biliary Tract: No suspicious hepatic lesion. Unremarkable gallbladder. No bile duct dilatation. Spleen: No splenomegaly. Pancreas: A duodenal diverticulum measuring about 26 x 33 mm again noted. No suspicious pancreatic lesion. No duct dilatation. No acute pathology. Adrenal Glands: Unremarkable. Kidneys: No hydronephrosis or obstructing nephrolithiasis. No suspicious renal lesion. Mild nonspecific perinephric stranding. Lymph Nodes: No lymphadenopathy by CT size criteria. Vasculature: The aortoiliac vasculature is normal in caliber and patent throughout demonstrating moderate atherosclerotic changes. GI Tract/Mesentery/Peritoneum: The large and small bowel appear normal in caliber. Duodenal diverticula noted in the proximal and distal duodenum. No evidence of inflammatory change. Colonic diverticulosis without acute inflammation. No suspicious peritoneal/mesenteric findings. Pelvic Viscera: Underdistended urinary bladder with mild bladder wall thickening likely related to underdistention and/or obstructive uropathy. Tiny bladder diverticulum noted at the inferior aspect.Borderline enlarged prostate. No suspicious pelvic mass lesions. Free Fluid: No ascites. Musculoskeletal and Body Wall: No clearly aggressive bone lesions. Multilevel degenerative changes with mild anterolisthesis at L5-S1. - Impression - Chest: No evidence of disease progression. Abdomen/Pelvis: No evidence of disease progression. CRITICAL RESULT: No. COMMUNICATION: Per this written report. Drafted by Tomi Rowland MD on 06/25/2024 1:53 PM Final report signed by Tomi Rowland MD on 06/25/2024 2:44 PM Assessment/Plan #Hx of rectal cancer - Today's imaging report showed no evidence of disease progression. - Repeat CT CAP in 1 year - Repeat colonoscopy in 2027 Problem List Items Addressed This Visit None Israel Prince [1] Social History Tobacco Use Smoking status: Former Current packs/day: 0.00 Average packs/day: 2.0 packs/day for 20.0 years (40.0 ttl pk-yrs) Types: Cigarettes Start date: 1966 Quit date: 1986 Years since quittin.7 Passive exposure: Past Smokeless tobacco: Current Types: Chew Vaping Use Vaping status: Never Used Substance Use Topics Alcohol use: Not Currently Comment: quit 09/2020 Drug use: Never Cosigned by Shamar Gomez MD at 01/18/2025 12:11 PM EDT Associated attestation - Shamar Gomez MD - 01/18/2025 12:11 PM EDT I saw and evaluated the patient with the medical/CARROT TIER/PA student. I discussed the case with the medical/CARROT TIER/PA student and agree with the findings and plan as documented. I personally performed the Examand Medical Decision Making. Mr. Hong is a 74YM with history of rectal cancer. Complete response after [facility]. Surveillance to date without recurrence. Last colonoscopy in August [address] TAP without recurrent or metastatic disease. Doing well. PLAN FOLLOWS: RTC in [address] TAP. Surveillance colonoscopy in August 2027. documented in this encounter Plan of Treatment Upcoming Encounters Date Type Department Care Team (Late st Contact Info) Description 07/21/2025 11:00 AM EDT Clinical Support [facility] Multidisciplinary Oncology Clinic [address] [place] [phone] 07/21/2025 11:30 AM EDT Office Visit [facility] Multidisciplinary Oncology Clinic [address] [place] [phone] Mirlande Dean, SUSAN [address] [phone] 12/27/2025 7:20 AM EDT Appointment [facility] [address] [place] [address] 12/27/2025 9:30 AM EDT Office Visit [facility] Multidisciplinary Oncology Clinic [address] [place] [phone] Mirlande Dean, SUSAN [address] [phone] 12/27/2025 9:45 AM EDT Office Visit [facility] Multidisciplinary Oncology Clinic [address] [place] [address] Shamar Gomez MD [address] [facility] [address] [place] [phone] Scheduled Orders Name Type Priority Associated Diagnoses Orde r Schedule CT Chest w IV Contrast Imaging Routine Rectal cancer (CMS/HCC) Expected: 01/24/2026 (Approximate), Expires: 07/22/2026 CT Abdomen Pelvis w IV Contrast Imaging Routine Rectal cancer (CMS/HCC) Expected: 01/24/2026 (Approximate), Expires: 07/22/2026 documented as of this encounter Goals Goal Patient Goal Type Associated Problems Recent Progress Patient-Stated? Author Autogenerat ed Goal Care Plan Autogenerated Problem Floridalma [place] documented as of this encounter Visit Diagnoses Diagnosis Rectal cancer (CMS/HCC)- Primary Malignant neoplasm of rectum documented in this encounter Additional Health Concerns Active Problems Noted Date Diagnosed Date Autogenerated Problem 06/29/2024 Assessment Noted Time A fall risk assessment has been complete d for the patient 01/18/2025 10:45 AM EDT A Body Mass Index follow-up plan has been documented for the patient 01/18/2025 1:18 PM EDT documented as of this encounter Care Teams Turkey Roll Maker Relationship Specialty Start Date End Date Constantino Barnes PCP - General 10/03/20 Padmini Ramirez MD [address] [facility] [address] [place] [address] Consulting Physician Medical Oncology 02/06/21 Vinny Sargent MD [address] [place] [address] Radiation Oncologist Radiation Oncology 02/19/21 Mirlande Dean APRN [address] [place] [address] Nurse Practitioner Internal Medicine 04/10/21 documented as of this encounter
--- OUTSIDE RECORDS SUMMARY | 2025-01-18 10:00 | XMS_ITS | Encounter Summary ---
Author Organization [facility] Address [address] [place] [address] Care Team Providers Care Lithographic Stripper Name Role Phone Constantino Barnes Primary Care Provider Padmini Nava MD Unavailable [phone] Vinny Sargent MD Unavailable [phone] Mirlande Dean APRN Unavailable [phone] Encounter Details Date Type Department Care Team (Latest Contact Info) Description 01/18/2025 11:00 AM EDT Clinical Support [facility] Multidisciplinary Oncology Clinic [address] [place] [address] Alysha Caban, RN None None Rectal cancer (CMS/HCC) Social History Tobacco Use Types Packs/Day [...] things Not at all 01/18/2025 10:46 AM EDT Heena Sheehan Feeling down, depressed, or hopeless [...] encounter Miscellaneous Notes * Progress Notes - Alysha Caban, RN - 01/18/2025 11:00 AM EDT Port labs drawn documented in this encounter Plan of Treatment Upcoming Encounters Date Type Department Care Team (Late st Contact Info) Description 07/21/2025 11:00 AM EDT Clinical Support [facility] [address] [place] [address] 07/21/2025 11:30 AM EDT Office Visit [facility] [address] [place] [address] Mirlande Dean, RAW SHELLFISH PREPARER 800 [facility] Delores Zelayason [address] [address] 12/27/2025 7:20 AM EDT Appointment [facility]iology [address] [place] [address] 12/27/2025 9:30 AM EDT Office Visit [facility] [address] [place] [address] Mirlande Dean, SUSAN 800 [facility] Del[address] [place] [address] 12/27/2025 9:45 AM EDT Office Visit [facility] [address] [place] [address] Shamar Gomez MD [address] [facility] [address] [place] [address] documented as of this encounter Goals Goal Patient Goal Type Associated Problems Recent Progress Patient-Stated? Author Autogenerat ed Goal Care Plan Autogenerated Problem Floridalma [place] documented as of this encounter Procedures Procedure Name Priority Date/Time Associated Diagnosis Comments SIGNATERA ONLY Routine 01/18/2025 10:40 AM EDT Rectal cancer (CMS/HCC) CBC WITH AUTO DIFFERENTIAL Routine 01/18/2025 10:40 AM EDT Rectal cancer (CMS/HCC) CEA, SERUM Routine 01/18/2025 10:40 AM EDT Rectal cancer (CMS/HCC) COMPREHENSIVE METABOLIC PANEL, PLASMA Routine 01/18/2025 10:40 AM EDT Rectal cancer (CMS/HCC) documented in this encounter Results * Signatera Only Single Draw (01/18/2025 10:40 AM EDT) [facility] SIGNATERA TEST RESULT NEGATIVE 11/2024 9:07 PM EDT [facility] SIGNATERA MTM READOUT 0 MTM/ml 11/2024 9:07 PM EDT [facility] Comment: Please see the attached PDF for more information. Limitations Signatera is a personalized, tumor-informed test for the longitudinal detection of circulating tumor DNA (ctDNA). Interval testing is recommended for all patients. Studies have demonstrated that when ctDNA is detected (Signatera Positive) following surgery or definitive treatment, the risk for disease relapse is high without further treatment. Conversely, when ctDNA is not detected, the patient may be considered at lower risk for relapse. For those with multiple timepoints, upward trending ctDNA levels are suggestive of increasing tumor burden (1,2). For a single time point in isolation, the absolute MTM/mL value has no known clinical significance and should not be compared across patients. Test results should be interpreted in context of other clinicopathological features. ctDNA detection sensitivity may be limited due to blood collection within two weeks of surgery and while the patient is on therapy. Signatera is a quantitative test and reports in units of mean tumor molecules per ml (MTM/mL), which is comprised of three measured components (plasma volume, cell free DNA (cfDNA) concentration, and Variant Allele Frequency (VAF)). The MTM/mL number will be qualified if any measured component falls outside the analytical measurement range for that component. The analytical sensitivity is 95% at the limit of detection (0.3 MTM/mL). Results obtained are specific to the assessed time point. A negative test result does not definitively indicate the absence of cancer. This test is not designed to detect or report germline variation, nor does it infer hereditary cancer risk for the patient. Each Signatera assay is designed to a single tumor for a given patient. At this time, multiple personalized Signatera assays cannot be developed for the same patient. This test is designed to detect ctDNA from the assayed tumor only; new primary tumors will not be detected. There is a low risk that a new primary may share a variant that could interfere with the Signatera test. Testing cannot be performed in patients who are , have a history of bone marrow transplant, or history of blood transfusion within three months. This test is expected to have limited sensitivity in cancer types such as GIST, renal cell carcinomas, primary brain tumors, and lymphoma due to limited ctDNA shed. 1 Naomie BOLAÑOS, Santi BROOKS, Rojelio RO, et al. Personalized circulating tumor DNA analysis as a predictive biomarker in solid tumor patients treated with pembrolizumab. Nature Cancer. 2020;1(9):873-881. 2 Brent FUENTES, Sylvester N, et al., Circulating Tumor DNA in Stage III Colorectal Cancer, beyond Minimal Residual Disease Detection, toward Assessment of Adjuvant Therapy Efficacy and Clinical Behavior of Recurrences. Clin Cancer Res. 202; 28(3):507-517. Methodology FFPE samples are assessed by a pathologist to identify tumor margins and percent tumor content. Tumor DNA is extracted using Qiagen AllPrep. Whole genomic DNA is isolated from peripheral blood using QIAamp DNA Blood Mini Kit to provide a baseline DNA sequence. Circulating tumor DNA (ctDNA) is extracted from plasma derived from whole blood samples collected in cell-free DNA blood tubes (Soccer Managerck) using the QIAsymphony automated or manual extraction method (Qiagen). Using a proprietary algorithm, putative, clonal variants present in the tumor but absent in the germline DNA are identified to design the customized multiplex PCR assay. Whole-exome sequencing is performed on tumor and peripheral blood DNA using Vapremap library kit (Produce Run) with a custom Vokle exome capture (Unata). Using a proprietary algorithm, putative clonal variants present in the tumor but absent in the germline DNA are identified to design the customized multiplex PCR assay. Circulating tumor DNA is extracted from plasma collected in Streck tubes using [employer] proprietary methods. The customized PCR assays are run to detect presence or absence of these variants within circulating plasma. A patient's plasma sample is considered ctDNA positive when at least two individual-specific tumor variants are detected. When fewer than two individual-specific tumor variants are observed, a negative result is issued. Tumor variation outside of the individual, tumor specific variants is not assessed. Pathology services and whole exome sequencing are performed at [facility] (CLIA ID# [id number]) [address] [place] [address]. Disclaimer The extraction, library preparation, and sequencing for this test were performed by [facility] [id number] [place] [address] A [address], [place] [address] (CLIA ID [id number]). The data analysis and reporting for this test were performed by [facility] [address] [facility] [facility] [address], [place] [address] (CLIA ID [id number]). This test was developed and its performance characteristics determined by [facility]. The test has not been cleared or approved by the U.S. Food and Drug Administration (FDA). CAP accredited, ISO 35525 certified, and CLIA certified. Pathology services and whole exome sequencing for this test were performed by [facility] [address] [place] [address] (CLIA ID [id number]). 2020 [employer]. All Rights Reserved. Blood Venous blood specimen / Unknown (Port) Long-term Catheter / Unknown 01/18/2025 10:40 AM EDT 01/18/2025 10:42 AM EDT us Mirlande Dean APRN [facility] BLOOD ORDERABLES Final Result [facility] [address] [place] [address], * Comprehensive Metabolic Panel, Plasma (01/18/2025 10:40 AM EDT) Glucose, Plasma 85 74 - 99 mg/dL 01/18/2025 11:52 AM EDT [facility] BUN, Plasma 15 8 - 23 mg/dL 01/18/2025 11:52 AM EDT [facility] Creatinine, Plasma 0.73 0.70 - 1.20 mg/dL 01/18/2025 11:52 AM EDT [facility] BUN/Creatinine Ratio 21 01/18/2025 11:52 AM EDT [facility] Sodium, Plasma 139 136 - 145 mmol/L 01/18/2025 11:52 AM EDT [facility] Potassium, Plasma 4.2 3.6 - 4.9 mmol/L 01/18/2025 11:52 AM EDT [facility] Chloride, Plasma 107 97 - 107 mmol/L 01/18/2025 11:52 AM EDT [facility] CO2, Plasma 22 22 - 29 mmol/L 01/18/2025 11:52 AM EDT [facility] Anion Gap 10 6 - 16 mmol/L 01/18/2025 11:52 AM EDT [facility] Total Calcium, Plasma 9.1 8.9 - 10.2 mg/dL 01/18/2025 11:52 AM EDT [facility] Total Protein 6.7 6.3 - 7.9 g/dL 01/18/2025 11:52 AM EDT [facility] Albumin, Plasma 4.2 3.5 - 5.2 g/dL 01/18/2025 11:52 AM EDT [facility] AST, Plasma 28 10 - 50 U/L 01/18/2025 11:52 AM EDT [facility] ALT, Plasma 27 10 - 50 U/L 01/18/2025 11:52 AM EDT [facility] Alkaline Phosphatase, Plasma 77 40 - 115 U/L 01/18/2025 11:52 AM EDT [facility] Total Bilirubin, Plasma 0.6 0.2 - 1.1 mg/dL 01/18/2025 11:52 AM EDT [facility] eGFRcr 96.1 mL/min/1.7 3m*2 01/18/2025 11:52 AM EDT [facility] Comment:Reported eGFRcr in m L/min/1.73m2 is based the CKD-EPI 2020 equation that does not use a race coefficient. Blood Blood sample taken from central line / Unknown (Port) Long-term Catheter / Unknown 01/18/2025 10:40 AM EDT 01/18/2025 11:18 AM EDT us Mirlande Dean APRN LAB BLOOD ORDERABLES Final Re sult [facility] [address] [place] [address] * (ABNORMAL) CBC and Differential (01/18/2025 10:40 AM EDT) WBC Count 4.12 3.70 - 10.30 10*3/uL LAB HEMATOLOGY METHOD 01/18/2025 11:25 AM EDT [facility] RBC Count 3.73(L) 4.60 - 6.10 10*6/uL LAB HEMATOLOGY METHOD 01/18/2025 11:25 AM EDT [facility] HGB 12.4(L) 13.7 - 17.5 g/dL LAB HEMATOLOGY METHOD 01/18/2025 11:25 AM EDT [facility] HCT 36.9(L) 40.0 - 51.0 % LAB HEMATOLOGY METHOD 01/18/2025 11:25 AM EDT [facility] Platelet Count 198 155 - 369 10*3/uL LAB HEMATOLOGY METHOD 01/18/2025 11:25 AM EDT [facility] MCV 99(H) 79 - 98 fL LAB HEMATOLOGY METHOD 01/18/2025 11:25 AM EDT [facility] MCH 33.2(H) 26.0 - 32.0 pg LAB HEMATOLOGY METHOD 01/18/2025 11:25 AM EDT [facility] MCHC 33.6 30.7 - 35.5 g/dL LAB HEMATOLOGY METHOD 01/18/2025 11:25 AM EDT [facility] RDW 13.7 11.5 - 14.5 % LAB HEMATOLOGY METHOD 01/18/2025 11:25 AM EDT [facility] MPV 10.9 8.8 - 12.5 fL LAB HEMATOLOGY METHOD 01/18/2025 11:25 AM EDT [facility] nRBC 0.0 <=0.0 per 100 WBCs LAB HEMATOLOGY METHOD 01/18/2025 11:25 AM EDT [facility] Differential Type Automated LAB HEMATOLOGY METHOD 01/18/2025 11:25 AM EDT [facility] Neutrophils % 64 % LAB HEMATOLOGY METHOD 01/18/2025 11:25 AM EDT [facility] Lymphocytes % 23 % LAB HEMATOLOGY METHOD 01/18/2025 11:25 AM EDT [facility] Monocytes % 9 % LAB HEMATOLOGY METHOD 01/18/2025 11:25 AM EDT [facility] Eosinophils % 2 % LAB HEMATOLOGY METHOD 01/18/2025 11:25 AM EDT [facility] Basophils % 1 % LAB HEMATOLOGY METHOD 01/18/2025 11:25 AM EDT [facility] Immature Granulocytes % 1 % LAB HEMATOLOGY METHOD 01/18/2025 11:25 AM EDT [facility] Neutrophils Absolute 2.68 1.60 - 6.10 10*3/uL LAB HEMATOLOGY METHOD 01/18/2025 11:25 AM EDT [facility] Lymphocytes Absolute 0.95(L) 1.20 - 3.90 10*3/uL LAB HEMATOLOGY METHOD 01/18/2025 11:25 AM EDT [facility] Monocytes Absolute 0.35 0.30 - 0.90 10*3/uL LAB HEMATOLOGY METHOD 01/18/2025 11:25 AM EDT [facility] Eosinophils Absolute 0.09 0.00 - 0.50 10*3/uL LAB HEMATOLOGY METHOD 01/18/2025 11:25 AM EDT [facility] Basophils Absolute 0.03 0.00 - 0.10 10*3/uL LAB HEMATOLOGY METHOD 01/18/2025 11:25 AM EDT [facility] Immature Granulocytes Absolute 0.02 0.00 - 0.06 10*3/uL LAB HEMATOLOGY METHOD 01/18/2025 11:25 AM EDT [facility] Blood Blood sample taken from central line / Unknown (Port) Long-term Catheter / Unknown 01/18/2025 10:40 AM EDT 01/18/2025 11:17 AM EDT Narrative [facility] - 01/18/2025 11:25 AM EDT Therapeutic decision making should be based on absolute values, rather than percentages. Mirlande Janet Dianne RAW SHELLFISH PREPARER LAB BLOOD ORDERABLES Final Re sult [facility] [address] [place] [address] * CEA, Serum (01/18/2025 10:40 AM EDT) CEA, Serum 2.5 <4.0 ng/mL 01/18/2025 12:54 PM EDT [facility] Blood Blood sample taken from central line / Unknown (Port) Long-term Catheter / Unknown 01/18/2025 10:40 AM EDT 01/18/2025 11:18 AM EDT Narrative [facility] - 01/18/2025 12:54 PM EDT Normal range for smokers: < 5.5 ng/ml Normal range for non-smokers: <=4.0 ng/ml Performed by [employer] electrochemiluminescent immunoassay. Results obtained with different test methods or kits cannot be used interchangeably. Mirlande Dean APRN LAB BLOOD ORDERABLES Final Re sult [facility] [address] [place] [address] documented in this encounter Visit Diagnoses Diagnosis [...] documented as of this encounter Care Teams Lithographic Stripper Relationship Specialty Start Date End Date Constantino Barnes PCP - General 10/03/20 Padmini Ramirez MD [address] [address] Consulting Physician Medical Oncology 02/06/21 Vinny Sargent MD [address] [facility] [address] [place] [address] Radiation Oncologist Radiation Oncology 02/19/21 Mirlande Dean APRN [address] [facility] [address] [place] [address] Nurse Practitioner Internal Medicine 04/10/21 documented as of this encounter
--- OUTSIDE RECORDS SUMMARY | 2025-03-14 12:50 | XMS_ITS | Encounter Summary ---
Author Organization [facility] Address [address] [place] [address] Care Team Providers Care Policy Intern Name Role Phone Constantino Barnes Primary Care Provider Padmini Nava MD Unavailable [phone] Vinny Sargent MD Unavailable [phone] Mirlande Dean APRN Unavailable [phone] Encounter Details Date Type Department Care Team (Latest Contact Info) Description 01/18/2025 Travel Social History Tobacco Use Types Packs/Day [...] Heena Regalado documented as of this encounter Plan of Treatment Upcoming Encounters Date Type Department Care Team (Late st Contact Info) Description 07/21/2025 11:00 AM EDT Clinical Support [facility] [address] [place] [address] 07/21/2025 11:30 AM EDT Office Visit [facility] [address] [place] [address] Mirlande Dean, VARNISH FILTERER 800 [facility] [address] [address] 12/27/2025 7:20 AM EDT Appointment [facility] Rad[facility] [address] [place] [address] 12/27/2025 9:30 AM EDT Office Visit [facility] [address] [place] [address] Mirlande Dean, VARNISH FILTERER 800 [facility] Delores Kellerrickson [address] [address] 12/27/2025 9:45 AM EDT Office Visit [facility] Multidisciplinary Oncology Clinic [address] [place] [address] Shamar Gomez MD [address] [facility] [address] [place] [address] documented as of this encounter Goals Goal Patient Goal Type Associated Problems Recent Progress Patient-Stated? Author Autogenerat ed Goal Care Plan Autogenerated Problem Marguerite Taz Floridalma documented as of this encounter Visit Diagnoses [...] documented as of this encounter Care Teams Policy Intern Relationship Specialty Start Date End Date Constantino Barnes PCP - General 10/03/20 Padmini Ramirez MD [address] [place] [address] Consulting Physician Medical Oncology 02/06/21 Vinny Sargent MD [address] [facility] [address] [place] [address] Radiation Oncologist Radiation Oncology 02/19/21 Mirlande Dean APRN [address] [place] [address] Nurse Practitioner Internal Medicine 04/10/21 documented as of this encounter
--- OUTSIDE RECORDS SUMMARY | 2025-03-14 12:50 | XMS_ITS | Encounter Summary ---
Author Organization [facility] Address [address] [place] [address] Care Team Providers Care Manager Adult Name Role Phone Constantino Barnes Primary Care Provider Padmini Nava MD Unavailable [phone] Vinny Sargent MD Unavailable [phone] Mirlande Dean APRN Unavailable [phone] Reason for Visit * Reason Comments Med Refill Encounter Details Date Type Department Care Team ([facility] st Contact Info) Description 01/28/2022 Refill [facility] Oncology [facility] [address] [place] [address] Padmini Ramirez MD 800 [facility] [address] [place] [address] Social History Tobacco Use Types [...] Description 07/21/2025 11:00 AM EDT Clinical Support [facility] Multidisciplinary Oncology Clinic [address] [place] [address] 07/21/2025 11:30 AM EDT Office Visit [facility] [address] [place] [address] Mirlande Dean, CHOPPER OPERATOR 800 [facility] Delores Andrews [facility] [address] [place] [address] 12/27/2025 7:20 AM EDT Appointment [facility] [address] [place] [address] 12/27/2025 9:30 AM EDT Office Visit [facility] [address] [place] [address] Mirlande Dean, CHOPPER OPERATOR 800 [facility] Darryl [facility] [address] [place] [address] 12/27/2025 9:45 AM EDT Office Visit [facility] Multidisciplinary Oncology Clinic [address] [place] [address] Shamar Gomez MD [address] [facility] [address] [place] [address] documented as of this encounter Visit Diagnoses Not on filedocumented in this encounter Additional Health Concerns Assessment Noted Time A fall risk assessment has been complete d for the patient 12/25/2021 9:48 AM EDT documented as of this encounter Care Teams Manager Adult Relationship Specialty Start Date End Date Constantino Barnes PCP - General 10/03/20 Padmini Ramirez MD 800 [facility] Del[address] [place] [address] Consulting Physician Medical Oncology 02/06/21 Vinny Sargent MD [address] [facility] [address] [place] [address] Radiation Oncologist Radiation Oncology 02/19/21 Mirlande Dean APRN [address] [facility] [address] [place] [address] Nurse Practitioner Internal Medicine 04/10/21 documented as of this encounter
--- OUTSIDE RECORDS SUMMARY | 2025-03-14 12:50 | XMS_ITS | Encounter Summary ---
Author Organization [facility] Address [address] [place] [address] Care Team Providers Care Sap Business Objects Consultant Name Role Phone Constantino Barnes Primary Care Provider Padmini Nava MD Unavailable [phone] Vinny Sargent MD Unavailable [phone] Mirlande Dean SALES AND CUSTOMER RELATIONS REP Unavailable Encounter Details Date Type Department Care Team (Late st Contact Info) Description 06/18/2021 Lab Requisition [facility] [address] [place] [address] Padmini Ramirez MD 800 [facility] [address] [place] [address] Malignant neoplasm of rectum (CMS/HCC) Social History [...] Clinical Support [facility] [address] [place] [address] 07/21/2025 11:30 AM EDT Office Visit [facility] Multidisciplinary Oncology Clinic [address] [place] [address] Mirlande Dean, SALES AND CUSTOMER RELATIONS REP 800 [facility] Darryl dg [facility] [address] [place] [address] 12/27/2025 7:20 AM EDT Appointment [facility] Radiology [address] [place] [address] 12/27/2025 9:30 AM EDT Office Visit [facility] Multidisciplinary Oncology Clinic [address] [place] [address] Mirlande Dean, SALES AND CUSTOMER RELATIONS REP 800 [facility] Darryl [address] [place] [address] 12/27/2025 9:45 AM EDT Office Visit [facility] Multidisciplinary Oncology Clinic [address] [place] [address] Shamar Gomez MD [address] [facility] [address] [place] [address] documented as of this encounter Procedures Procedure Name Priority Date/Time Associated Diagnosis Comments AP MISCELLANEOUS LAB TEST (SO) Routine 06/18/2021 12:00 AM EST Malignant neoplasm of rectum (CMS/HCC) documented in this encounter Results * - Miscellaneous Test (06/18/2021 12:00 AM EST) Test name Kaylie perez 08/02/2021 8:49 AM [facility] Comment:[id number](consult)/[id number] Test Result see scan 08/02/2021 8:49 AM [facility] See Scanned Result 08/02/2021 8:49 AM [facility] Tissue 06/18/2021 06/18/2021 3:0 0 PM EST us Padmini Ramirez MD LAB REF LAB BLOOD AND FLUID OR D Final Result [facility] documented in this encounter Visit Diagnoses Diagnosis Malignant neoplasm of rectum (CMS/HCC) Malignant neoplasm of rectum documented in this encounter Additional Health Concerns Assessment Noted Time A fall risk assessment has been complete d for the patient 06/12/2021 11:05 AM EST documented as of this encounter Care Teams [employer] Business [employer] Consultant Relationship Specialty Start Date End Date Constantino Barnes PCP - General 10/03/20 Padmini Ramirez MD [address] Andrews [facility] [address] [place] [address] Consulting Physician Medical Oncology 02/06/21 Vinny Sargent MD [address] [place] [address] Radiation Oncologist Radiation Oncology 02/19/21 Mirlande Dean APRN [address] Delores Kellerrickson [facility] [address] [place] [address] Nurse Practitioner Internal Medicine 04/10/21 documented as of this encounter
--- OUTSIDE RECORDS SUMMARY | 2025-03-14 12:50 | XMS_ITS | Clinical Summary ---
Author Organization [facility] Address [address] [place] [address] Care Team Providers Care Cell Reliner Name Role Phone Constantino Barnes Primary Care Provider Padmini Nava MD Unavailable [phone] Vinny Sargent MD Unavailable [phone] Mirlande Dean APRN Unavailable Allergies No known active allergies Medications allopurinol (Zyloprim) 100 MG tablet Take 1 tablet by mouth 2 times a day. Active lisinopril 10 MG tablet Take 1 tablet by mouth once daily 90 tablet 3 01/28/2022 Active lidocaine-prilo bernardo (Emla) 2.5-2.5 % cream APPLY TO PORT A CATH 30 MINUTES PRIOR TO PORT ACCESS 30 g 11/24/2024 Active meloxicam (Mobic) 15 MG tablet Take 1 tablet by mouth daily. 10/15/2024 Active Active Problems Problem Noted Date Diagnosed Date Tobacco use disorder 06/12/2021 HTN (hypertension) 11/10/2020 High cholesterol 11/10/2020 Alcohol consumption of more than four drinks per day 10/30/2020 Rectal cancer 10/03/2020 Cancer Staging:Clinical stage from 09/25/2020:Stage IIIA(cT2, cN1b, cM0) - Signed by Padmini Ramirez MD on 10/30/2020 Pathologic stage from 05/22/2022: rpT2, rcN0, rcM0 - Signed by Padmini Ramirez MD on 06/19/2022 Resolved Problems Problem Noted Date Diagnosed Date Resolved Date Hematochezia 10/03/2020 01/09/2025 Encounters Date Type Department Care Team Description 01/18/2025 11:00 AM EDT Clinical [address] [facility] Multidisciplinary Oncology Clinic [address] [place] [phone] Alysha Caban RN Rectal cancer ([facility]/HCC) 01/18/2025 10:30 [address] EDT [address] [facility] Multidisciplinary Oncology Clinic [address] [place] [address] Shamar Gomez MD Rectal cancer ([facility]/HCC) (Primary Dx) 01/18/2025 7:17 AM EDT - 01/18/2025 11:59 PM EDT Hospital Encounter [facility] [address] [place] [address] Rectal cancer ([facility]/HCC) Discharge Disposition: Home or Self Care 01/18/2025 Travel from Last 3 Months Family History 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 Relation Name Comments Cervical cancer Mother Anesthesia problems Neg Hx Malig Hyperthermia Neg Hx Relation Name Status Comments Mother Social History Tobacco Use Types Packs/Day Years Used Date Smoking Tobacco: Former Cigarettes 2 1 7 - 1986 Passive Smoke Exposure: [...] Mass Index 32.29 01/18/2025 10:41 AM EDT Plan of Treatment Upcoming Encounters Date Type Department Care Team (Late st Contact Info) Description 07/21/2025 11:00 AM EDT Clinical Support [facility] [address] [place] [phone] 07/21/2025 11:30 AM EDT Office Visit [facility] [address] [place] [address] Mirlande Dean, SUSAN [address] [address] 12/27/2025 7:20 AM EDT Appointment [facility] Radiology [address] [place] [address] 12/27/2025 9:30 AM EDT Office Visit [facility] [address] [place] [address] Mirlande Dean, SUSAN [address] [address] 12/27/2025 9:45 AM EDT Office Visit [facility] [address] [place] [address] Shamar Gomez MD [address] [facility] [address] [place] [address] Health Maintenance Due Date Last Done Comments [facility]-Hepatitis C Screening 1950 [facility]-Medicare Annual Wellness (AWV) 1950 [facility]-Infant/Child/Adol SDOH Screenings 1950 [facility]- SDOH Screenings 1969 [facility]-Adult SDOH Screenings 1969 [facility]-Zoster Vaccines (1 of 2) 1970 CT Colonography 1996 FIT-DNA 1996 FIT 1996 FOBT 1996 [facility]-Abdominal Aortic Aneurysm (AAA) Screening 2016 [id number] Vaccine ( season) 2024 04/24/2023, 03/12/2022, 09/27/2021, Additional history exists [facility]-Influenza Vaccine (#1) 12/20/202403/09, 03/11/2023, 01/31/2022, Additional history exists [facility]-Depression Screening 01/18/2026 01/18/2025, 11/19 Colonoscopy 08/30/2027 08/30/2024, 08/26/2022 [facility]-Colorectal Cancer Screening 08/30/2027 Sigmoidoscopy 11/30/2028 12/01/2023, 02/0 08/2023, 12/02/2022, Additional history exists [facility]-DTaP,Tdap,and Td Vaccines (2 - Td or Tdap) 10/13/2031 10/12/2021 [facility]-RSV Vaccine: 60+ Years or Completed 03/20/2023 [facility]-Pneumococcal Vaccine: 50+ Years Completed 09/24/2023, 02/09/2019, 02/21/2017 [facility]-Obesity Intervention Completed 025, 06/29/2024, 12/02/2023, Additional history exists HPV Vaccines Aged Out [...] [employer] Implanted Type Area Braille Coder Device Identifier Shelf Expiration Date Model / Serial / Lot Port Chayaue Power 8fr - [id number] - [id number] Implanted:Qty : 1 on 11/10/2020 by Renetta Florence MD at [facility] Implant N/A: Chest [employer]-[id number] 02/18/2022 [id number] / [id number] / Procedures Procedure Name Priority Date/Time Associated Diagnosis Comments SIGNATERA ONLY Routine 01/18/2025 10:40 AM EDT Rectal cancer (CMS/HCC) COMPREHENSIVE METABOLIC PANEL, PLASMA Routine 01/18/2025 10:40 AM EDT Rectal cancer (CMS/HCC) CBC WITH AUTO DIFFERENTIAL Routine 01/18/2025 10:40 AM EDT Rectal cancer (CMS/HCC) CEA, SERUM Routine 01/18/2025 10:40 AM EDT Rectal cancer (CMS/HCC) CT ABDOMEN PELVIS W IV CONTRAST Routine 01/18/2025 8:31 AM EDT Rectal cancer (CMS/HCC) CT CHEST W IV CONTRAST Routine 5 8:31 AM EDT Rectal cancer (CMS/HCC) COLONOSCOPY Routine 08/30/2024 8:25 AM EDT Rectal cancer (CMS/HCC) FLEXIBLE SIGMOIDOSCOPY Routine 9:42 AM EDT Rectal cancer (CMS/HCC) from Last 3 Months or Most Recently Relevant to Health Maintenance Results * Signatera Only Single Draw (01/18/2025 10:40 AM EDT) SIGNATERA TEST RESULT NEGATIVE 11/2024 9:07 PM [...] Nature Cancer. 2020;1(9):873-881. 2 Brent FUENTES, Sylvester Crawford, et al., Circulating Tumor DNA in Stage III Colorectal Cancer, beyond Minimal Residual Disease Detection, toward Assessment of Adjuvant Therapy Efficacy and Clinical Behavior of Recurrences. Clin Cancer Res. 2020; 28(3):507-517. Methodology FFPE samples are assessed by a pathologist to identify tumor margins and percent tumor content. Tumor DNA is extracted using Qiagen AllPrep. Whole genomic DNA is isolated from peripheral blood using QIAamp DNA Blood Mini Kit to provide a baseline DNA sequence. Circulating tumor DNA (ctDNA) is extracted from plasma derived from whole blood samples collected in cell-free DNA blood tubes ([facility]) using the QIABAM Labsmphony automated or manual extraction method (Qiagen). Using a proprietary algorithm, putative, clonal variants present in the tumor but absent in the germline DNA are identified to design the customized multiplex PCR assay. Whole-exome sequencing is performed on tumor and peripheral blood DNA using ManicubePrep library kit ([employer]) with a custom [employer] exome capture ([employer]). Using a proprietary algorithm, putative clonal variants present in the tumor but absent in the germline DNA are identified to design the customized multiplex PCR assay. Circulating tumor DNA is extracted from plasma collected in Streck tubes using [employer] proprietary methods. The customized PCR assays are [...] and whole exome sequencing are performed at [facility] (CLIA ID# [id number]) [address] [place] [address]. Disclaimer The extraction, library preparation, and sequencing for this test were performed by [facility] [address] [place] [address] A [facility] [address], [place] [address] (CLIA ID [id number]). The data analysis and reporting for this test were performed by [facility] [address] [facility]. [place] [address] (CLIA ID [id number]). This test was developed and its performance characteristics determined by [facility]. The test has not been cleared or approved by the U.S. Food and Drug Administration (FDA). CAP accredited, ISO 38078 certified, and CLIA certified. Pathology services and whole exome sequencing for this test were performed by [facility] [address] [place] [address] (CLIA ID [id number]). 2020 [employer]. All Rights Reserved. Blood Venous blood specimen / Unknown (Port) Long-term Catheter / Unknown 01/18/2025 10:40 AM EDT 01/18/2025 10:42 AM EDT us Mirlande Dean EDITOR PRODUCER [facility] BLOOD ORDERABLES Final Result [facility] [address] [place] [address], * (ABNORMAL) CBC and Differential (01/18/2025 10:40 AM EDT) WBC Count 4.12 3.70 - 10.30 10*3/uL LAB HEMATOLOGY METHOD 01/18/2025 11:25 AM EDT [facility] RBC Count 3.73(L) 4.60 - 6.10 10*6/uL LAB HEMATOLOGY METHOD 01/18/2025 11:25 AM EDT [facility] HGB 12.4(L) 13.7 - 17.5 g/dL LAB HEMATOLOGY METHOD 01/18/2025 11:25 AM EDT [facility] HCT 36.9(L) 40.0 - 51.0 % LAB HEMATOLOGY METHOD 01/18/2025 11:25 AM EDT [facility] Platelet Count 198 155 - 369 10*3/uL LAB HEMATOLOGY METHOD 01/18/2025 11:25 AM EDT [facility] MCV 99(H) 79 - 98 fL LAB HEMATOLOGY METHOD 01/18/2025 11:25 AM EDT [facility] MCH 33.2(H) 26.0 - 32.0 pg LAB HEMATOLOGY METHOD 01/18/2025 11:25 AM EDT [facility] MCHC 33.6 30.7 - 35.5 g/dL LAB HEMATOLOGY METHOD 01/18/2025 11:25 AM EDT [facility] RDW 13.7 11.5 - 14.5 % LAB HEMATOLOGY METHOD 01/18/2025 11:25 AM EDT [facility] MPV 10.9 8.8 - 12.5 fL LAB HEMATOLOGY METHOD 01/18/2025 11:25 AM EDT [facility] nRBC 0.0 <=0.0 per 100 WBCs LAB HEMATOLOGY METHOD 01/18/2025 11:25 AM EDT [facility] Differential Type Automated LAB HEMATOLOGY METHOD 01/18/2025 11:25 AM EDT [facility] Neutrophils % 64 % LAB HEMATOLOGY METHOD 01/18/2025 11:25 AM EDT [facility] Lymphocytes % 23 % LAB HEMATOLOGY METHOD 01/18/2025 11:25 AM EDT [facility] Monocytes % 9 % LAB HEMATOLOGY METHOD 01/18/2025 11:25 AM EDT [facility] Eosinophils % 2 % LAB HEMATOLOGY METHOD 01/18/2025 11:25 AM EDT [facility] Basophils % 1 % LAB HEMATOLOGY METHOD 01/18/2025 11:25 AM EDT [facility] Immature Granulocytes % 1 % LAB HEMATOLOGY METHOD 01/18/2025 11:25 AM EDT [facility] Neutrophils Absolute 2.68 1.60 - 6.10 10*3/uL LAB HEMATOLOGY METHOD 01/18/2025 11:25 AM EDT [facility] Lymphocytes Absolute 0.95(L) 1.20 - 3.90 10*3/uL LAB HEMATOLOGY METHOD 01/18/2025 11:25 AM EDT [facility] Monocytes Absolute 0.35 0.30 - 0.90 10*3/uL LAB HEMATOLOGY METHOD 01/18/2025 11:25 AM EDT [facility] Eosinophils Absolute 0.09 0.00 - 0.50 10*3/uL LAB HEMATOLOGY METHOD 01/18/2025 11:25 AM EDT [facility] Basophils Absolute 0.03 0.00 - 0.10 10*3/uL LAB HEMATOLOGY METHOD 01/18/2025 11:25 AM EDT [facility] Immature Granulocytes Absolute 0.02 0.00 - 0.06 10*3/uL LAB HEMATOLOGY METHOD 01/18/2025 11:25 AM EDT [facility] Blood Blood sample taken from central line / Unknown (Port) Long-term Catheter / Unknown 01/18/2025 10:40 AM EDT 01/18/2025 11:17 AM EDT Narrative [facility] - 01/18/2025 11:25 AM EDT Therapeutic decision making should be based on absolute values, rather than percentages. Mirlande Janet Dianne EDITOR PRODUCER LAB BLOOD ORDERABLES Final Re sult Performing Organization Address [facility] Co de Phone Number [facility] [address] [place] [address] * CEA, Serum (01/18/2025 10:40 AM EDT) CEA, Serum 2.5 <4.0 ng/mL 01/18/2025 12:54 PM EDT [facility] Blood Blood sample taken from central line / Unknown (Port) Long-term Catheter / Unknown 01/18/2025 10:40 AM EDT 01/18/2025 11:18 AM EDT Narrative [facility] - 01/18/2025 12:54 PM EDT Normal range for smokers: < 5.5 ng/ml Normal range for non-smokers: <=4.0 ng/ml Performed by [employer] electrochemiluminescent immunoassay. Results obtained with different test methods or kits cannot be used interchangeably. Mirlande Janet Dean APRN LAB BLOOD ORDERABLES Final Re sult [facility] [address] [place] [address] * Comprehensive Metabolic Panel, Plasma (01/18/2025 10:40 AM EDT) Glucose, Plasma 85 74 - 99 mg/dL 01/18/2025 11:52 AM EDT [facility] BUN, Plasma 15 8 - 23 mg/dL 01/18/2025 11:52 AM EDT [facility] Creatinine, Plasma 0.73 0.70 - 1.20 mg/dL 01/18/2025 11:52 AM EDT [facility] BUN/Creatinine Ratio 21 01/18/2025 11:52 AM EDT [facility] Sodium, Plasma 139 136 - 145 mmol/L 01/18/2025 11:52 AM EDT [facility] Potassium, Plasma 4.2 3.6 - 4.9 mmol/L 01/18/2025 11:52 AM EDT [facility] Chloride, Plasma 107 97 - 107 mmol/L 01/18/2025 11:52 AM EDT [facility] CO2, Plasma 22 22 - 29 mmol/L 01/18/2025 11:52 AM EDT [facility] Anion Gap 10 6 - 16 mmol/L 01/18/2025 11:52 AM EDT [facility] Total Calcium, Plasma 9.1 8.9 - 10.2 mg/dL 01/18/2025 11:52 AM EDT [facility] Total Protein 6.7 6.3 - 7.9 g/dL 01/18/2025 11:52 AM EDT [facility] Albumin, Plasma 4.2 3.5 - 5.2 g/dL 01/18/2025 11:52 AM EDT [facility] AST, Plasma 28 10 - 50 U/L 01/18/2025 11:52 AM EDT [facility] ALT, Plasma 27 10 - 50 U/L 01/18/2025 11:52 AM EDT [facility] Alkaline Phosphatase, Plasma 77 40 - 115 U/L 01/18/2025 11:52 AM EDT [facility] Total Bilirubin, Plasma 0.6 0.2 - 1.1 mg/dL 01/18/2025 11:52 AM EDT [facility] eGFRcr 96.1 mL/min/1.7 3m*2 01/18/2025 11:52 AM EDT [facility] Comment:Reported eGFRcr in m L/min/1.73m2 is based the CKD-EPI 2020 equation that does not use a race coefficient. Blood Blood sample taken from central line / Unknown (Port) Long-term Catheter / Unknown 01/18/2025 10:40 AM EDT 01/18/2025 11:18 AM EDT us Mirlande Dean EDITOR PRODUCER LAB BLOOD ORDERABLES Final Re sult [facility] [address] [place] [address] * CT Abdomen Pelvis w IV Contrast [...] Total DLP (Dose-Length Product): 1458.72 mGy.cm (accession [id number]), 1458.72 mGy.cm (accession [id number]) Please note: The reported value represents the [...] Total DLP (Dose-Length Product): 1458.72 mGy.cm (accession [id number]),1458.72 mGy.cm (accession [id number]) Please note: The reported valuerepresents the total [...] Total DLP (Dose-Length Product): 1458.72 mGy.cm (accession [id number]), 1458.72 mGy.cm (accession [id number]) Please note: The reported value represents the [...] Total DLP (Dose-Length Product): 1458.72 mGy.cm (accession [id number]),1458.72 mGy.cm (accession [id number]) Please note: The reported valuerepresents the total [...] MD IMG CT PROCEDURES Final Result * Colonoscopy (08/30/2024 8:25 AM EDT) Anatomical [...] anesthesia administered medications. Staff Staff Role Laurel Santo, PAMELA Endo Nurse Shamar Gomez MD Proceduralist Ariadne Marley Endo Slider Assembler Pepe William MD Anesthesiologist Mayra Garcias CRNA, MICHAEL SENIOR INVESTIGATOR Preprocedure A history and physical has been [...] of bowel preparation was evaluated using the [place] Bowel Preparation Scale with scores of: right [...] 1 year. Recommendations Other Indication Rectal cancer ([facility]) Medications See anesthesia record for [...] of bowel preparation was evaluated using the [place] Bowel Preparation Scale with scores of: left [...] Diagnosed Date Autogenerated Problem 06/29/2024 [place] [address] [facility] Care Teams Cell Reliner Relationship Specialty Start Date End Date Constantino Barnes PCP - General 10/03/20 Padmini Ramirez MD [address] [facility] [address] [place] [address] Consulting Physician Medical Oncology 02/06/21 Vinny Sargent MD [address] [address] Radiation Oncologist Radiation Oncology 02/19/21 Mirlande Dean APRN [address] [address] Nurse Practitioner Internal Medicine 04/10/21
--- OUTSIDE RECORDS SUMMARY | 2025-03-14 12:50 | XMS_ITS ---
Author Organization [facility] Address [address] [place] [address] Care Team Providers Care Deposit Clerk Name Role Phone Constantino Barnes Primary Care Provider Padmini Nava MD Unavailable [phone] Vinny Sargent MD Unavailable [phone] Mirlande Dean APRN Unavailable Active Problems [...] Signed by Padmini Ramirez MD on 06/19/2022 Current Treatment and Therapy Plans (ONC) MED [...] 14 Days x 2 Every 28 Days 1 03/20/2021 5-FU (Adrucil)5-FU (Adrucil) infusion - for [...] Kerma 15.9 mGy 15.9 mGy 0 mGy Resolved Problems Problem Noted Date Diagnosed Date Resolved Date Hematochezia 10/03/2020 01/09/2025
--- OUTSIDE RECORDS SUMMARY | 2025-03-14 12:51 | XMS_ITS | Encounter Summary ---
Author Organization [facility] Address [address] [place] [address] Care Team Providers Care Traffic Operator Name Role Phone Constantino Barnes Primary Care Provider Padmini Nava MD Unavailable [phone] Vinny Sargent MD Unavailable [phone] Mirlande Dean APRN Unavailable [phone] Encounter Details Date Type Department Care Team (Late st Contact Info) Description 10/03/2020 Lab Requisition [facility] [address] [place] [address] Shamar Gomez MD [address] [facility] [address] [place] [address] Other specified diseases of anus [...] Description 07/21/2025 11:00 AM EDT Clinical Support [facility] Multidisciplinary Oncology Clinic [address] [place] [address] 07/21/2025 11:30 AM EDT Office Visit [facility] Multidisciplinary Oncology Clinic [address] [place] [address] Mirlande Dean, SUSAN [address] [facility] [address] [address] 12/27/2025 7:20 AM EDT Appointment [facility]iology [address] [place] [address] 12/27/2025 9:30 AM EDT Office Visit [facility] Multidisciplinary Oncology Clinic [address] [place] [address] Mirlande Dean, TITLE OFFICER [address] [facility] [address] [address] 12/27/2025 9:45 AM EDT Office Visit [facility] Multidisciplinary Oncology Clinic [address] [place] [phone] Shamar Gomez MD [address] [facility] [address] [place] [phone] documented as of this encounter Procedures Procedure Name Priority Date/Time Associated Diagnosis Comments SURGICAL PATHOLOGY CONSULT Routine 10/03/2020 1:58 PM EDT Other specified diseases of anus and rectum documented in this encounter Results * Surgical Pathology Consult (10/03/2020 1:58 PM EDT) Case Report Sugical Pathology Consult Case: [id number] Authorizing Provider: Shamar Gomez MD Collected: 10/03/2020 1358 Ordering Location: [facility] Lab Received: 10/03/2020 1358 Pathologist: Jef Gloria MD Specimen: Rectal, [id number] 12:53 PM EDT [email or web address] Addendum This addendum is to document the provided clinical information: Rectal bleeding 12:53 PM EDT [email or web address] Addendum electronically signed by Jef Gloria MD on 10/12/2020 at 1253 EDT Comment:These results have b een appended to a previously final verified report. Final Diagnosis RECTAL MASS, BIOPSIES (OUTSIDE SLIDES COLLECTED 09/25/20): - INVASIVE MODERATELY DIFFERENTIATED ADENOCARCINOMA. - PER REPORT, TUMOR SHOWS INTACT STAINING FOR MSI IMMUNOHISTOCHEMISTRY (LOW PROBABILITY MSI-H RELATED TUMOR). 12:53 PM EDT [email or web address] at 1358 EDT Microscopic Description Tumor invades into submucosa of biopsied tissue. 12:53 PM EDT [facility] Tissue Specimen from rectum / Unknown 10/03/2020 1:58 PM EDT 10/03/2020 1:58 PM EDT us Shamar Gomez MD LAB PATHOLOGY ORDERABLES Edite d Result - Final [facility] [address] [place] [address] documented in this encounter Visit Diagnoses Diagnosis Other specified diseases of anus and rectum documented in this encounter Additional Health Concerns Assessment Noted Time A fall risk assessment has been complete d for the patient 10/03/2020 8:40 AM EDT documented as of this encounter Care Teams Traffic Operator Relationship Specialty Start Date End Date Constantino Barnes PCP - General 10/03/20 Padmini Ramirez MD [address] [facility] [address] [place] [address] Consulting Physician Medical Oncology 02/06/21 Vinny Sargent MD [address] [place] [phone] Radiation Oncologist Radiation Oncology 02/19/21 Mirlande Dean APRN [address] [facility] [address] [place] [phone] Nurse Practitioner Internal Medicine 04/10/21 documented as of this encounter
== END 2025-03-14 23:59 | disposition home or self-care (01) ==
LOC: INF 12:46
PROVIDERS: PCP Family Medicine; Visit Provider Internal Medicine Hematology & Oncology
DX: C20 Malignant neoplasm of rectum (principal)
CPT/HCPCS: 96523; J1642